=== PATIENT | male | born 1965 | race Two or more races ===

== ENCOUNTER 2020-05-09 06:16 | Outpatient (REF) | payer OTHER, SELFPAY ==
[2020-05-09 07:35] LABS: Alanine Aminotransferase 19 U/L (0-40); Alkaline Phosphatase 52 U/L (39-117); Anion Gap 10 (12-20); Aspartate Amino Transferase 18 U/L (5-37); Bilirubin Total 0.9 mg/dL (0.0-1.0); Blood Urea Nitrogen 18 mg/dL (9-16); Calcium 8.9 mg/dL (8.4-10.2); Carbon Dioxide 33 mmol/L (22-29); Chloride 101 mmol/L (96-108); Cholesterol 183 mg/dL; Estimated Glomerular Filt Rate 54; Glucose Fasting 100 mg/dL (60-99); HDL Cholesterol 47 mg/dL; LDL Cholesterol Calculated 123 mg/dl; Potassium 3.6 mmol/l (3.3-5.1); Sodium 140 mmol/L (135-145); Total Protein 6.8 g/dL (6.5-8.0); Triglycerides 65 mg/dL
[2020-05-09 07:56] LABS: TSH reflex Free T4 2.18 mIU/mL (0.32-4.0)
== END 2020-05-09 06:17 | disposition home or self-care (01) ==
LOC: HO.LAB 06:16
PROVIDERS: PCP Internal Medicine; Visit Provider Internal Medicine
DX: E78.00 Pure hypercholesterolemia, unspecified (principal); I12.9 Hypertensive chronic kidney disease with stage 1 through stage 4 chronic kidney disease, or unspecified chronic kidney disease; N18.30 Chronic kidney disease, stage 3 unspecified; E66.3 Overweight
CPT/HCPCS: 80053; 80061; 84443

== ENCOUNTER 2020-06-10 08:56 | Outpatient (REF) | payer OTHER, SELFPAY | END 2020-06-10 08:57 | disposition home or self-care (01) | LOC: HO.LAB 08:56 | PROVIDERS: PCP Internal Medicine; Visit Provider Internal Medicine | DX: Z20.828 Contact with and (suspected) exposure to other viral communicable diseases (principal) | CPT/HCPCS: C9803; U0003 ==

== ENCOUNTER 2020-08-31 14:56 | Outpatient (REF) | payer OTHER, SELFPAY ==
--- NOTE | 2020-08-31 16:00 | MHC.AU.P13 ---
Adult Audiological Evaluation Date of Visit: 08/31/20 Reason for Appointment: Patient has been noticing tinnitus in his right ear for at least one year. He reports that it is intermittent, but frequent. He may experience it for several days in a row, then go a few days without it. When it occurs, it is bothersome and is accompanied by a sensation that his ear is blocked. He reports occasional dizziness, which he describes as being on a boat or feeling off-balance. Overall, he has not noticed hearing difficulty in his day-to-day life. Does patient feel they have a hearing loss?: No Has hearing been tested previously?: No Hearing Handicap Inventory: HHIE SCORE: 2 Based on HHIE score, patient has: No perceived hearing handicap Ear History: Ear Deformity: None Reported Recent Ear Drainage: None Reported Recent Ear Pain: None Reported Recent Ear Infections: None Reported Ear Infections in Childhood: None Reported History of Ear Wax Buildup: None Reported Previous Ear Surgery: None Reported Bothersome Tinnitus/Ringing/Noises in Ears: Right Ear Ear used on the phone: Right Ear Blocked/Full Sensation in Ear(s): Right Ear History of occupational noise exposure?: Yes: 30 years in [employer] History: No Medical History: Medical History: Headache, High Blood Pressure Medical History: Stroke in 2012 Otoscopy: Right Ear: Unremarkable Left Ear: Unremarkable Tympanometry: Tympanometry performed due to: To assess integrity of the middle ear system Right Ear: Normal Middle Ear System (Type A) Left Ear: Normal Middle Ear System (Type A) Acoustic Reflexes: Screening Ipsilateral Reflex Probe Right Ear: Screening Ipsilateral Reflex Present at 1000 Hz Probe Left Ear: Screening Ipsilateral Reflex Present at 1000 Hz Otoacoustic Emissions Frequency Range Used: 1.6-8 kHz Right Ear Results: Present 1.6-2.5 kHz, absent 3.2-8.0 kHz Analysis: Reduced/Absent emissions suggest cochlear dysfunction Results are consistent with degree and configuration of hearing loss Left Ear Results: Present 1.6-3.6 kHz, absent 4.0-8.0 kHz Analysis: Reduced/Absent emissions suggest cochlear dysfunction Results are consistent with degree and configuration of hearing loss Hearing Evaluation: Transducer(s) Used: Insert Earphones (Double-chcked with Circumaural Headphones) Method: Conventional Audiometry Stimuli Used: Pure Tones Right Ear: Description of Hearing: Moderate rising to mild and sloping to moderate sensorineural hearing loss Left Ear: Description of Hearing: Normal from 250-3000 Hz, sloping to moderate sensorineural hearing loss Speech Recognition Threshold (SRT): Method Used: Recorded Lists Stimuli Used: Spondee Words Right Ear: 35 dBHL Left Ear: 5 dBHL Word Discrimination: Method: Recorded Lists Word Lists Used: NU-6 Right Ear: 72% at 70 dBHL Left Ear: 100% at 55 dBHL Most Comfortable Level (MCL): Right Ear: 70 dBHL Left Ear: 55 dBHL Interpretation of Results: Significant asymmetry noted- right ear worse Recommendations: Referral to Ear, Nose, and Throat is highly recommended to address newly-diagnosed asymmetrical sensorineural hearing loss. Diagnosis: Primary Diagnosis: H90.3 Bilateral Sensorineural Hearing Loss Secondary Diagnosis: H93.11 Tinnitus, Right Ear Services Performed: Comprehensive Audiological Evaluation (CPT 12038), Limited Otoacoustic Emissions (CPT 19771), Tympanometry (CPT 20492) Signature: Provider: Rissa Landers, CCC-A
== END 2020-08-31 14:57 | disposition home or self-care (01) ==
LOC: HO.SH 14:56
PROVIDERS: Visit Provider Internal Medicine
DX: H90.3 Sensorineural hearing loss, bilateral (principal); H93.11 Tinnitus, right ear
CPT/HCPCS: 92557; 92567; 92587

== ENCOUNTER 2020-09-18 05:44 | Emergency (ER) | payer OTHER, SELFPAY ==
--- NOTE | 2020-09-18 | ECG_ITS ---
Test Reason : EPIGASTRIC PAIN Blood Pressure : / mmHG Vent. Rate : 067 BPM Atrial Rate : 067 BPM P-R Int : 152 ms QRS Dur : 080 ms QT Int : 442 ms P-R-T Axes : 044 013 043 degrees QTc Int : 467 ms Normal sinus rhythm Normal ECG No previous ECGs available Referred By: Generic ED Physician Electronically Signed By:PRANAV SUAREZ
--- NOTE | ~2020-09-18 | CT_ITS ---
EXAMINATION: CT ABDOMEN AND PELVIS WITHOUT CONTRAST CLINICAL INFORMATION: Abdominal pain. COMPARISON: July 03, 2015. TECHNIQUE: Contiguous axial thin section helical images of the abdomen and pelvis were performed without oral or IV contrast. The data set was reformatted in the coronal and sagittal planes and reviewed on an independent workstation. DLP: 741 mGy-cm. FINDINGS: There is atelectasis or scarring within the lateral basal segment of the right lower lobe. The visualized lung bases are otherwise clear. The visualized portions of the heart are unremarkable. The liver is of normal size and attenuation without focal lesions nor intrahepatic biliary ductal dilation. There are calculi within the gallbladder lumen. There is no wall thickening or discernible pericholecystic fluid. The spleen, pancreas, adrenal glands are unremarkable. Both kidneys are of normal size and attenuation without hydronephrosis or nephrolithiasis. There is no abdominal free fluid. There is neither mesenteric nor retroperitoneal lymphadenopathy. Normal unopacified loops of small and large bowel are identified. A normal appendix is identified. There is no pelvic free fluid. The urinary bladder is unremarkable. There is neither pelvic nor inguinal lymphadenopathy. There is a fat-containing right inguinal hernia. Bone windows: Neither sclerotic nor lytic bone lesions are identified. CT/CT abdomen pelvis wo con IMPRESSION: No acute abdominal or pelvic inflammatory or infectious processes. Cholelithiasis without evidence of cholecystitis. Automated exposure control (Care Dose) Adjustment of the mA and/or kv according to patient size (this includes techniques or standardized protocols for targeted exams where dose is matched to indication / reason for exam; i.e. extremities or head).
[2020-09-18 06:01] VITALS: BP 124/80; PULSE 63; RESP 22; TEMP 36.3; O2SAT 94; BMI 29.5
--- NOTE | 2020-09-18 06:14 | PC.NURSE ---
Pt ambulating from the waiting room into room 18. Pt is CAOx4, speaking full sentences but holding abdomen, grimacing, unable to find a comfortable position. Pt reports sharp pains to epigastric area radiating into chest, denies burning sensation. Pt also reporting SOB, denies N/V. IV established, labs obtained. EKG obtained by solder technician. Awaiting primary MD jose.
[2020-09-18 06:23] LABS: MANUAL DIFF FLAG NO
[2020-09-18 06:30] LABS: Basophils Absolute Auto 0.1 X10*3/uL (0.0-0.2); Basophils Percent Auto 0.8 % (0-2); Eosinophils Absolute Auto 0.6 X10*3/uL (0.0-0.4); Eosinophils Percent Auto 6.6 % (0-4); Hematocrit 43.4 % (42-52); Hemoglobin 14.5 g/dl (14.0-18.0); Imm Gran Abs Auto 0.04 X10*3/uL (0.00-0.03); Imm Gran Pct Auto 0.4 % (0.0-0.4); Lymphocytes Absolute Auto 3.2 X10*3/uL (1.2-4.9); Lymphocytes Percent Auto 34.7 % (20-40); Mean Corpuscular HGB Conc 33.4 g/dl (31.0-36.0); Mean Corpuscular Hemoglobin 28.7 pg (27.0-33.0); Mean Corpuscular Volume 85.8 fL (80-98); Mean Platelet Volume 10.1 fL (9.4-12.4); Monocytes Absolute Auto 0.9 X10*3/uL (0.1-1.2); Monocytes Percent Auto 9.3 % (2-11); Neutrophils Absolute Auto 4.5 X10*3/uL (2.0-8.3); Neutrophils Percent Auto 48.2 % (45-73); Platelet Count 226 X10*3/uL (160-400); Red Blood Count 5.06 X10*6/uL (4.60-5.80); Red Cell Distribution Width 12.6 % (11.0-16.0); White Blood Count 9.3 X10*3/uL (4.8-10.8)
[2020-09-18 06:48] LABS: Alanine Aminotransferase 32 U/L (0-40); Albumin Level 4.1 g/dL (3.5-5.0); Alkaline Phosphatase 61 U/L (39-117); Anion Gap 14 (12-20); Aspartate Amino Transferase 49 U/L (5-37); Bilirubin Direct 0.4 mg/dL (0.0-0.5); Bilirubin Total 0.7 mg/dL (0.0-1.0); Blood Urea Nitrogen 24 mg/dL (9-16); Calcium 9.1 mg/dL (8.4-10.2); Carbon Dioxide 28 mmol/L (22-29); Chloride 102 mmol/L (96-108); Creatinine Clr Calc Pharmacy 71.4; Estimated Glomerular Filt Rate 57; Glucose Random 162 mg/dL (60-115); Lipase 23 U/L (8-78); Potassium 3.4 mmol/L (3.3-5.1); Sodium 141 mmol/L (135-145); Total Protein 6.9 g/dL (6.5-8.0)
--- NOTE | 2020-09-18 06:53 | ED.ABDPAIN ---
HPI - Abdominal Pain General Chief Complaint: Abdominal Pain Stated Complaint: abd pain Time Seen by Provider: 09/18/20 06:15 Source: patient Mode of arrival: ambulatory Limitations: no limitations History of Present Illness HPI narrative: [age] year old male came in with upper pain started since last night described the pain as sharp pain localized to the epigastric area with no radiation, pain is constant since last night, describes the pain as severe 7/10, did not try to eat so do not know if food will make it worse, but nothing make it better either, associated with sweating but no any other symptoms specifically no nausea, no vomiting, no diarrhea. Never had similar abdominal pain past. Patient admitted to drinking alcohol last night. Related Data Home Medications Medication Instructions Recorded Confirmed aspirin 81 mg tablet,delayed 81 mg PO DAILY 05/09/20 08/15/20 release multivitamin 1 tab PO DAILY 08/15/20 08/15/20 Previous Rx's Medication Instructions Recorded lisinopril 20 1 tab PO DAILY 90 Days #90 tab 05/10/20 mg-hydrochlorothiazide 12.5 mg tablet pravastatin 20 mg tablet 20 mg PO DAILY 90 Days #90 tab 05/10/20 Allergies Allergy/AdvReac Type Severity Reaction Status Date / Time No Known Allergies Allergy Verified 08/15/20 17:23 [No Known Allergies*] Review of Systems Review of Systems All other systems are reviewed and are negative Constitutional: Reports as per HPI and Reports no additional constitutional complaints Eyes: Reports as per HPI and Reports no additional eye complaints Reports system reviewed and no additional complaints, except as documented Cardiovascular: Reports as per HPI and Reports no additional cardiovascular complaints Respiratory: Reports as per HPI and Reports no additional respiratory complaints Gastrointestinal: Reports as per HPI and Reports no additional gastrointestinal complaints Genitourinary: Reports no additional female genitourinary complaints Musculoskeletal: Reports no additional musculoskeletal complaints Skin/Breast: Reports system reviewed and no additional complaints, except as docu Psychiatric: Reports no additional psychiatric complaints Endocrine: Reports no additional endocrine complaints Hematologic/Lymphatic: Reports no additional hematologic/lymphatic complaints Allergic/Immunologic: Reports no additional allergic/immunologic complaints Reports system reviewed and no additional complaints, except as documented and Reports Abnormal speech present Physical Exam Vital Signs: Vital Signs: Last Vital Signs Temp 97.4 F 09/18/20 06:01 Pulse 63 09/18/20 06:01 Resp 22 H 09/18/20 06:01 BP 124/80 03/22/21 06:01 Pulse Ox 94 09/18/20 06:01 Body Mass Index 29.5 Vital signs have been reviewed as appeared to be correct. Blood pressure normal. Heart rate normal. Respiration rate normal. Temperature normal. Oxygen saturation normal. Appearance: Alert. Oriented X3. No acute distress. Head: Normal external exam. Normocephalic. Atraumatic. No Francisco signs noted. No raccoon eyes noted Eyes: PERRLA. EOMI. Conjunctiva and sclera normal. Eyelids normal. ENT: TM's Normal. Pharynx normal. Uvula midline. Moist mucous membranes. No trismus noted. No drooling noted. No muffled voice noted. Neck: Normal inspection. Neck supple. FROM. No adenopathy. Thyroid Normal. No meningeal signs. No neck mass noted. CVS: Normal heart rate and rhythm. Heart sound normal. No murmurs noted. Pulses normal throughout. Respiratory: No respiratory distress. Painless inspiration. Breath sounds normal. No wheezes/rales/rhonchi noted. Chest nontender. No accessory muscle usage noted or decreased air movement noted. Abdomen: Soft, mild epigastric tenderness, no rebound tenderness , no guarding.. Bowel sounds normal in all 4 quadrants. No distention noted. No organomegaly noted. No visible injury noted. Back: No CVA tenderness. Full range of motion noted. Skin: Skin warm and dry. Normal skin color. Normal skin turgor. No rashes/lesions/lacerations noted. Extremities: No lower extremity edema. Extremities exhibit normal range of motion. Extremities nontender. Neuro: Oriented X 3. No motor deficit. No sensory deficit. Reflexes normal. Course Course Course Narrative: Assessment and plan. 55-year-old male who presented with epigastric pain since last night after he drink alcohol, workup revealed cholelithiasis without evidence of cholecystitis, patient's symptoms thought to be related to more of gastritis after drinking alcohol rather than cholelithiasis. Patient's overall feels better able to tolerate saltine in the emergency department without aggravation of his symptoms. Patient be stable to be discharged on Prilosec, and elective follow-up with surgery for cholelithiasis. MDM - Abdominal Pain Lab Data Attestation: I reviewed the patient's lab results. Result diagrams: 09/18/20 06:11 09/18/20 06:11 Labs: Lab Results 09/18/20 09/18/20 09/18/20 Range/Units 06:11 06:11 06:11 WBC 9.3 (4.8-10.8) X10*3/uL RBC 5.06 (4.60-5.80) X10*6/uL Hgb 14.5 (14.0-18.0) g/dl Hct 43.4 (42-52) % MCV 85.8 (80-98) fL MCH 28.7 (27.0-33.0) pg MCHC 33.4 (31.0-36.0) g/dl RDW 12.6 (11.0-16.0) % Plt Count 226 (160-400) X10*3/uL MPV 10.1 (9.4-12.4) fL Immature Gran % (Auto) 0.4 (0.0-0.4) % Neut % (Auto) 48.2 (45-73) % Lymph % (Auto) 34.7 (20-40) % Meagher % (Auto) 9.3 (2-11) % Eos % (Auto) 6.6 H (0-4) % Baso % (Auto) 0.8 (0-2) % Lymph # (Auto) 3.2 (1.2-4.9) X10*3/uL Meagher # (Auto) 0.9 (0.1-1.2) X10*3/uL Eos # (Auto) 0.6 H (0.0-0.4) X10*3/uL Baso # (Auto) 0.1 (0.0-0.2) X10*3/uL Abs Immat Gran (auto) 0.04 H (0.00-0.03) X10*3/uL Absolute Neuts (auto) 4.5 (2.0-8.3) X10*3/uL Absolute Nucleated RBC 0.000 (0.0-0.012) X10*3/uL Nucleated RBC % (auto) 0.0 (0.0-0.2) /100WBC Hold Blue Top SEE NOTE Sodium 141 (135-145) mmol/L Potassium 3.4 (3.3-5.1) mmol/L Chloride 102 (96-108) mmol/L Carbon Dioxide 28 (22-29) mmol/L Anion Gap 14 (12-20) BUN 24 H (9-16) mg/dL Creatinine 1.30 (0.5-1.4) mg/dL Estim Creat Clear Calc 71.4 Estimated GFR 57 Random Glucose 162 H (60-115) mg/dL Calcium 9.1 (8.4-10.2) mg/dL Total Bilirubin 0.7 (0.0-1.0) mg/dL Direct Bilirubin 0.4 (0.0-0.5) mg/dL AST 49 H D (5-37) U/L ALT 32 (0-40) U/L Alkaline Phosphatase 61 (39-117) U/L Troponin I High Sens (<3.5-35.0) ng/L Total Protein 6.9 (6.5-8.0) g/dL Albumin 4.1 (3.5-5.0) g/dL Lipase 23 (8-78) U/L 09/18/ Range/Units 06:11 WBC (4.8-10.8) X10*3/uL RBC (4.60-5.80) X10*6/uL Hgb (14.0-18.0) g/dl Hct (42-52) % MCV (80-98) fL MCH (27.0-33.0) pg MCHC (31.0-36.0) g/dl RDW (11.0-16.0) % Plt Count (160-400) X10*3/uL MPV (9.4-12.4) fL Immature Gran % (Auto) (0.0-0.4) % Neut % (Auto) (45-73) % Lymph % (Auto) (20-40) % Meagher % (Auto) (2-11) % Eos % (Auto) (0-4) % Baso % (Auto) (0-2) % Lymph # (Auto) (1.2-4.9) X10*3/uL Meagher # (Auto) (0.1-1.2) X10*3/uL Eos # (Auto) (0.0-0.4) X10*3/uL Baso # (Auto) (0.0-0.2) X10*3/uL Abs Immat Gran (auto) (0.00-0.03) X10*3/uL Absolute Neuts (auto) (2.0-8.3) X10*3/uL Absolute Nucleated RBC (0.0-0.012) X10*3/uL Nucleated RBC % (auto) (0.0-0.2) /100WBC Hold Blue Top Sodium (135-145) mmol/L Potassium (3.3-5.1) mmol/L Chloride (96-108) mmol/L Carbon Dioxide (22-29) mmol/L Anion Gap (12-20) BUN (9-16) mg/dL Creatinine (0.5-1.4) mg/dL Estim Creat Clear Calc Estimated GFR Random Glucose (60-115) mg/dL Calcium (8.4-10.2) mg/dL Total Bilirubin (0.0-1.0) mg/dL Direct Bilirubin (0.0-0.5) mg/dL AST (5-37) U/L ALT (0-40) U/L Alkaline Phosphatase (39-117) U/L Troponin I High Sens 4.9 (<3.5-35.0) ng/L Total Protein (6.5-8.0) g/dL Albumin (3.5-5.0) g/dL Lipase (8-78) U/L Imaging Data CT scan - abdomen: Radiologist's impression: No acute abdominal or pelvic inflammatory or infectious processes. Cholelithiasis without evidence of cholecystitis. ECG Data Interpretation: Normal sinus rhythm at 67 beats per minute, normal intervals, normal axis deviation, no ST-T changes. Discharge Plan Discharge Clinical Impression: Gastritis, Cholelithiasis Patient Disposition: Home, Self-Care Instructions: Gastritis (ED), Gallstones (ED) Prescriptions: No Action aspirin [Adult Low Dose Aspirin] 81 mg tablet,delayed release (DR/EC) 81 mg PO DAILY RF: 0 lisinopril-hydrochlorothiazide 20-12.5 mg tablet 1 tab PO DAILY 90 Days Qty: 90 RF: 3 pravastatin 20 mg tablet 20 mg PO DAILY 90 Days Qty: 90 RF: 3 multivitamin Tablet 1 tab PO DAILY RF: 0 PMFSH Past Medical History Medical History Benign essential hypertension Chronic kidney disease (CKD), stage III (moderate) Overweight (BMI 25.0-29.9) Pure hypercholesterolemia Tinnitus of right ear Surgical History No pertinent past surgical history Family History Family History Father No problems noted. Mother Breast cancer Maternal Grandmother Breast cancer Social History Social History Alcohol intake: former Smoking Status: Never smoker Advance Directives: No Advance Directives Information Provided: No
[2020-09-18 07:06] LABS: Troponin-I High Sensitivity 4.9 ng/L (<3.5-35.0)
[2020-09-18] MEDS: Famotidine/PF 20 MG/2 ML VIAL IVPUSH (07:13)
[2020-09-18] MEDS: 0.9 % Sodium Chloride 1,000 ML 999 ML IVCONT (07:13)
--- NOTE | 2020-09-18 07:51 | PC.NURSE ---
states pain improving, having crackers and saleem ham for po challenge
[2020-09-18 08:47] VITALS: BP 145/88; PULSE 72; RESP 18; O2SAT 98
== END 2020-09-18 08:47 | disposition home or self-care (01) ==
PROVIDERS: Emergency Medicine; Emergency Provider Emergency Medicine; PCP Internal Medicine
DX: K29.70 Gastritis, unspecified, without bleeding (principal); K80.20 Calculus of gallbladder without cholecystitis without obstruction; I12.9 Hypertensive chronic kidney disease with stage 1 through stage 4 chronic kidney disease, or unspecified chronic kidney disease; N18.30 Chronic kidney disease, stage 3 unspecified; Z79.82 Long term (current) use of aspirin; Z79.899 Other long term (current) drug therapy
CPT/HCPCS: 36415; 74176; 80053; 80076; 83690; 84484; 85025; 93005; 96361; 96374; 99283; 99284

== ENCOUNTER → 2020-09-27 14:00 | Outpatient (BNVA) | payer OTHER, SELFPAY | PROVIDERS: PCP Internal Medicine; Visit Provider Physician Assistant ==

== ENCOUNTER → 2020-10-17 07:37 | Outpatient (REF) | payer OTHER, SELFPAY ==
--- NOTE | ~2020-10-17 | NM_ITS ---
EXAMINATION: HIDA SCAN. CLINICAL INFORMATION: Right upper quadrant pain cholelithiasis. COMPARISON: None TECHNIQUE: Following intravenous administration of 5 mCi of 99m technetium mebrofenin, imaging over the right upper quadrant was obtained up to 2 hours. FINDINGS: There is normal hepatic uptake with CBD visualized at 8 minutes. Duodenum is visualized by 11 minutes. Cystic duct is not visualized up to 2 hours. There is no isotope activity remaining within the liver at this point almost all activity seen within the small bowel. The exam was terminated and CCK was not administered. NM/NM hepatobiliary wo pharm IMPRESSION: Obstructive cystic duct up to 2 wires. There is no radioisotope activity seen remaining within the liver at 2 hours. The exam was terminated. Patent CBD. Normal hepatic uptake.
[2020-10-17 08:05] LABS: MANUAL DIFF FLAG NO
[2020-10-17 08:19] LABS: Basophils Absolute Auto 0.1 X10*3/uL (0.0-0.2); Basophils Percent Auto 1.1 % (0-2); Eosinophils Absolute Auto 0.6 X10*3/uL (0.0-0.4); Eosinophils Percent Auto 7.9 % (0-4); Hematocrit 44.9 % (42-52); Hemoglobin 14.8 g/dl (14.0-18.0); Imm Gran Abs Auto 0.02 X10*3/uL (0.00-0.03); Imm Gran Pct Auto 0.3 % (0.0-0.4); Lymphocytes Absolute Auto 1.9 X10*3/uL (1.2-4.9); Lymphocytes Percent Auto 25.6 % (20-40); Mean Corpuscular Hemoglobin 28.5 pg (27.0-33.0); Mean Corpuscular Volume 86.3 fL (80-98); Mean Platelet Volume 10.1 fL (9.4-12.4); Monocytes Absolute Auto 0.7 X10*3/uL (0.1-1.2); Monocytes Percent Auto 9.9 % (2-11); Neutrophils Percent Auto 55.2 % (45-73); Platelet Count 253 X10*3/uL (160-400); Red Cell Distribution Width 12.7 % (11.0-16.0); White Blood Count 7.2 X10*3/uL (4.8-10.8)
[2020-10-17 08:49] LABS: Alanine Aminotransferase 33 U/L (0-40); Albumin Level 4.1 g/dL (3.5-5.0); Alkaline Phosphatase 58 U/L (39-117); Anion Gap 11 (12-20); Aspartate Amino Transferase 24 U/L (5-37); Blood Urea Nitrogen 21 mg/dL (9-16); Calcium 9.5 mg/dL (8.4-10.2); Carbon Dioxide 32 mmol/L (22-29); Chloride 103 mmol/L (96-108); Cholesterol 183 mg/dL; Estimated Glomerular Filt Rate 59; Glucose Fasting 109 mg/dL (60-99); HDL Cholesterol 46 mg/dL; LDL Cholesterol Calculated 123 mg/dl; Potassium 5.1 mmol/L (3.3-5.1); Sodium 141 mmol/L (135-145); Triglycerides 70 mg/dL
== END ==
LOC: HO.NUCMED 07:37
PROVIDERS: Absent Provider Internal Medicine; PCP Internal Medicine; Visit Provider Physician Assistant
DX: R10.11 Right upper quadrant pain (principal); K80.20 Calculus of gallbladder without cholecystitis without obstruction; E78.00 Pure hypercholesterolemia, unspecified; I12.9 Hypertensive chronic kidney disease with stage 1 through stage 4 chronic kidney disease, or unspecified chronic kidney disease; N18.30 Chronic kidney disease, stage 3 unspecified
CPT/HCPCS: 36415; 78226; 80053; 80061; 85025; A9537

== ENCOUNTER → 2020-10-19 13:19 | Outpatient (BNVA) | payer OTHER, SELFPAY | PROVIDERS: PCP Internal Medicine; Visit Provider Physician Assistant ==

== ENCOUNTER → 2020-11-16 14:18 | Outpatient (BNVA) | payer OTHER, SELFPAY | PROVIDERS: PCP Internal Medicine; Referring Provider Internal Medicine; Visit Provider Surgery ==

== ENCOUNTER 2020-11-29 07:36 | Day surgery (SDC) | payer OTHER, SELFPAY ==
--- NOTE | 2020-11-28 09:14 | HO.ANESPROP2 ---
Documented by User: Shanti Dumont 11/28/20 09:16 HPI - Anesthesia Eval Consult details Narrative: 55yo M for Cholecystectomy Laparoscopic,poss open PMFSH Active Problems Active Problems: All Active Problems (Updated 11/14/20 @ 23:21 by Schuyler Curiel MD) Cholelithiasis and acute cholecystitis with obstruction (Acute) GERD without esophagitis (Acute) Abnormal biliary HIDA scan (Acute) Cholecystolithiasis (Acute) RUQ pain (Acute) Tinnitus of right ear (Acute) Overweight (BMI 25.0-29.9) (Acute) Chronic kidney disease (CKD), stage III (moderate) (Acute) Pure hypercholesterolemia (Acute) Benign essential hypertension (Acute) Past Medical History Medical History Benign essential hypertension Chronic kidney disease (CKD), stage III (moderate) GERD without esophagitis Overweight (BMI 25.0-29.9) Pure hypercholesterolemia RUQ pain Tinnitus of right ear Family History Family History Father No problems noted. Mother Breast cancer Maternal Grandmother Breast cancer Surgical History Surgical History No pertinent past surgical history Social History Social History Household Members: Spouse Alcohol intake: current Alcohol intake frequency: holidays/special occasions only Patient Tobacco Use Status: Never used Tobacco Use of substances other than those prescribed or required for medical reasons: No Have you been hit, kicked, punched, or otherwise hurt by someone within the past year? If so, by whom?: No Are you DNR?: No Advance Directives: No Advance Directives Information Provided: Yes Current occupational status: employed Current occupation: [employer] Allergies Allergy/AdvReac Type Severity Reaction Status Date / Time No Known Allergies Allergy Verified 11/14/20 17:57 [No Known Allergies*] Home Medications Medication Instructions Recorded Confirmed Last Taken Type aspirin 81 mg tablet,delayed 81 mg PO DAILY 05/09/20 11/14/20 Unknown History release multivitamin 1 tab PO DAILY 08/15/20 11/14/20 Unknown History Exam Exam Date and Time: November 28, 2020 0914 Pertinent Lab Results Pertinent Lab Results: Laboratory Tests 10/17/20 10/17/20 07:55 07:55 WBC 7.2 Hgb 14.8 Hct 44.9 Plt Count 253 Sodium 141 Potassium 5.1 D Chloride 103 Carbon Dioxide 32 H BUN 21 H Creatinine 1.26 Narrative Narrative: EKG 08/2020 Vent. Rate : 067 BPM Atrial Rate : 067 BPM P-R Int : 152 ms QRS Dur : 080 ms QT Int : 442 ms P-R-T Axes : 044 013 043 degrees QTc Int : 467 ms Normal sinus rhythm Normal ECG No previous ECGs available Assessment and Plan Assessment Anesthesia Assessment: Chart Reviewed Documented by User: Yumiko Bee 11/29/20 09:00 PMFSH Past Medical History Medical History Benign essential hypertension Chronic kidney disease (CKD), stage III (moderate) GERD without esophagitis Overweight (BMI 25.0-29.9) Pure hypercholesterolemia RUQ pain Tinnitus of right ear Family History Family History Father No problems noted. Mother Breast cancer Maternal Grandmother Breast cancer Surgical History Surgical History No pertinent past surgical history Social History Social History Household Members: Spouse Alcohol intake: current Alcohol intake frequency: holidays/special occasions only Patient Tobacco Use Status: Never used Tobacco Use of substances other than those prescribed or required for medical reasons: No Have you been hit, kicked, punched, or otherwise hurt by someone within the past year? If so, by whom?: No Are you DNR?: No Advance Directives: No Advance Directives Information Provided: Yes Current occupational status: employed Current occupation: [employer] Allergies Allergy/AdvReac Type Severity Reaction Status Date / Time No Known Allergies Allergy Verified 11/14/20 17:57 [No Known Allergies*] Home Medications Medication Instructions Recorded Confirmed Last Taken Type aspirin 81 mg tablet,delayed 81 mg PO DAILY 05/09/20 11/14/20 Unknown History release multivitamin 1 tab PO DAILY 08/15/20 11/14/20 Unknown History Exam Airway Mallampati Class: II TM Dist: >3cm Neck ROM: Full Assessment and Plan Assessment Anesthesia Assessment: Anesthesia Plan Discussed and Chart Reviewed Final Anesthetic Review NPO: Yes ASA Class: III Final Preanesthetic Review: No Changes in Pt Med Stat, Meds/Allgs Chart Reviewed, Consent Obtained/Reviewed and Anes Risks/Benef Reviewed Patient Risk: Intermediate Procedure Risk: Low Assessment/Block/Sedation in SS: Assess/Block/Sedation-SS Anesthetic Plan Anesthetic Plan: GA Disposition: Standard PACU
[2020-11-29] VITALS (9 sets, daily range): BP systolic 114–138; BP diastolic 59–90; PULSE 60–85; RESP 16–18; TEMP 36.4–36.6; O2SAT 93–100; BMI 29.3
--- NOTE | 2020-11-29 08:43 | MHC.SHP ---
Pre-Procedural Eval Section A The patient is an INPATIENT: No Changes since office visit: Yes Patient answered all questions; No Cold of Flu in the past 2 weeks, No New Medical Problems and No Changes in Medication The History & Physical has been completed within 30 days and I have reviewed it.: Yes Section B Chief Complaint: calculus of gallbladder with acute cholecystitis Allergies: Allergies Allergy/AdvReac Type Severity Reaction Status Date / Time No Known Allergies Allergy Verified 11/14/20 17:57 [No Known Allergies*] Plan Diagnosis/Plan: Unchanged I have reviewed the history and physical and performed a pertinent physical examination on my patient. No changes have occurred unless specified.
[2020-11-29] MEDS: Lactated Ringers 1,000 ML 100 ML IVCONT (08:45)
--- NOTE | 2020-11-29 10:28 | W.PM.OPN ---
Operative Note Operative Note Date of Service: 11/29/20 Narrative: Preoperative diagnosis: Acute cholecystitis secondary to cholelithiasis Postoperative diagnosis: Same Procedure: Laparoscopic cholecystectomy Surgeon: Zoran Lauren MD Semiautomatic Stitcher Operator: No physician Anesthesia: General endotracheal Indications for procedure: 55-year-old male patient presenting with complaints of abdominal pain in the right upper quadrant. Workup revealed gallstones within the gallbladder. Findings are suggestive of acute cholecystitis due to cholelithiasis. Operative findings: Acutely inflamed gallbladder with multiple adhesions to the undersurface of the gallbladder. Large obstructing gallstone noted at the neck of the gallbladder. Hydropic gallbladder fluid suggestive of an obstructed gallbladder. Specimen: Gallbladder Estimated blood loss: 10 mL Complications: None Procedure details: Patient was brought to the OR and placed in a supine position. After administering general anesthesia the patient's abdomen was prepped with ChloraPrep and draped in a sterile fashion. Local anesthesia consisting of 0.25% Sensorcaine with epinephrine was infiltrated in a periumbilical region. A 5 mm incision was made above the umbilicus in a transverse fashion. The Veress needle was then inserted while elevating abdominal cavity with towel clips. After positive drop test the abdomen was insufflated to a pressure of 15 mm of mercury. The Veress needle was then removed and a 5 mm trocar inserted. The camera was inserted in the abdomen explored. A 12 mm trocar was then placed in the epigastrium and two 5 mm trocars placed in the right upper quadrant. The patient was placed in reverse Trendelenburg positioning and rotated to the left. The gallbladder was grasped with the fundus and retracted cephalad.. Adhesions were taken down off the gallbladder wall surface with electrocautery and the Dolphin dissector. The infundibulum Was then grasped and retracted away from the liver bed. The Dolphin dissected was then used to dissect the peritoneum off the infundibulum to reveal the junction with the cystic duct. Cystic artery was noted slightly medial and posterior to the cystic duct. After obtaining a critical view the cystic duct was doubly clipped and divided. The cystic artery was then doubly clipped and divided. The gallbladder was then dissected off the liver bed using electrocautery with an L hook. Hemostasis was assured all times using the electrocautery. When the gallbladder is completely dissected off the liver bed was placed in an Endo-Catch bag and brought out through the epigastric incision. The gallbladder was sent to pathology for further examination. The abdomen was then re-examined. The liver bed was irrigated and suctioned dry. No bleeding or bile leak could be identified. CO2 was then evacuated and all trocars removed. Fascia was closed at the epigastric incision using a [id number] 0 Polysorb suture. Skin was closed in all incisions using a subcuticular 4 0 Polysorb suture. Sterile dressings consisting of Steri-Strips, 2 x 2 gauze, and Tegaderm were then applied. The patient tolerated the procedure well. Sponge instrument and needle counts reported as correct. The patient was transferred to PACU in stable condition.
== END 2020-11-29 12:20 | disposition home or self-care (01) ==
PROVIDERS: PCP Internal Medicine; Visit Provider Surgery
PROC: 0FT44ZZ Resection of Gallbladder, Percutaneous Endoscopic Approach (ICD-10-PCS; CPT 47562; principal; 2020-11-29 09:10)
DX: K80.12 Calculus of gallbladder with acute and chronic cholecystitis without obstruction (principal); K82.8 Other specified diseases of gallbladder; K82.1 Hydrops of gallbladder; I12.9 Hypertensive chronic kidney disease with stage 1 through stage 4 chronic kidney disease, or unspecified chronic kidney disease; N18.30 Chronic kidney disease, stage 3 unspecified; K21.9 Gastro-esophageal reflux disease without esophagitis; Z79.899 Other long term (current) drug therapy
CPT/HCPCS: 47562; 88304; J1100; J1170; J1885; J2250; J2405; J3010

== ENCOUNTER → 2020-12-07 13:27 | Outpatient (BNVA) | payer OTHER, SELFPAY | PROVIDERS: PCP Internal Medicine; Visit Provider Surgery ==

== ENCOUNTER 2021-05-07 07:51 | Outpatient (REF) | payer OTHER, SELFPAY ==
[2021-05-07 08:48] LABS: Alanine Aminotransferase 19 U/L (0-40); Albumin Level 4.1 g/dL (3.5-5.0); Alkaline Phosphatase 58 U/L (39-117); Anion Gap 10 (12-20); Aspartate Amino Transferase 17 U/L (5-37); Bilirubin Total 0.9 mg/dL (0.0-1.0); Blood Urea Nitrogen 18 mg/dL (9-16); Calcium 9.3 mg/dL (8.4-10.2); Carbon Dioxide 31 mmol/L (22-29); Chloride 103 mmol/L (96-108); Cholesterol 199 mg/dL; Estimated Glomerular Filt Rate 52; Glucose Fasting 108 mg/dL (60-99); HDL Cholesterol 52 mg/dL; LDL Cholesterol Calculated 133 mg/dl; Potassium 4.3 mmol/L (3.3-5.1); Sodium 140 mmol/L (135-145); Triglycerides 72 mg/dL
== END 2021-05-07 07:52 | disposition home or self-care (01) ==
LOC: HO.LAB 07:51
PROVIDERS: PCP Internal Medicine; Visit Provider Internal Medicine
DX: E78.00 Pure hypercholesterolemia, unspecified (principal)
CPT/HCPCS: 36415; 80053; 80061

== ENCOUNTER 2021-09-26 07:10 | Outpatient (REF) | payer OTHER, SELFPAY ==
[2021-09-26 07:45] LABS: MANUAL DIFF FLAG NO
[2021-09-26 08:12] LABS: Basophils Absolute Auto 0.1 X10*3/uL (0.0-0.2); Eosinophils Absolute Auto 0.3 X10*3/uL (0.0-0.4); Eosinophils Percent Auto 3.9 % (0-4); Hematocrit 44.9 % (42.0-52.0); Imm Gran Abs Auto 0.03 X10*3/uL (0.00-0.03); Imm Gran Pct Auto 0.4 % (0.0-0.4); Lymphocytes Absolute Auto 2.4 X10*3/uL (1.2-4.9); Lymphocytes Percent Auto 30.4 % (20-40); Mean Corpuscular HGB Conc 33.4 g/dl (31.0-36.0); Mean Corpuscular Hemoglobin 28.5 pg (27.0-33.0); Mean Corpuscular Volume 85.4 fL (80.0-98.0); Mean Platelet Volume 10.3 fL (9.4-12.4); Monocytes Absolute Auto 0.7 X10*3/uL (0.1-1.2); Monocytes Percent Auto 8.3 % (2-11); Neutrophils Absolute Auto 4.4 x10*3/uL (2.0-8.3); Platelet Count 289 X10*3/uL (160-400); Red Blood Count 5.26 X10*6/uL (4.60-5.80); Red Cell Distribution Width 12.6 % (11.0-16.0); White Blood Count 7.9 X10*3/uL (4.8-10.8)
[2021-09-26 08:37] LABS: Alanine Aminotransferase 29 U/L (0-40); Albumin Level 4.1 g/dL (3.5-5.0); Alkaline Phosphatase 61 U/L (39-117); Anion Gap 12 (12-20); Aspartate Amino Transferase 20 U/L (5-37); Bilirubin Total 0.9 mg/dL (0.0-1.0); Blood Urea Nitrogen 23 mg/dL (9-16); Calcium 9.9 mg/dL (8.4-10.2); Carbon Dioxide 31 mmol/L (22-29); Chloride 101 mmol/L (96-108); Cholesterol 181 mg/dL; Estimated Glomerular Filt Rate > 60; Glucose Fasting 100 mg/dL (60-99); HDL Cholesterol 43 mg/dL; LDL Cholesterol Calculated 115 mg/dl; Potassium 3.7 mmol/L (3.3-5.1); Sodium 140 mmol/L (135-145); Total Protein 7.2 g/dL (6.5-8.0); Triglycerides 119 mg/dL
[2021-09-26 08:40] LABS: Appearance Urine CLEAR; Color Urine YELLOW; Glucose Urine UA NEG (NEG); Leukocyte Esterase Urine NEG (NEG); Nitrite Urine NEG (NEG); PH 6.5 (5.0-8.0); Urine Blood NEG (NEG); Urine Ketones NEG (NEG); Urine Protein NEG (NEG-TRACE)
[2021-09-26 09:00] LABS: TSH reflex Free T4 2.26 uIU/mL (0.32-4.0); Vitamin D 25-OH Total 29.1 ng/mL (>30)
== END 2021-09-26 07:11 | disposition home or self-care (01) ==
LOC: HO.LAB 07:10
PROVIDERS: PCP Internal Medicine; Visit Provider Internal Medicine
DX: I10 Essential (primary) hypertension (principal); E78.00 Pure hypercholesterolemia, unspecified; E55.9 Vitamin D deficiency, unspecified
CPT/HCPCS: 36415; 80053; 80061; 81003; 82306; 84443; 85025

== ENCOUNTER 2022-01-02 14:51 | Outpatient (REF) | payer OTHER, SELFPAY ==
--- NOTE | ~2022-01-02 | MR_ITS ---
EXAMINATION: MR BRAIN WITHOUT CONTRAST CLINICAL INFORMATION: Evaluate for cerebrovascular accident, microvascular disease. COMPARISON: 02/24/2020 MRI. TECHNIQUE: Multiplanar multisequence MR imaging of the brain was done without IV contrast. FINDINGS: BRAIN VOLUME: Mild generalized diffuse brain parenchymal volume loss stable in appearance from previous study within the limitations of a qualitative assessment. STRUCTURAL: No malformations. BRAIN AND MENINGES: DWI sequence demonstrates no restricted diffusion to suggest acute or subacute cerebral ischemia. Redemonstrated are zones of FLAIR/T2 signal hyperintensity within the white matter of both cerebral hemispheres with a similar overall distribution and appearance to the previous study consistent with chronic ischemic microangiopathy. Gradient refocused imaging demonstrates no evidence for hemorrhage, hemosiderin staining or abnormal mineral deposition. No extra-axial fluid collections, space-occupying process or mass effect are identified. Prominent perivascular spaces in the parietal white matter bilaterally are stable. Tiny remote deep white matter infarct right parietal white matter stable in appearance. VENTRICLES AND SUBARACHNOID SPACES: The ventricular system and subarachnoid spaces appear within normal limits without hydrocephalus stable in appearance. ORBITAL STRUCTURES: The visualized orbital structures are grossly unremarkable within the limitations of the study. VASCULAR: Signal voids are noted in the visualized major intracranial vessels. OSSEOUS STRUCTURES, SINUSES/MASTOIDS, EXTRACRANIAL SOFT TISSUES: Nasal septal deviation to the right stable in appearance with bilateral thickening of the nasal turbinates unchanged in appearance and milder mucosal thickening in the maxillary sinuses slightly improved. Minor mucosal thickening in the ethmoid complex is stable. Osseous marrow signal intensity appears within normal limits. Visualized extracranial soft tissue structures appear grossly unremarkable. MR/MR head/brain wo con IMPRESSION: 1. Chronic ischemic microangiopathy in the white matter of both cerebral hemispheres stable in appearance and a tiny remote deep white matter infarct in the right parietal white matter unchanged in appearance. No acute or subacute cerebral ischemia. 2. No evidence for hemorrhage, extra-axial fluid collection, space-occupying process, mass effect or hydrocephalus. 3. Sinonasal findings as discussed above.
== END 2022-01-02 14:52 | disposition home or self-care (01) ==
LOC: HO.MRI 14:51
PROVIDERS: Visit Provider Psychiatry & Neurology Neurology
DX: I67.89 Other cerebrovascular disease (principal); Z86.73 Personal history of transient ischemic attack (TIA), and cerebral infarction without residual deficits
CPT/HCPCS: 70551

== ENCOUNTER 2022-02-07 19:57 | Emergency (ER) | payer OTHER, SELFPAY ==
--- NOTE | ~2022-02-07 | CT_ITS ---
EXAMINATION: CT HEAD WITHOUT CONTRAST CLINICAL INFORMATION: Dizziness with waking COMPARISON: Brain MRI 01/02/2022 TECHNIQUE: Imaging was performed from the skull base to vertex without intravenous administration of contrast. This CT examination was performed using dose optimization techniques as appropriate, variously including the following: *Automated exposure control *Adjustment of mA and/or kV according to patient size (this includes techniques or standardized protocols for targeted exams where dose is matched to indication/reason for exam; i.e. extremities or head) *Use of iterative reconstruction technique Total exam dose length product: 608 mGy-cm FINDINGS: No intra or extra-axial fluid collection, hemorrhage, or mass. No ventriculomegaly. No midline shift or herniation. Basal cisterns are patent. Martinez-white matter differentiation is maintained. No territorial encephalomalacia. No significant volume loss. Patchy periventricular and deep white matter hypoattenuation is consistent with mild small vessel ischemic changes. No calvarial fracture or soft tissue abnormality. The mastoid air cells and visualized portions of the paranasal sinuses are well aerated. CT/CT head/brain wo con IMPRESSION: 1. No acute intracranial pathology. 2. Mild chronic small vessel ischemic white matter change.
[2022-02-07 19:59] VITALS: BP 182/102; PULSE 67; RESP 22; TEMP 36.8; O2SAT 99; BMI 30.2
--- NOTE | 2022-02-07 20:04 | ECG_ITS ---
Test Reason : DIZZINESS Blood Pressure : / mmHG Vent. Rate : 065 BPM Atrial Rate : 065 BPM P-R Int : 140 ms QRS Dur : 080 ms QT Int : 430 ms P-R-T Axes : 057 001 045 degrees QTc Int : 447 ms Normal sinus rhythm Minimal voltage criteria for LVH, may be normal variant ( R in aVL ) Borderline ECG When compared with ECG of 18-SEP-2020 06:08, No significant change was found Referred By: Generic ED Physician Electronically Signed By:PRANAV SUAREZ
--- NOTE | 2022-02-07 20:29 | ED_ITS ---
HPI - Dizziness General Chief Complaint: Dizziness Stated Complaint: dizziness ,high blood pressure Time Seen by Provider: 02/07/22 20:13 Source: patient Mode of arrival: wheelchair Limitations: no limitations History of Present Illness HPI Narrative: 56-year-old male with a history of high blood pressure, high cholesterol, previous stroke presents with reports of ongoing right ear tinnitus for 2 months now (w/ brain mri that shows chronic ischemic microangiopathy in the white matter of both cerebral hemispheres stable in appearance and a tiny remote deep white matter infarct in the right parietal white matter unchanged in appearance otherwise negative).with dizziness with waking today at 07:00. Patient describes the dizziness as feeling like he is spinning. Patient has associated nausea. No vision changes, headache, neck pain, chest pain, shortness of breath, weakness or numbness or tingling of the extremities. Patient reports difficulty with ambulating to dizziness. He went to bed before midnight and felt normal then. Related Data Home Medications Medication Instructions Recorded Confirmed aspirin 81 mg tablet,delayed 81 mg PO DAILY 05/09/20 09/28/21 release (Adult Low Dose Aspirin) Previous Rx's Medication Instructions Recorded pravastatin 20 mg tablet 20 mg PO DAILY #90 tabs 05/14/21 lisinopril 40 mg tablet 40 mg PO DAILY 90 days #90 tabs 09/28/21 amlodipine 5 mg tablet 5 mg PO DAILY #30 tabs 02/07/22 diazepam 2 mg tablet (Valium) 2 mg PO TID PRN dizziness or 02/07/22 vertigo #8 tabs Allergies Allergy/AdvReac Type Severity Reaction Status Date / Time No Known Allergies Allergy Verified 12/05/21 16:02 [No Known Allergies*] Review of Systems Review of Systems: Yes all other systems are reviewed and are negative Constitutional: Constitutional: Reports no additional constitutional complaints, Denies body ache(s), Denies chills, Denies fever(s), Denies headache(s) and Denies weakness Eyes: Eyes: Reports no additional eye complaints and Denies change in vision ENT: Reports system reviewed and no additional complaints, except as documented, Reports dizziness, Denies headache(s), Denies nasal congestion, Denies nasal discharge, Denies neck pain and Reports tinnitus Cardiovascular: Cardiovascular: Reports no additional cardiovascular complaints, Denies chest pain, Denies leg edema and Denies dyspnea Respiratory: Respiratory: Reports no additional respiratory complaints, Denies cough and Denies dyspnea Gastrointestinal: Gastrointestinal: Reports no additional gastrointestinal complaints, Denies abdominal pain, Denies diarrhea, Denies nausea and Denies vomiting Genitourinary: Genitourinary: Denies urinary incontinence Musculoskeletal: Musculoskeletal: Reports no additional musculoskeletal complaints, Denies back pain, Denies arthralgias, Denies joint swelling, Denies neck pain, Denies numbness and Denies tingling Integumentary/Breasts: Skin/Breast: Reports system reviewed and no additional complaints, except as docu and Denies rash Neurologic: Reports system reviewed and no additional complaints, except as documented, Denies Abnormal speech present, Reports dizziness, Denies headache(s), Denies numbness, Denies tingling and Denies weakness PMFSH Past Medical History Attestation statement: The following information was validated with the patient. Source: old records reviewed and nursing notes reviewed Medical History Benign essential hypertension Chronic kidney disease (CKD), stage III (moderate) GERD without esophagitis Overweight (BMI 25.0-29.9) Pure hypercholesterolemia RUQ pain Tinnitus of right ear Surgical History Hx laparoscopic cholecystectomy (~11/2020) No pertinent past surgical history Family History Family History Father No problems noted. Mother Breast cancer Maternal Grandmother Breast cancer Social History Social History Household Members: Spouse Housing: House Alcohol intake: current Alcohol intake frequency: holidays/special occasions only Patient Tobacco Use Status: Never used Tobacco Second Hand Smoke Exposure: Yes Advance Directives: No Advance Directives Information Provided: No service: No Current occupational status: unemployed Cognitive needs: No Hearing needs: No Vision needs: No Physical Exam Vital Signs: Vital Signs: Last Vital Signs Temp 98.2 F 02/07/22 19:59 Pulse 68 02/07/22 23:05 Resp 22 H 02/07/22 19:59 BP 200/119 H 02/07/22 23:50 Pulse Ox 99 02/07/22 19:59 O2 Del Method 02/07/22 19:59 BMI result Body Mass Index 30.2 Const: General: cooperative, healthy appearing, comfortable and no acute distress Orientation/consciousness: patient oriented x3 Limitations: no limitations HEENT: Head: Yes normal to inspection Ears: hearing grossly normal bilate rally and TM's normal bilaterally General nose exam: Normal external nose present Face and sinus: Yes normal facial exam Mouth: Normal oral and palatal mucosa present Throat: Yes posterior oropharynx normal Eyes: General: appearance normal, both eyes and all related structures Pupils: Equal, round and reactive pupils present EOM: Nystagmus present Neck: Neck: Yes normal visual inspection Chest: Chest palpation & inspection: normal inspection of the chest Resp: Effort & Inspection: normal respiratory effort Auscultation: clear to auscultation bilaterally Cardio: Rate: regular rate Rhythm: regular rhythm Peripheral pulses: Peripheral pulses 2+ throughout GI: Inspection: Yes normal to inspection Palpation (GI): Soft to palpation and nontender Auscultation: normal bowel sounds Back/Spine/Pelvis: Thoracic/Lumbar Spine: thoracic and lumbar spine normal to inspection Skin: General skin exam: no rashes or lesions noted Neuro: General: patient oriented x3, no focal motor deficits and normal sensation to monofilament Cranial nerves: Yes CN's II-XII intact bilaterally, Yes Equal, round and reactive pupils present, Yes Bilaterally intact EOM present, Yes Normal facial strength present, Yes Midline tongue present and Yes Nystagmus present Cognition (Neuro): normal cognition Speech: No Abnormal speech present Gait exam (Neuro): Normal gait present Motor exam (neuro): 5/5 motor strength present throughout Sensory Exam: Normal double simultaneous stimulation for sensation Coordination: [id number] test normal, [id number] test normal and tandem gait normal Extrem: General: Yes normal to inspection NIH Stroke Scale Internal: Initial- Upon Arrival Level of Consciousness: Alert Level of Consciousness Questions: Answers both questions correctly Level of Consciousness Commands: Performs both tasks correctly Best Gaze: Normal Visual: No visual loss Facial Palsy: Normal Motor Arm (Right): No drift Motor Arm (Left): No drift Motor Leg (Right): No drift Motor Leg (Left): No drift Limb Ataxia: Absent Sensory: Normal Best Language: No aphasia Dysarthia: Normal Extinction and Inattention: No abnormality Score: 0 Course Course Course Narrative: Initial labs and CT scan of the head are negative. Patient reports continued dizziness. Will try Valium and reassess Reevaluation(s) Reevaluation #1: 2300-after Valium the patient feels much better. He was able to ambulate independently down the clark to the bathroom with a steady gait. No ataxia seen. His blood pressure is still mildly elevated. He does take lisinopril 40 mg daily. He was also taking amlodipine 5 mg but this was discontinued by his primary care doctor several months ago when he had some lower blood pressure readings. He has been checking his blood pressure at home intermittently over t he last few weeks and he notices been running high. Therefore we will give him amlodipine Reevaluation #2: 0100-Blood pressure 180/100 post norvasc. Patient feels well. He can monitor blood pressures at home and follow with his PCP for med adjustments as needed. I am starting him on low dose norvasc in the meantime. Reviewed worrisome signs and symptoms of when to return to the emergency department. Comfortable discharge home. MDM - Dizziness MDM Narrative Medical decision making narrative: 56-year-old male with a history of stroke, high blood pressure, high cholesterol presents with waking with dizziness at 07:00. Last known normal was yesterday before midnight. On arrival patient is alert and oriented. He has no focal neurological findings. Unable to ambulate him however due to his dizziness. Consider vertigo also cerebellar infarct. Patient is not a tPA candidate due to onset of symptoms. Will obtain labs, EKG, CT head -less likely cerebellar infarct with normal cerebellar exam and a steady gait with no signs of ataxia Medical Records Attestation: I reviewed the patient's medical records. Lab Data Attestation: I reviewed the patient's lab results. Result diagrams: 02/07/22 20:39 02/07/22 20:39 Labs: Lab Results 02/07/22 02/07/22 02/07/22 Range/Units 20:39 20:39 20:39 WBC 9.4 (4.8-10.8) X10*3/uL RBC 5.44 (4.60-5.80) X10*6/uL Hgb 15.6 (14.0-18.0) g/dl Hct 45.5 (42.0-52.0) % MCV 83.6 (80.0-98.0) fL MCH 28.7 (27.0-33.0) pg MCHC 34.3 (31.0-36.0) g/dl RDW 12.8 (11.0-16.0) % Plt Count 274 (160-400) X10*3/uL MPV 10.2 (9.4-12.4) fL Immature Gran % (Auto) 0.3 (0.0-0.4) % Neut % (Auto) 66.8 (45-73) % Lymph % (Auto) 24.2 (20-40) % Charlton % (Auto) 6.2 (2-11) % Eos % (Auto) 1.6 (0-4) % Baso % (Auto) 0.9 (0-2) % Lymph # (Auto) 2.3 (1.2-4.9) X10*3/uL Charlton # (Auto) 0.6 (0.1-1.2) X10*3/uL Eos # (Auto) 0.2 (0.0-0.4) X10*3/uL Baso # (Auto) 0.1 (0.0-0.2) X10*3/uL Abs Immat Gran (auto) 0.03 (0.00-0.03) X10*3/uL Absolute Neuts (auto) 6.3 (2.0-8.3) x10*3/uL Absolute Nucleated RBC 0.000 (0.0-0.012) X10*3/uL Nucleated RBC % (auto) 0.0 (0.0-0.2) /100WBC PT 11.5 (10.0-13.1) SEC INR 1.0 (0.9-1.1) Sodium 139 (135-145) mmol/L Potassium 3.4 (3.3-5.1) mmol/L Chloride 102 (96-108) mmol/L Carbon Dioxide 25 (22-29) mmol/L Anion Gap 15 (12-20) BUN 19 H (9-16) mg/dL Creatinine 1.11 (0.5-1.4) mg/dL Estim Creat Clear Calc 83.6 Estimated GFR > 60 Random Glucose 102 D (60-115) mg/dL Calcium 9.2 D (8.4-10.2) mg/dL Magnesium 1.9 (1.6-2.6) mg/dL Total Bilirubin 1.1 H (0.0-1.0) mg/dL Direct Bilirubin 0.4 (0.0-0.5) mg/dL AST 21 (5-37) U/L ALT 23 (0-40) U/L Alkaline Phosphatase 68 (39-117) U/L Troponin I High Sens (<3.5-35.0) ng/L Total Protein 7.2 (6.5-8.0) g/dL Albumin 4.2 (3.5-5.0) g/dL 02/07/22 02/07/22 Range/Units 20:39 20:39 WBC (4.8-10.8) X10*3/uL RBC (4.60-5.80) X10*6/uL Hgb (14.0-18.0) g/dl Hct (42.0-52.0) % MCV (80.0-98.0) fL MCH (27.0-33.0) pg MCHC (31.0-36.0) g/dl RDW (11.0-16.0) % Plt Count (160-400) X10*3/uL MPV (9.4-12.4) fL Immature Gran % (Auto) (0.0-0.4) % Neut % (Auto) (45-73) % Lymph % (Auto) (20-40) % Charlton % (Auto) (2-11) % Eos % (Auto) (0-4) % Baso % (Auto) (0-2) % Lymph # (Auto) (1.2-4.9) X10*3/uL Charlton # (Auto) (0.1-1.2) X10*3/uL Eos # (Auto) (0.0-0.4) X10*3/uL Baso # (Auto) (0.0-0.2) X10*3/uL Abs Immat Gran (auto) (0.00-0.03) X10*3/uL Absolute Neuts (auto) (2.0-8.3) x10*3/uL Absolute Nucleated RBC (0.0-0.012) X10*3/uL Nucleated RBC % (auto) (0.0-0.2) /100WBC PT (10.0-13.1) SEC INR (0.9-1.1) Sodium (135-145) mmol/L Potassium (3.3-5.1) mmol/L Chloride (96-108) mmol/L Carbon Dioxide (22-29) mmol/L Anion Gap (12-20) BUN (9-16) mg/dL Creatinine (0.5-1.4) mg/dL Estim Creat Clear Calc Estimated GFR Random Glucose (60-115) mg/dL Calcium (8.4-10.2) mg/dL Magnesium Cancelled (1.6-2.6) mg/dL Total Bilirubin Cancelled (0.0-1.0) mg/dL Direct Bilirubin Cancelled (0.0-0.5) mg/dL AST Cancelled (5-37) U/L ALT Cancelled (0-40) U/L Alkaline Phosphatase Cancelled (39-117) U/L Troponin I High Sens 5.4 (<3.5-35.0) ng/L Total Protein Cancelled (6.5-8.0) g/dL Albumin Cancelled (3.5-5.0) g/dL Imaging Data CT scan - head: Attestation: I personally reviewed and interpreted this imaging study as follows: Radiologist's impression: Launch?Image [place] [id number] CT Scan Report Signed Patient: Dorian Blood MR#: [id number] : 1965 Acct:[id number] Age/Sex: 56 / M ADM Date: 02/07/22 Loc: HO.ED Attending Dr: Ordering Physician: Rosario Dumont NP Date of Service: 02/07/22 Procedure(s): CT head/brain wo con Accession Number(s): [id number] cc: Rosario Dumont NP~ EXAMINATION: CT HEAD WITHOUT CONTRAST CLINICAL INFORMATION: Dizziness with waking? COMPARISON: Brain MRI 01/02/2022 TECHNIQUE: Imaging was performed from the skull base to vertex without intravenous administration of contrast. This CT examination was performed using dose optimization techniques as appropriate, variously including the following: *Automated exposure control *Adjustment of mA and/or kV according to patient size (this includes techniques or standardized protocols for targeted exams where dose is matched to indication/reason for exam; i.e. extremities or head) *Use of iterative reconstruction technique Total exam dose length product: 608 mGy-cm FINDINGS: No intra or extra-axial fluid collection, hemorrhage, or mass. No ventriculomegaly. No midline shift or herniation. Basal cisterns are patent. Martinez-white matter differentiation is maintained. No territorial encephalomalacia. ?No significant volume loss. Patchy periventricular and deep white matter hypoattenuation is consistent with mild small vessel ischemic changes. No calvarial fracture or soft tissue abnormality.? The mastoid air cells and visualized portions of the paranasal sinuses are well aerated. CT/CT head/brain wo con IMPRESSION: 1. No acute intracranial pathology. 2. Mild chronic small vessel ischemic white matter change. ? ECG Data Attestation: I personally reviewed and interpreted this ECG as follows: ECG interpretation date: 02/07/22 ECG interpretation time: 19:56 Interpretation: Normal sinus rhythm with a rate of 65, normal GA, normal QRS, normal QT Discharge Plan Discharge Clinical Impression: Tinnitus of right ear, Vertigo, Hypertension Patient Disposition: Home, Self-Care Instructions: Vertigo (ED), Chronic Hypertension (ED), Tinnitus (ED) Additional Instructions: Your blood work looks okay. Your CT scan shows no acute finding. We are starting you on an additional blood pressure medication. Take this with your other medications. Monitor your blood pressure at home. Follow-up with your primary care doctor in a week for recheck of your blood pressure. They may need to continue to adjust her medication for good blood pressure control. We are also giving a medication for the vertigo called Valium. This can make you feel sedated. Do not take it if driving or operating machinery Prescriptions: New amlodipine 5 mg tablet 5 mg PO DAILY Qty: 30 0RF diazepam [Valium] 2 mg tablet 2 mg PO TID PRN (Reason: dizziness or vertigo) Qty: 8 0RF No Action pravastatin 20 mg tablet 20 mg PO DAILY Qty: 90 3RF aspirin [Adult Low Dose Aspirin] 81 mg tablet,delayed release (DR/EC) 81 mg PO DAILY lisinopril 40 mg tablet 40 mg PO DAILY 90 Days Qty: 90 1RF Referrals: Schuyler Curiel MD [Primary Care Provider] - 1 week
[2022-02-07] MEDS: Meclizine HCl 25 MG TABLET 50 MG PO (20:41)
[2022-02-07 20:49] LABS: MANUAL DIFF FLAG NO
[2022-02-07 20:57] LABS: Basophils Absolute Auto 0.1 X10*3/uL (0.0-0.2); Basophils Percent Auto 0.9 % (0-2); Eosinophils Absolute Auto 0.2 X10*3/uL (0.0-0.4); Eosinophils Percent Auto 1.6 % (0-4); Hematocrit 45.5 % (42.0-52.0); Hemoglobin 15.6 g/dl (14.0-18.0); Imm Gran Abs Auto 0.03 X10*3/uL (0.00-0.03); Imm Gran Pct Auto 0.3 % (0.0-0.4); Lymphocytes Absolute Auto 2.3 X10*3/uL (1.2-4.9); Lymphocytes Percent Auto 24.2 % (20-40); Mean Corpuscular HGB Conc 34.3 g/dl (31.0-36.0); Mean Corpuscular Hemoglobin 28.7 pg (27.0-33.0); Mean Corpuscular Volume 83.6 fL (80.0-98.0); Mean Platelet Volume 10.2 fL (9.4-12.4); Monocytes Absolute Auto 0.6 X10*3/uL (0.1-1.2); Monocytes Percent Auto 6.2 % (2-11); Neutrophils Absolute Auto 6.3 x10*3/uL (2.0-8.3); Neutrophils Percent Auto 66.8 % (45-73); Platelet Count 274 X10*3/uL (160-400); Prothrombin Time 11.5 SEC (10.0-13.1); Red Blood Count 5.44 X10*6/uL (4.60-5.80); Red Cell Distribution Width 12.8 % (11.0-16.0); White Blood Count 9.4 X10*3/uL (4.8-10.8)
[2022-02-07 21:09] LABS: Alanine Aminotransferase 23 U/L (0-40); Albumin Level 4.2 g/dL (3.5-5.0); Alkaline Phosphatase 68 U/L (39-117); Anion Gap 15 (12-20); Aspartate Amino Transferase 21 U/L (5-37); Bilirubin Direct 0.4 mg/dL (0.0-0.5); Bilirubin Total 1.1 mg/dL (0.0-1.0); Blood Urea Nitrogen 19 mg/dL (9-16); Calcium 9.2 mg/dL (8.4-10.2); Carbon Dioxide 25 mmol/L (22-29); Chloride 102 mmol/L (96-108); Creatinine Clr Calc Pharmacy 83.6; Estimated Glomerular Filt Rate > 60; Glucose Random 102 mg/dL (60-115); Magnesium 1.9 mg/dL (1.6-2.6); Potassium 3.4 mmol/L (3.3-5.1); Sodium 139 mmol/L (135-145); Total Protein 7.2 g/dL (6.5-8.0); Troponin-I High Sensitivity 5.4 ng/L (<3.5-35.0)
[2022-02-07] MEDS: diazePAM 2 MG TABLET 4 MG PO (22:07)
[2022-02-07 23:04] VITALS: BP 190/100; PULSE 68
[2022-02-07 23:05] VITALS: BP 200/102; PULSE 68
[2022-02-07] MEDS: amLODIPine Besylate 5 MG TABLET PO (23:34)
[2022-02-07 23:50] VITALS: BP 200/119
[2022-02-08] MEDS: amLODIPine Besylate 5 MG TABLET PO (00:12)
[2022-02-08 01:35] VITALS: BP 188/103; PULSE 66; O2SAT 99
== END 2022-02-08 01:36 | disposition home or self-care (01) ==
PROVIDERS: Nurse Practitioner Family; Emergency Provider Internal Medicine; PCP Internal Medicine
DX: H93.11 Tinnitus, right ear (principal); R42 Dizziness and giddiness; I12.9 Hypertensive chronic kidney disease with stage 1 through stage 4 chronic kidney disease, or unspecified chronic kidney disease; N18.9 Chronic kidney disease, unspecified; E78.00 Pure hypercholesterolemia, unspecified; Z79.82 Long term (current) use of aspirin; Z79.02 Long term (current) use of antithrombotics/antiplatelets; Z79.899 Other long term (current) drug therapy
CPT/HCPCS: 36415; 70450; 80048; 80076; 83735; 84484; 85025; 85610; 93005; 99284; 99285

== ENCOUNTER 2022-05-08 10:00 | Outpatient (RCR) | payer OTHER, SELFPAY ==
[2022-03-27 08:06] VITALS: BP 133/78; PULSE 70
--- NOTE | 2022-03-27 11:11 | MHC.PT.EP ---
[facility] [place] [facility] [place] Office [place] Office [address] [place] [address] Dr Chuckie Quiñones [address] [phone] F: [phone] F: [phone] F: [phone] F: [phone] Physical Therapy Plan of Care Date of Evaluation: Date of Surgery: Diagnosis: dizziness and giddiness Assessment: 56 y/o male referred to PT with dizziness. He presents with R tinnitus and decreased hearing R ear. His dizziness has resolved but when he was dizziness, described as room-spinning that can last all day. Currently he feels lightheaded with positional changes. Of note, he has PMH significant for HTN and CVA 2012. Examination shows normal oculomotor examination, negative VBI, normal static balance, 22/24 DGI with impairment in horizontal head turns, and (-) for BPPV. He may have a mild unilateral hypofunction therefore distributed HEP of static balance with head turns and walking with head turns with review of safety and self progression. He will trial HEP for hypofunction and will keep chart open for 30 days in case of recurrence of BPPV like sx. 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 Manual therapy to restore motion and function. Therapeutic exercise to improve strength and flexibility. Neuromuscular re-education for posture and balance. Therapeutic activities to return to functional activities of daily living. Electronically signed by: Lexy Salazar PT Please sign and return to therapist. Thank you for your referral.
--- NOTE | 2022-05-08 10:51 | MHC.PT.DC ---
[facility] [place] Office [place] Office [place] Office [address] Chuckie Quiñones [address] [phone] F: [phone] F: [phone] F: [phone] F: [phone] Physical Therapy Discharge Report Diagnosis: dizziness and giddiness Date of Surgery: Date of Evaluation: 03/27/22 Date of Discharge: 05/08/22 Treatments to Date: 5 Cancellations to Date: 0 No Shows to Date: 0 Discharge Status: Improved Function Independent with HEP Discharge Summary: He continues with intermittent R tinnitus but has not had any dizziness episods in a few weeks. We reviewed HEP and he is appropriate for d/c . NO further questions. Electronically signed by: Lexy Salazar PT Please sign and return to therapist. Thank you for your referral.
== END 2022-05-08 10:52 | disposition home or self-care (01) ==
LOC: HO.PT 10:00
PROVIDERS: PCP Internal Medicine; Visit Provider Internal Medicine
DX: R42 Dizziness and giddiness (principal)
CPT/HCPCS: 97112; 97161

== ENCOUNTER 2022-07-26 07:13 | Outpatient (REF) | payer OTHER, SELFPAY ==
[2022-07-26 07:23] LABS: MANUAL DIFF FLAG NO
[2022-07-26 07:28] LABS: Basophils Absolute Auto 0.1 X10*3/uL (0.0-0.2); Basophils Percent Auto 1.3 % (0-2); Eosinophils Absolute Auto 0.4 X10*3/uL (0.0-0.4); Eosinophils Percent Auto 5.1 % (0-4); Hematocrit 45.7 % (42.0-52.0); Imm Gran Abs Auto 0.02 X10*3/uL (0.00-0.03); Imm Gran Pct Auto 0.3 % (0.0-0.4); Lymphocytes Absolute Auto 2.7 X10*3/uL (1.2-4.9); Lymphocytes Percent Auto 34.2 % (20-40); Mean Corpuscular HGB Conc 32.8 g/dl (31.0-36.0); Mean Corpuscular Hemoglobin 27.9 pg (27.0-33.0); Mean Corpuscular Volume 85.1 fL (80.0-98.0); Mean Platelet Volume 9.8 fL (9.4-12.4); Monocytes Absolute Auto 0.6 X10*3/uL (0.1-1.2); Monocytes Percent Auto 7.5 % (2-11); Neutrophils Absolute Auto 4.1 x10*3/uL (2.0-8.3); Neutrophils Percent Auto 51.6 % (45-73); Platelet Count 240 X10*3/uL (160-400); Red Blood Count 5.37 X10*6/uL (4.60-5.80); Red Cell Distribution Width 11.9 % (11.0-16.0); White Blood Count 7.9 X10*3/uL (4.8-10.8)
[2022-07-26 08:03] LABS: Alanine Aminotransferase 23 U/L (0-40); Albumin Level 4.3 g/dL (3.5-5.0); Alkaline Phosphatase 76 U/L (39-117); Anion Gap 13 (12-20); Aspartate Amino Transferase 19 U/L (5-37); Bilirubin Total 0.7 mg/dL (0.0-1.0); Blood Urea Nitrogen 22 mg/dL (9-16); Calcium 9.6 mg/dL (8.4-10.2); Carbon Dioxide 28 mmol/L (22-29); Chloride 106 mmol/L (96-108); Cholesterol 146 mg/dL; Estimated Glomerular Filt Rate 51; Glucose Fasting 100 mg/dL (60-99); HDL Cholesterol 36 mg/dL; LDL Cholesterol Calculated 95 mg/dl; Potassium 4.4 mmol/L (3.3-5.1); Sodium 143 mmol/L (135-145); Total Protein 7.2 g/dL (6.5-8.0); Triglycerides 79 mg/dL
[2022-07-26 08:20] LABS: Vitamin D 25-OH Total 16.6 ng/mL (>30)
== END 2022-07-26 07:14 | disposition home or self-care (01) ==
LOC: HO.LAB 07:13
PROVIDERS: PCP Internal Medicine; Visit Provider Internal Medicine
DX: I10 Essential (primary) hypertension (principal); E78.00 Pure hypercholesterolemia, unspecified; E55.9 Vitamin D deficiency, unspecified
CPT/HCPCS: 36415; 80053; 80061; 82306; 85025

== ENCOUNTER 2022-07-29 11:01 | Outpatient (REF) | payer OTHER, SELFPAY ==
[2022-07-29 11:12] LABS: Appearance Urine Clear; Color Urine Yellow; Glucose Urine UA Negative (Negative); Leukocyte Esterase Urine Negative (Negative); Nitrite Urine Negative (Negative); PH 5.5 (5.0-9.0); Specific Gravity - Urine 1.025 (1.005-1.025); Urine Blood Negative (Negative); Urine Ketones Negative (Negative); Urine Protein Negative (Neg-Trace)
== END 2022-07-29 11:02 | disposition home or self-care (01) ==
LOC: HO.LNP 11:01
PROVIDERS: Visit Provider Internal Medicine
DX: I10 Essential (primary) hypertension (principal)
CPT/HCPCS: 81003

== ENCOUNTER → 2022-08-08 07:48 | Outpatient (REF) | payer OTHER, SELFPAY ==
--- NOTE | 2022-08-08 07:56 | CA_ITS ---
Transthoracic Echocardiogram Patient (Last, First, Middle): Dorian Blood J Gender: Male Date of : 1965 Age: 57 Procedure Date: 08/08/2022 Procedure Type: Transthoracic Echocardiogram Location: OP Height: 175.26 cm Weight: 92.53 kg BSA: 2.08 m2 Heart Rate: 63 bpm BP: 124 / 80 mmHg Hospitality Associate: ALVARADO Referring MD: Schuyler Curiel MD Lab Intern: Duke Alcazar MD Symptoms: R06.00 - Dyspnea, unspecified Study Quality: Adequate w contrast ECG Rhythm: Sinus Conclusions: - 1. Normal LV systolic function with normal diastolic filling pattern with mild asymmetric septal hypertrophy 2. Normal cardiac valvular Doppler 3. No gross pericardial effusion Findings Procedure Information Contrast agent, definity, is being given per protocol without apparent complications. Left Ventricle Normal left ventricular size, thickness, and systolic function. The visually estimated ejection fraction is between 55-60%. Spectral Doppler is indicative of a normal filling pattern. There is mild septal asymmetric hypertrophy. Right Ventricle Normal right ventricular cavity size and systolic function. Atria The left atrium is likely dilated. Interatrial shunt cannot be excluded. The right atrium is normal in size. Aortic Valve Normal aortic valve structure and function. There is no aortic valve stenosis. There is no aortic valve regurgitation. Mitral Valve Normal mitral valve structure and function. There is trace mitral valve regurgitation. There is no mitral valve stenosis. Pulmonic Valve The pulmonic valve was not well visualized. Tricuspid Valve Likely normal tricuspid valve structure and function. There is trace tricuspid valve regurgitation. Tricuspid regurgitation envelope is inadequate for calculation of right ventricular systolic pressure. Normal right atrial pressure. Great Vessels All visible segments of the aorta are normal in size. The pulmonary artery was not well visualized. Venous The inferior vena cava is normal in size and collapses greater than 50% with inspiration. Pericardium/Pleural There is no evidence of pericardial effusion. Prior Study Comparison No prior study available for comparison. Measurements 2D Linear Measurements IVSd: 1.66 0.6-0.9/0.6-1.0 cm LVIDd: 4.56 3.9-5.3/4.2-5.9 cm LVIDd Index: 2.19 2.4-3.2/2.2-3.1 cm/m2 LVIDs: 2.95 2.0-3.6 cm LVPWd: 0.77 0.7-1.1 cm LA Diam: 4.20 2.7-3.8/3.0-4.0 cm LAIDs Index: 2.02 1.5-2.3 cm/m2 LV Mass: 256.28 67-162/88-224 g LV Mass Index: 123.21 43-95/49-115 g/m2 LVOT Diam: 2.20 3.0+(-)1.3 cm 2D Systolic Function EF 4C: 54.00 >55% EF 2C: 59.50 >55% EF BiP: 57.10 >55% Mitral Valve MV Pk E: 0.72 MV PK A: 0.56 MV Decel Time: 208.00 E/A: 1.30 E'Lateral: 8.70 E'Medial: 6.96 E/E' Med: 10.40 E/E' Lat: 8.30 PHT: 61.00 MVA PHT: 3.61 Decel Whiteside: 3.48 Aortic Valve AoV Pk Steve: 1.92 AoV Mn Steve: 1.29 AoV VTI: 0.37 AoV Pk Grad: 15.00 Aov Mn Grad: 8.00 DESHAWN Cont.VTI: 2.55 LVOT LVOT Pk Steve: 1.16 LVOT Mn Steve: 0.79 LVOT VTI: 0.25 LVOT Pk Grad: 5.00 LVOT Mn Grad: 3.00 LVOT Diam: 2.20 LVOT Area: 3.80 Diastolic Function MV Pk E: 0.72 MV Pk A: 0.56 E/A: 1.30 E'Medial: 6.96 E/E' Med: 10.40 E' Laterial: 8.70 E/E' Lat: 8.30 Right Ventricle TAPSE (mm): 20.30 TVS' Steve: 9.36 Tricuspid Valve RA Press: 3.00 Great Vessels Aorta Sinus of Valsalva: 3.70 2.0-3.5 cm Ao Asc: 3.60 2.1-3.4 cm Pulmonary Valve PV Pk Steve: 0.89 Peak PV Grad: 3.00 Updated in Other Vendor System with Status of Final Duke Alcazar MD electronically signed on 08/10/2022 1:25:29 PM with status of Final
== END ==
LOC: HO.CARD 07:48
PROVIDERS: PCP Internal Medicine; Visit Provider Internal Medicine
DX: R06.00 Dyspnea, unspecified (principal)
CPT/HCPCS: 93306; Q9957

== ENCOUNTER 2023-03-07 07:00 | Outpatient (REF) | payer OTHER, SELFPAY ==
[2023-03-07 07:16] LABS: MANUAL DIFF FLAG NO
[2023-03-07 07:19] LABS: Basophils Absolute Auto 0.1 X10*3/uL (0.0-0.2); Basophils Percent Auto 1.3 % (0-2); Eosinophils Absolute Auto 0.3 X10*3/uL (0.0-0.4); Eosinophils Percent Auto 3.3 % (0-4); Hematocrit 44.2 % (42.0-52.0); Hemoglobin 14.8 g/dl (14.0-18.0); Imm Gran Abs Auto 0.03 X10*3/uL (0.00-0.03); Imm Gran Pct Auto 0.4 % (0.0-0.4); Lymphocytes Absolute Auto 2.4 X10*3/uL (1.2-4.9); Lymphocytes Percent Auto 28.2 % (20-40); Mean Corpuscular HGB Conc 33.5 g/dl (31.0-36.0); Mean Corpuscular Hemoglobin 28.7 pg (27.0-33.0); Mean Corpuscular Volume 85.8 fL (80.0-98.0); Mean Platelet Volume 9.9 fL (9.4-12.4); Monocytes Absolute Auto 0.7 X10*3/uL (0.1-1.2); Monocytes Percent Auto 7.6 % (2-11); Neutrophils Percent Auto 59.2 % (45-73); Platelet Count 278 X10*3/uL (160-400); Red Blood Count 5.15 X10*6/uL (4.60-5.80); Red Cell Distribution Width 13.1 % (11.0-16.0); White Blood Count 8.5 X10*3/uL (4.8-10.8)
[2023-03-07 07:44] LABS: Alanine Aminotransferase 21 U/L (0-40); Albumin Level 4.2 g/dL (3.5-5.0); Alkaline Phosphatase 69 U/L (39-117); Anion Gap 12 (12-20); Aspartate Amino Transferase 20 U/L (5-37); Bilirubin Total 0.6 mg/dL (0.0-1.0); Blood Urea Nitrogen 34 mg/dL (9-16); Calcium 9.7 mg/dL (8.4-10.2); Carbon Dioxide 27 mmol/L (22-29); Chloride 106 mmol/L (96-108); Cholesterol 196 mg/dL (<200); Estimated Glomerular Filt Rate 54; Glucose Fasting 106 mg/dL (60-99); HDL Cholesterol 48 mg/dL (>40); LDL Cholesterol Calculated 134 mg/dL (<100); Potassium 4.5 mmol/L (3.3-5.1); Sodium 140 mmol/L (135-145); Total Protein 7.1 g/dL (6.5-8.0); Triglycerides 72 mg/dL (<150)
[2023-03-07 08:00] LABS: TSH reflex Free T4 2.28 uIU/mL (0.32-4.0); Vitamin D 25-OH Total 51.1 ng/mL (>30)
[2023-03-07 09:43] LABS: Appearance Urine Clear; Color Urine Yellow; Glucose Urine UA Negative (Negative); Leukocyte Esterase Urine Negative (Negative); Nitrite Urine Negative (Negative); PH 5.5 (5.0-9.0); Urine Blood Negative (Negative); Urine Ketones Negative (Negative); Urine Protein Negative (Neg-Trace)
== END 2023-03-07 07:01 | disposition home or self-care (01) ==
LOC: HO.LAB 07:00
PROVIDERS: PCP Internal Medicine; Visit Provider Internal Medicine
DX: E78.00 Pure hypercholesterolemia, unspecified (principal); E55.9 Vitamin D deficiency, unspecified; R30.0 Dysuria; I10 Essential (primary) hypertension
CPT/HCPCS: 36415; 80053; 80061; 81003; 82306; 84443; 85025

== ENCOUNTER 2023-03-11 13:21 | Outpatient (AMB) | payer OTHER, SELFPAY ==
--- NOTE | 2023-03-11 13:23 | MHC.PC.OV ---
Vital Signs 03/11/23 13:24 Height 5 ft 9 in Weight 201 lb BMI 29.7 BP 120/76 Blood Pressure Location Lt brachial Position Sitting Intake Visit Reasons: hyperlipidemia Fueler Required: No Accompanied by: Self / Same As Patient Allergies No Known Allergies [No Known Allergies*] Allergy (Verified 03/11/23 15:46) Medication List - Last Reconciled 03/11/23 by Schuyler Curiel MD amlodipine 5 mg PO DAILY aspirin (Adult Low Dose Aspirin) 81 mg PO DAILY cholecalciferol (vitamin D3) 50 mcg PO DAILY 90 days lisinopril 40 mg PO DAILY 90 days meclizine 25 mg PO TID PRN 30 days pravastatin 20 mg PO DAILY Tobacco use date assessed: 11/01/22 Dental Screening Dental Screen Date: 03/11/23 Did you have a dental visit in the last 12 months?: No Did you have a dental problem in the last 6 months where you did not have access to dental care?: No Was dental information given to patient?: Patient has dentist HPI hyperlipidemia HPI Details Patient comes in today for his follow up visit States that he feels okay He denies any headaches or dizziness but he continues to experience a recurrent ringing sensation in his right ear; denies any ear pain Denies any chest pains, no SOB No nausea/vomiting, no abdominal pain No change in bowel habits noted Had his follow up labs done a few days ago - to discuss his results [facility] Medical History Obesity (BMI 30-39.9) Vitamin D deficiency GERD without esophagitis RUQ pain Tinnitus of right ear Overweight (BMI 25.0-29.9) Chronic kidney disease (CKD), stage III (moderate) Pure hypercholesterolemia Benign essential hypertension Surgical History Hx laparoscopic cholecystectomy (~11/2020) No pertinent past surgical history Family History Father No problems noted. Mother Breast cancer Maternal Grandmother Breast cancer Social History Household Members: Spouse Housing: House Alcohol intake: current Alcohol intake frequency: holidays/special occasions only Patient Tobacco Use Status: Never used Tobacco e-Cigarette/Vaping Use: Never Used Second Hand Smoke Exposure: Yes service: No Current occupational status: unemployed Cognitive needs: No Hearing needs: No Vision needs: No Questionnaire Thrive Questionnaire Date Thrive assessed: 11/01/22 RAYMOND-7 AMB Questionnaire RAYMOND-7 Date RAYMOND - 7 assessed: 11/01/22 Source: Developed by Drs. Tino Larsen, Jada Temple, Arsenio Wahl and colleagues, with an educational isiah from [employer]. Review of Systems Const Denies chills, Denies fatigue, Denies fever(s) and Denies headache(s) ENT Denies dysphagia, Denies dizziness, Denies otalgia, Denies headache(s), Reports hearing loss (bilateral), Denies odynophagia, Reports tinnitus (on and off, in the right ear), Denies sinus pain and Denies sore throat Card Denies chest pain, Denies palpitations and Denies dyspnea Resp Denies cough and Denies dyspnea GI Denies abdominal pain, Denies constipation, Denies dysphagia, Denies heartburn, Denies diarrhea, Denies nausea, Denies odynophagia and Denies vomiting Denies dysuria, Denies nocturia and Denies urinary frequency Musc Reports numbness (on and off in the right hand) and Reports tingling (on and off in the right hand) Neuro Denies dizziness, Denies headache(s), Reports numbness (on and off in the right hand) and Reports tingling (on and off in the right hand) Endo Denies fatigue and Denies palpitations Physical exam (Primary Care) Vital Signs: Last Vital Signs BP 120/76 03/11/23 13:24 BMI result Body Mass Index 29.7 Tobacco/Smoking Status: Tobacco use Status Tobacco use date assessed 11/01/22 03/11/23 13:27 Patient Tobacco Use Status Never used Tobacco 03/11/23 13:27 e-Cigarette/Vaping Use Never Used 03/11/23 13:27 Thrive Assessment: Date of Thrive Assessment Date Thrive assessed 11/01/22 03/11/23 13:27 Const General: no acute distress and alert HENMT Ears: TM's normal bilaterally and EAC's normal Throat: Yes posterior oropharynx normal and Yes tonsils normal (no TP congestion noted) Neck Neck: Yes no lymphadenopathy and Yes supple Resp Auscultation: clear to auscultation bilaterally, no rales and no wheezes Cardio Rate: regular rate Rhythm: regular rhythm Heart sounds: no murmurs GI Palpation (GI): Soft to palpation and nontender Auscultation: normal bowel sounds Skin Rashes: no rashes Extrem General: Yes no clubbing, cyanosis or edema Assessment and Plan Assessment & Plan (1) Benign essential hypertension: Code(s): I10 - Essential (primary) hypertension Plan: Reinforced low sodium diet - goal is systolic BP of 120 mm or less Continue Lisinopril 40 mg QD and Amlodipine 5 mg QD; HCTZ was previously discontinued Patient is reminded to continue monitoring his BP closely (2) Pure hypercholesterolemia: Code(s): E78.00 - Pure hypercholesterolemia, unspecified Plan: Results of his labs done a few days ago reviewed and discussed with patient Reinforced low cholesterol diet Continue Pravastatin 20 mg QD Will recheck his labs and fasting lipids again in 4 months for follow up (3) Chronic kidney disease (CKD), stage III (moderate): Code(s): N18.30 - Chronic kidney disease, stage 3 unspecified Qualifiers: Chronic kidney disease stage 3 subtype: stage 3a (GFR 45-59) Qualified Code(s): N18.31 - Chronic kidney disease, stage 3a Plan: Renal function appears stable on his most recent labs from a few weeks ago Will continue to monitor his renal function regularly (4) Vitamin D deficiency: Code(s): E55.9 - Vitamin D deficiency, unspecified Plan: Continue Vitamin D3 2000 units QD (5) Dizziness: Code(s): R42 - Dizziness and giddiness Plan: MRI and CT of the brain done last year both did NOT reveal any significant findings to help explain his dizziness; imaging studies did show (+) chronic ischemic microangiopathy in the white matter of both cerebral hemispheres that are stable in appearance and a tiny remote deep white matter infarct in the right parietal white matter that is unchanged in appearance. No acute or subacute cerebral ischemic changes are seen States that canalith positioning with physical therapy in the past helped minimally He was referred to and seen by ENT last year and they also cannot explain patient's symptoms and are considering the possibility of labyrinthitis vs. vestibular neuritis He was tried on Acetazolamide 125 mg BID, which he states have also not helped much He was seen again for follow up by ENT in [place] and sent for a repeat brain MRI for further evaluation, which reportedly came back with no acute findings Has been taking Meclizine 25 mg TID PRN but states that it has also not been helping; reminded again that there is really no effective Rx for his dizziness Patient states that his dizziness appears to have resolved significantly lately and are not really bothering him too much at this time (6) Sensorineural hearing loss: Code(s): H90.5 - Unspecified sensorineural hearing loss Qualifiers: Laterality: bilateral Qualified Code(s): H90.3 - Sensorineural hearing loss, bilateral Plan: Audiogram done a couple of years ago (in 2020) revealed (+) sensorineural hearing loss in both ears (7) GERD without esophagitis: Code(s): K21.9 - Gastro-esophageal reflux disease without esophagitis Plan: Dietary restrictions reinforced Continue Omeprazole 20 mg QD (8) Numbness and tingling in right hand: Code(s): R20.0 - Anesthesia of skin; R20.2 - Paresthesia of skin Plan: Was seen by Neurology a few months ago and was sent for an MRI of the brain, which showed changes of chronic microangiopathy and findings consistent with his history of CVA, with no new findings noted Patient also reportedly had an EMG and nerve conduction velocity done recently that came back normal Follow up with neurology as scheduled Plan Follow up in 4 months Orders: Orders Hemoglobin A1c 4 Months R73.01 - Impaired fasting glucose Comprehensive [place]. Panel Fast 4 Months E78.00 - Pure hypercholesterolemia, unspecified Complete Blood Count Auto Diff 4 Months I10 - Essential (primary) hypertension Lipid Panel 4 Months E78.00 - Pure hypercholesterolemia, unspecified TSH reflex Free T4 4 Months E78.00 - Pure hypercholesterolemia, unspecified UA CC w/rflx Micro + Cult 4 Months R30.0 - Dysuria Coding Level of Care Code Est Pt Level 4 (34307) Diagnoses Benign essential hypertension I10 Pure hypercholesterolemia E78.00 Stage 3a chronic kidney disease N18.31 Chronic kidney disease stage 3 subtype: stage 3a (GFR 45-59) Vitamin D deficiency E55.9 Dizziness R42 Sensorineural hearing loss (SNHL) of both ears H90.3 Laterality: bilateral GERD without esophagitis K21.9 Numbness and tingling in right hand R20.0; R20.2
[2023-03-11 13:24] VITALS: BP 120/76; BMI 29.7
== END 2023-03-11 13:52 | disposition home or self-care (01) ==
PROVIDERS: PCP Internal Medicine; Visit Provider Internal Medicine
DX: I12.9 Hypertensive chronic kidney disease with stage 1 through stage 4 chronic kidney disease, or unspecified chronic kidney disease (principal); N18.31 Chronic kidney disease, stage 3a; E55.9 Vitamin D deficiency, unspecified; K21.9 Gastro-esophageal reflux disease without esophagitis; E78.00 Pure hypercholesterolemia, unspecified; R42 Dizziness and giddiness; H90.3 Sensorineural hearing loss, bilateral; R20.0 Anesthesia of skin; R20.2 Paresthesia of skin
CPT/HCPCS: 99214

== ENCOUNTER 2023-03-26 16:04 | Emergency (ER) | payer OTHER, SELFPAY ==
--- NOTE | ~2023-03-26 | CT_ITS ---
EXAMINATION: CT HEAD WITHOUT CONTRAST CLINICAL INFORMATION: Dizziness. COMPARISON: CT head performed on 02/07/2022. MRI performed 01/02/2022. TECHNIQUE: Contiguous axial imaging was performed from the skull base to vertex without intravenous administration of contrast. This CT examination was performed using dose optimization techniques as appropriate, variously including the following: *Automated exposure control *Adjustment of mA and/or kV according to patient size (this includes techniques or standardized protocols for targeted exams where dose is matched to indication/reason for exam; i.e. extremities or head) *Use of iterative reconstruction technique DLP: 618 mGy-cm FINDINGS: The lateral, third and fourth ventricles are normally outlined. The cortical sulci and basal cisterns are normally outlined as well. There is mild bilateral periventricular and central white matter diminished attenuation. There is no acute territorial defect, hemorrhage or midline shift. The extra-axial spaces are unremarkable. Calvarium: Intact. Maxillofacial sinuses and mastoids: Clear as visualized. CT/CT head/brain wo IV con IMPRESSION: Mild bilateral periventricular and central white matter diminished attenuation is nonspecific but likely to represent microvascular disease. A similar finding was seen previously. No acute intracranial abnormality.
[2023-03-26 16:05] VITALS: BP 153/86; PULSE 60; RESP 18; TEMP 36.6; O2SAT 100; BMI 28.4
--- NOTE | 2023-03-26 16:06 | ED.DIZZY ---
HPI - Dizziness General Chief Complaint: General Medical Stated Complaint: dizziness, nausea Time Seen by Provider: 03/26/23 19:13 Source: patient Mode of arrival: ambulatory Limitations: no limitations History of Present Illness HPI Narrative: Patient with history of vertigo for last 1 year seen neurologist, ENT specialist had brain MRI in 01/18 which was negative for any stroke comes in for similar episode of dizziness for last few days got worse today feel weak lightheadedness feeling no vertiginous feeling at this time does have your tinnitus in the right side patient orthostatic were normal. Patient feels nauseated no vomiting or diarrhea is not taking currently any medication patient feels everything blurred no chest pain or palpitation with no tremors no focal weakness patient's speech is normal Related Data Home Medications Medication Instructions Recorded Confirmed aspirin 81 mg tablet,delayed 81 mg PO DAILY 05/09/20 03/11/23 release (Adult Low Dose Aspirin) Previous Rx's Medication Instructions Recorded meclizine 25 mg tablet 25 mg PO TID PRN dizziness 30 days 02/18/22 #90 tabs pravastatin 20 mg tablet 20 mg PO DAILY #90 tabs 06/25/22 cholecalciferol (vitamin D3) 50 50 mcg PO DAILY 90 days #90 caps 07/30/22 mcg (2,000 unit) capsule amlodipine 5 mg tablet 5 mg PO DAILY #90 tabs 12/25/22 lisinopril 40 mg tablet 40 mg PO DAILY 90 days #90 tabs 03/26/23 lorazepam 1 mg tablet (Ativan) 1 mg PO BID PRN vertigo #20 tabs 03/26/23 Allergies Allergy/AdvReac Type Severity Reaction Status Date / Time No Known Allergies Allergy Verified 03/11/23 15:46 [No Known Allergies*] Review of Systems Review of Systems: Yes all other systems are reviewed and are negative [facility] Past Medical History Medical History Obesity (BMI 30-39.9) Vitamin D deficiency GERD without esophagitis RUQ pain Tinnitus of right ear Overweight (BMI 25.0-29.9) Chronic kidney disease (CKD), stage III (moderate) Pure hypercholesterolemia Benign essential hypertension Surgical History Hx laparoscopic cholecystectomy (~11/2020) No pertinent past surgical history Family History Family History Father No problems noted. Mother Breast cancer Maternal Grandmother Breast cancer Social History Social History Household Members: Spouse Housing: House Alcohol intake: current Alcohol intake frequency: holidays/special occasions only Patient Tobacco Use Status: Never used Tobacco e-Cigarette/Vaping Use: Never Used Second Hand Smoke Exposure: Yes service: No Current occupational status: unemployed Cognitive needs: No Hearing needs: No Vision needs: No Physical Exam Vital Signs: Vital Signs: Last Vital Signs Temp 98.0 F 03/26/23 22:17 Pulse 75 03/26/23 22:17 Resp 15 03/26/23 22:17 BP 149/86 H 03/26/23 22:17 Pulse Ox 97 03/26/23 22:17 O2 Del Method Room Air 03/26/23 22:17 BMI result Body Mass Index 28.4 Appearance: Alert. Oriented X3. No acute distress. Eyes: PERRLA, No Nystagmus ENT: Pharynx normal. Oral Mucosa moist Neck: Normal inspection. Neck supple. CVS: Normal heart rate and rhythm. Pulses normal. Respiratory: No respiratory distress. Equal air entry bilateral, no wheezing/rales/rhonchi Abdomen: Soft and nontender. Bowel sounds are present, no mass palpable, no CVA tenderness Skin: Skin warm and dry. Normal skin color. Normal skin turgor. Extremities: No lower extremity edema. No calf tenderness Neuro: Oriented X 3. No motor deficit. No sensory deficit.No cerebellar signs , cranial nerves II-XII intact Course Course Course Narrative: RME:?57 yo M w/ pmhx of CVA (10 yrs ago) presents today w/ dizziness (room spinning sensation) worse with opening his eyes x3 weeks with associated nausea/ vomiting, RIVAS, photophobia and chest pain. Denies SOB, weakness, blurred vision. Not how prev CVA presented. Had to leave work today d/t sx. Fatiguable nystamus b/l. Exam nonfocal. labs, trop, EKG, CXR, orthos ordered. Full HPI, ROS and PE to be performed by the primary ED provider. Medications Administered Discontinued Medications Generic Name Dose Route Start Last Admin Trade Name Cheli PRN Reason Stop Dose Admin Lorazepam 1 mg 03/26/23 19:58 03/26/23 20:51 Lorazepam 1 Mg Tablet PO 03/26/23 19:59 1 mg ONCE ONE Administration Meclizine HCl 50 mg 03/26/23 19:58 03/26/23 20:51 Meclizine Hcl 25 Mg Tablet PO 03/26/23 19:59 Not Given ONCE ONE Medical Decision Making Medical Decision Making [facility] Narrative: PVD nonspecific dizziness with previous digital examination is negative discharge patient home meclizine Ativan Differential Diagnosis Differential Diagnoses: The differential diagnosis associated with the presentation includes Posterior stroke/benign positional vertigo/orthostatic hypotension/ Lab Data [facility] Lab Attestation statement: I reviewed the patient's lab results. 03/26/23 16:28 03/26/23 16:28 Labs: Lab Results 03/26/23 Range/Units 16:28 WBC 10.5 (4.8-10.8) X10*3/uL RBC 5.13 (4.60-5.80) X10*6/uL Hgb 14.4 (14.0-18.0) g/dl Hct 43.1 (42.0-52.0) % MCV 84.0 (80.0-98.0) fL MCH 28.1 (27.0-33.0) pg MCHC 33.4 (31.0-36.0) g/dl RDW 12.4 (11.0-16.0) % Plt Count 259 (160-400) X10*3/uL MPV 9.9 (9.4-12.4) fL Immature Gran % (Auto) 0.5 H (0.0-0.4) % Neut % (Auto) 77.8 H (45-73) % Lymph % (Auto) 12.2 L (20-40) % Maries % (Auto) 7.1 (2-11) % Eos % (Auto) 1.6 (0-4) % Baso % (Auto) 0.8 (0-2) % Lymph # (Auto) 1.3 (1.2-4.9) X10*3/uL Maries # (Auto) 0.7 (0.1-1.2) X10*3/uL Eos # (Auto) 0.2 (0.0-0.4) X10*3/uL Baso # (Auto) 0.1 (0.0-0.2) X10*3/uL Abs Immat Gran (auto) 0.05 H (0.00-0.03) X10*3/uL Absolute Neuts (auto) 8.2 (2.0-8.3) x10*3/uL Absolute Nucleated RBC 0.000 (0.0-0.012) X10*3/uL Nucleated RBC % (auto) 0.0 (0.0-0.2) /100WBC Sodium 137 (135-145) mmol/L Potassium 3.8 (3.3-5.1) mmol/L Chloride 102 (96-108) mmol/L Carbon Dioxide 26 (22-29) mmol/L Anion Gap 13 (12-20) BUN 23 H (9-16) mg/dL Creatinine 1.48 H (0.5-1.4) mg/dL Estim Creat Clear Calc 60.1 Estimated GFR 49 Random Glucose 110 (60-115) mg/dL Calcium 9.9 (8.4-10.2) mg/dL Magnesium 2.3 (1.6-2.6) mg/dL Total Bilirubin 0.7 (0.0-1.0) mg/dL AST 19 (5-37) U/L ALT 25 (0-40) U/L Alkaline Phosphatase 73 (39-117) U/L Troponin I High Sens < 2.7 (<3.5-35.0) ng/L Total Protein 7.4 (6.5-8.0) g/dL Albumin 4.4 (3.5-5.0) g/dL Discharge Plan Discharge Clinical Impression: Vertigo Patient Disposition: Home, Self-Care Instructions: Vertigo (ED) Additional Instructions: Take lorazepam 1 mg tablet twice daily as needed for severe dizziness/vertigo Follow-up with PCP/neurology Prescriptions: New lorazepam [Ativan] 1 mg tablet 1 mg PO BID PRN (Reason: vertigo) Qty: 20 0RF No Action pravastatin 20 mg tablet 20 mg PO DAILY Qty: 90 3RF amlodipine 5 mg tablet 5 mg PO DAILY Qty: 90 1RF lisinopril 40 mg tablet 40 mg PO DAILY 90 Days Qty: 90 1RF aspirin [Adult Low Dose Aspirin] 81 mg tablet,delayed release (DR/EC) 81 mg PO DAILY meclizine 25 mg tablet 25 mg PO TID PRN (Reason: dizziness) 30 Days Qty: 90 1RF cholecalciferol (vitamin D3) 50 mcg (2,000 unit) capsule 50 mcg PO DAILY 90 Days Qty: 90 3RF Discharge Date/Time: 03/26/23 22:49
--- NOTE | 2023-03-26 16:10 | ECG_ITS ---
Test Reason : DIZZINESS Blood Pressure : / mmHG Vent. Rate : 058 BPM Atrial Rate : 058 BPM P-R Int : 164 ms QRS Dur : 080 ms QT Int : 440 ms P-R-T Axes : 055 000 039 degrees QTc Int : 431 ms Sinus bradycardia Otherwise normal ECG When compared with ECG of 07-FEB-2022 19:56, No significant change was found Referred By: Harleen Gonzales Electronically Signed By:KARL BRITO
[2023-03-26 16:34] LABS: MANUAL DIFF FLAG NO
[2023-03-26 16:40] LABS: Basophils Absolute Auto 0.1 X10*3/uL (0.0-0.2); Basophils Percent Auto 0.8 % (0-2); Eosinophils Absolute Auto 0.2 X10*3/uL (0.0-0.4); Eosinophils Percent Auto 1.6 % (0-4); Hematocrit 43.1 % (42.0-52.0); Hemoglobin 14.4 g/dl (14.0-18.0); Imm Gran Abs Auto 0.05 X10*3/uL (0.00-0.03); Imm Gran Pct Auto 0.5 % (0.0-0.4); Lymphocytes Absolute Auto 1.3 X10*3/uL (1.2-4.9); Lymphocytes Percent Auto 12.2 % (20-40); Mean Corpuscular HGB Conc 33.4 g/dl (31.0-36.0); Mean Corpuscular Hemoglobin 28.1 pg (27.0-33.0); Mean Platelet Volume 9.9 fL (9.4-12.4); Monocytes Absolute Auto 0.7 X10*3/uL (0.1-1.2); Monocytes Percent Auto 7.1 % (2-11); Neutrophils Absolute Auto 8.2 x10*3/uL (2.0-8.3); Neutrophils Percent Auto 77.8 % (45-73); Platelet Count 259 X10*3/uL (160-400); Red Blood Count 5.13 X10*6/uL (4.60-5.80); Red Cell Distribution Width 12.4 % (11.0-16.0); White Blood Count 10.5 X10*3/uL (4.8-10.8)
[2023-03-26 16:48] LABS: Alanine Aminotransferase 25 U/L (0-40); Albumin Level 4.4 g/dL (3.5-5.0); Alkaline Phosphatase 73 U/L (39-117); Anion Gap 13 (12-20); Aspartate Amino Transferase 19 U/L (5-37); Bilirubin Total 0.7 mg/dL (0.0-1.0); Blood Urea Nitrogen 23 mg/dL (9-16); Calcium 9.9 mg/dL (8.4-10.2); Carbon Dioxide 26 mmol/L (22-29); Chloride 102 mmol/L (96-108); Creatinine Clr Calc Pharmacy 60.1; Estimated Glomerular Filt Rate 49; Glucose Random 110 mg/dL (60-115); Magnesium 2.3 mg/dL (1.6-2.6); Potassium 3.8 mmol/L (3.3-5.1); Sodium 137 mmol/L (135-145); Total Protein 7.4 g/dL (6.5-8.0)
[2023-03-26 16:56] LABS: Troponin-I High Sensitivity < 2.7 ng/L (<3.5-35.0)
[2023-03-26 19:04] VITALS: BP 170/98; PULSE 72; RESP 12; O2SAT 100
[2023-03-26 19:06] VITALS: BP 156/90; BP 170/98; PULSE 68; PULSE 71
[2023-03-26 19:08] VITALS: BP 141/89; PULSE 65
--- NOTE | 2023-03-26 19:09 | PC.NURSE ---
pt reporting intermittent dizziness x 3 wks; worse today onset 1445 today; lasted 2 hours, resolved now. pt reports n/v during this episode which has resolved as well. pt denies cp/sob to this RN. orthostatic vitals as documented pt denied sx during position changes. pt states he sees ent; has mri scheduled late march. vss. awaiting primary eval by ed provider. at bedside. call curran within reach.
[2023-03-26 20:22] VITALS: BP 157/92; PULSE 67; RESP 17; O2SAT 100
[2023-03-26] MEDS: LORazepam 1 MG TABLET PO (20:51)
--- NOTE | 2023-03-26 20:51 | PC.NURSE ---
pt refusing meclizine as tony taken it before and it doesnt help. will make provider aware.
--- NOTE | 2023-03-26 20:55 | PC.NURSE ---
Dr. Stallings aware of med refusal; no new orders at this time.
[2023-03-26 22:17] VITALS: BP 149/86; PULSE 75; RESP 15; TEMP 36.7; O2SAT 97
== END 2023-03-26 22:49 | disposition home or self-care (01) ==
PROVIDERS: Physician Assistant Medical; Emergency Provider Internal Medicine; PCP Internal Medicine
DX: R42 Dizziness and giddiness (principal); R00.1 Bradycardia, unspecified; R11.2 Nausea with vomiting, unspecified; Z79.899 Other long term (current) drug therapy
CPT/HCPCS: 36415; 70450; 80053; 83735; 84484; 85025; 93005; 99284

== ENCOUNTER 2023-04-01 11:21 | Outpatient (AMB) | payer OTHER, SELFPAY ==
--- NOTE | 2023-04-01 11:23 | MHC.PC.OV ---
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 Required: No Peripheral Edp Equipment Operator: Not Required per policy Accompanied by: Self / Same As Patient Allergies No Known Allergies [No Known Allergies*] Allergy (Verified 04/01/23 11:23) Tobacco use date assessed: 04/01/23 Dental Screening Dental Screen Date: 04/01/23 Did you have a dental visit in the last 12 months?: No Did you have a dental problem in the last 6 months where you did not have access to dental care?: No Was dental information given to patient?: No HPI HPI Comments History of Present Illness Details 57-year-old male past medical history significant for hypertension, hypercholesteremia, CKD, GERD, vertigo, vitamin-D deficiency and obesity. Patient of Dr. Saleh presents today for emergency room follow-up. Patient presented to [facility] 03/26/2023 for dizziness/ vertigo x 3 weeks , CBC unremarkable, CMP revealed elevated BUN 23/creatinine 1.48, troponin unremarkable. EKG showed sinus bradycardia heart rate 58 otherwise normal ECG. Patient's orthostatic blood pressures negative. Head CT scan showed no acute intracranial abnormality, did reveal mild bilateral periventricular in central white matter diminished attenuation is nonspecific but likely represents microvascular disease, this has been noted on a previous study in the past. Patient was discharged home on lorazepam 1 mg b.i.d. as needed for vertigo symptoms. Patient currently follows with ENT CT/CT head/brain wo IV con IMPRESSION: Mild bilateral periventricular and central white matter diminished attenuation is nonspecific but likely to represent microvascular disease. A similar finding was seen previously. No acute intracranial abnormality. Patient reports today feeling better today. Still having lingering, lightheadedness. Patient reports has upcoming follow-up for MRI with ENT to follow-up on his recurrent vestibular neuritis. Patient requesting CT scan be sent to Dr. Lemus ENT. Patient also requesting referral to Dr. Wise to reestablish care for Nephrology. Referral entered. FOR[facility]LY [facility], [facility] Medical History (Updated 03/26/23 @ 22:37 by Erwin Stallings MD) Obesity (BMI 30-39.9) Vitamin D deficiency GERD without esophagitis RUQ pain Tinnitus of right ear Overweight (BMI 25.0-29.9) Chronic kidney disease (CKD), stage III (moderate) Pure hypercholesterolemia Benign essential hypertension Surgical History (Updated 04/01/23 @ 11:27 by JARROD Friedman) Hx laparoscopic cholecystectomy (~11/2020) Family History Father No problems noted. Mother Breast cancer Maternal Grandmother Breast cancer Social History Household Members: Spouse Housing: House Alcohol intake: current Alcohol intake frequency: holidays/special occasions only Patient Tobacco Use Status: Never used Tobacco e-Cigarette/Vaping Use: Never Used Second Hand Smoke Exposure: Yes service: No Current occupational status: unemployed Cognitive needs: No Hearing needs: No Vision needs: No Questionnaire Thrive Questionnaire Date Thrive assessed: 11/01/22 RAYMOND-7 AMB Questionnaire RAYMOND-7 Date RAYMOND - 7 assessed: 11/01/22 Source: Developed by Drs. Tino Larsen, Jada Temple, Arsenio Wahl and colleagues, with an educational isiah from [employer]. Review of Systems Const Denies chills, Denies fatigue, Denies fever(s) and Denies poor appetite Eyes Denies no additional complaints ENT Reports Normal hearing present Card Denies chest pain, Denies syncope, Denies rapid heart rate and Denies dyspnea Resp Denies cough and Denies dyspnea GI Denies change in stool character, Denies constipation, Denies diarrhea, Denies nausea and Denies vomiting Denies dysuria, Denies urinary frequency and Denies urinary urgency Neuro Reports Normal hearing present, Denies confusion and Denies syncope Psych Denies confusion Endo Denies fatigue Physical exam (Primary Care) Vital Signs: Last Vital Signs Pulse 72 04/01/23 11:24 BP 110/74 04/01/23 11:24 Pulse Ox 98 04/01/23 11:24 Oxygen Delivery Method Room Air 04/01/23 11:24 BMI result Body Mass Index 29.4 Tobacco/Smoking Status: Tobacco use Status Tobacco use date assessed 04/01/23 04/01/23 11:27 Patient Tobacco Use Status Never used Tobacco 04/01/23 11:27 e-Cigarette/Vaping Use Never Used 04/01/23 11:27 Thrive Assessment: Date of Thrive Assessment Date Thrive assessed 11/01/22 04/01/23 11:27 Const General: No confusion Orientation/consciousness: No confusion HENMT Head: Yes normocephalic and Yes atraumatic Eyes Conjunctivae: conjunctivae normal Chest Chest palpation & inspection: normal inspection of the chest Resp Effort & Inspection: normal respiratory effort Auscultation: clear to auscultation bilaterally, no crackles, no rhonchi and no wheezes Cardio Rate: regular rate Rhythm: regular rhythm Heart sounds: S1 normal heart sound present and S2 normal heart sound present GI Inspection: Yes normal to inspection Neuro General: No confusion Cranial nerves: Yes Normal hearing present Extrem General: No edema Office Procedures Flu Questionnaire Does the patient have a severe egg allergy?: No Does the patient have severe life threatening allergies?: No Does the patient have a fever or illness today?: No Has the patient ever had Guillain-Tifton Syndrome?: No Has the patient ever had any past reaction to a flu shot?: No Immunizations flu vacc [id number] 6mos up(PF) 60 mcg(15 mcgx4)/0.5 mL IM syringe Performing Provider: JARED Thomas [facility] Documented (not given) by: JARROD Friedman on 04/01/23 11:28 Reason Not Given: Patient Refused Assessment and Plan Assessment & Plan (1) Vertigo: Code(s): R42 - Dizziness and giddiness Plan: Continue to follow with ENT. Can take meclizine as needed. (2) Chronic kidney disease (CKD), stage III (moderate): Code(s): N18.30 - Chronic kidney disease, stage 3 unspecified Qualifiers: Chronic kidney disease stage 3 subtype: stage 3a (GFR 45-59) Qualified Code(s): N18.31 - Chronic kidney disease, stage 3a Plan: Follow-up CMP ordered. Referral entered to reestablish care with Nephrology Dr. Fares. (3) Benign essential hypertension: Code(s): I10 - Essential (primary) hypertension Plan: Continue on amlodipine 5 mg daily. Follow low-salt diet and exercise. (4) Pure hypercholesterolemia: Code(s): E78.00 - Pure hypercholesterolemia, unspecified Plan: Continue on pravastatin 20 mg daily. Avoid fried foods, chicken skin, eggs, butter,margarine, pastries and?? red meat. (5) Dizziness: Code(s): R42 - Dizziness and giddiness Plan: Can continue to take meclizine as needed. (6) Recurrent vestibular neuritis: Comment: right Code(s): H81.20 - Vestibular neuronitis, unspecified ear Plan: Continue to follow with ENT. Plan Keep scheduled follow-up with PCP or follow-up sooner if needed. Orders: Orders Influenza [id number] Immunization Today Z23 - Encounter for immunization Comprehensive [place]. Panel Fast Today N18.30 - Chronic kidney disease, stage 3 unspecified Referrals Ophthalmology Referral H81.20 - Vestibular neuronitis, unspecified ear, R42 - Dizziness and giddiness Nephrology Referral N18.30 - Chronic kidney disease, stage 3 unspecified Coding Level of Care Code Est Pt Level 4 (42471) Diagnoses Vertigo R42 Stage 3a chronic kidney disease N18.31 Chronic kidney disease stage 3 subtype: stage 3a (GFR 45-59) Benign essential hypertension I10 Pure hypercholesterolemia E78.00 Dizziness R42 Recurrent vestibular neuritis H81.20
[2023-04-01 11:24] VITALS: BP 110/74; PULSE 72; O2SAT 98; BMI 29.4
== END 2023-04-01 11:46 | disposition home or self-care (01) ==
PROVIDERS: PCP Internal Medicine; Visit Provider Nurse Practitioner Family
DX: R42 Dizziness and giddiness (principal); I12.9 Hypertensive chronic kidney disease with stage 1 through stage 4 chronic kidney disease, or unspecified chronic kidney disease; N18.31 Chronic kidney disease, stage 3a; E78.00 Pure hypercholesterolemia, unspecified; H81.21 Vestibular neuronitis, right ear
CPT/HCPCS: 99214

== ENCOUNTER 2023-07-09 07:07 | Outpatient (REF) | payer OTHER, SELFPAY ==
[2023-07-09 07:27] LABS: MANUAL DIFF FLAG NO
[2023-07-09 07:38] LABS: Basophils Absolute Auto 0.1 X10*3/uL (0.0-0.2); Basophils Percent Auto 0.7 % (0-2); Eosinophils Absolute Auto 0.2 X10*3/uL (0.0-0.4); Hematocrit 45.6 % (42.0-52.0); Imm Gran Abs Auto 0.02 X10*3/uL (0.00-0.03); Imm Gran Pct Auto 0.2 % (0.0-0.4); Lymphocytes Absolute Auto 2.1 X10*3/uL (1.2-4.9); Lymphocytes Percent Auto 19.2 % (20-40); Mean Corpuscular HGB Conc 32.9 g/dl (31.0-36.0); Mean Corpuscular Hemoglobin 27.8 pg (27.0-33.0); Mean Corpuscular Volume 84.4 fL (80.0-98.0); Mean Platelet Volume 9.2 fL (9.4-12.4); Monocytes Absolute Auto 0.8 X10*3/uL (0.1-1.2); Monocytes Percent Auto 6.9 % (2-11); Neutrophils Absolute Auto 7.7 x10*3/uL (2.0-8.3); Platelet Count 329 X10*3/uL (160-400); Red Cell Distribution Width 12.7 % (11.0-16.0); White Blood Count 10.9 X10*3/uL (4.8-10.8)
[2023-07-09 07:46] LABS: Estimated Average Glucose 105 mg/dL; Hemoglobin A1c % 5.3 % (<6.0)
[2023-07-09 08:45] LABS: Alanine Aminotransferase 17 U/L (0-40); Albumin Level 4.1 g/dL (3.5-5.0); Alkaline Phosphatase 78 U/L (39-117); Anion Gap 13 (12-20); Aspartate Amino Transferase 16 U/L (5-37); Bilirubin Total 0.8 mg/dL (0.0-1.0); Blood Urea Nitrogen 19 mg/dL (9-16); Calcium 9.8 mg/dL (8.4-10.2); Carbon Dioxide 27 mmol/L (22-29); Chloride 106 mmol/L (96-108); Cholesterol 181 mg/dL (<200); Estimated Glomerular Filt Rate 57; Glucose Fasting 93 mg/dL (60-99); HDL Cholesterol 45 mg/dL (>40); LDL Cholesterol Calculated 124 mg/dL (<100); Potassium 4.4 mmol/L (3.3-5.1); Sodium 142 mmol/L (135-145); Total Protein 7.7 g/dL (6.5-8.0); Triglycerides 61 mg/dL (<150)
[2023-07-09 09:03] LABS: TSH reflex Free T4 0.93 uIU/mL (0.32-4.0); Vitamin D 25-OH Total 42.7 ng/mL (>30)
== END 2023-07-09 07:08 | disposition home or self-care (01) ==
LOC: HO.LAB 07:07
PROVIDERS: PCP Internal Medicine; Visit Provider Internal Medicine
DX: I10 Essential (primary) hypertension (principal); R73.01 Impaired fasting glucose; E55.9 Vitamin D deficiency, unspecified; E78.00 Pure hypercholesterolemia, unspecified
CPT/HCPCS: 36415; 80053; 80061; 82306; 83036; 84443; 85025

== ENCOUNTER 2023-07-10 12:20 | Outpatient (REF) | payer OTHER, SELFPAY ==
[2023-07-10 12:46] LABS: Appearance Urine Clear; Color Urine Dark Yellow; Glucose Urine UA Negative (Negative); Leukocyte Esterase Urine Negative (Negative); Nitrite Urine Negative (Negative); PH 5.5 (5.0-9.0); Specific Gravity - Urine 1.025 (1.005-1.025); UMIC TRIGGER UACC YES; Urine Blood Small (1+) (Negative); Urine Ketones Trace mg/dL (Negative); Urine Protein 30 (1+) mg/dL (Neg-Trace)
[2023-07-10 12:51] LABS: Bacteria Urine None Seen (None Seen); Hyaline Casts Urine 0-2 /LPF (0-2); Squamous Epithelial Cell Urine 0-2 /HPF (0-2); WBC Urine 0-5 /HPF (0-5)
== END 2023-07-10 12:21 | disposition home or self-care (01) ==
LOC: HO.LNP 12:20
PROVIDERS: Visit Provider Internal Medicine
DX: R30.0 Dysuria (principal)
CPT/HCPCS: 81001

== ENCOUNTER 2023-07-11 15:23 | Outpatient (AMB) | payer OTHER, SELFPAY ==
[2023-07-11 15:24] VITALS: BP 120/82; PULSE 67; O2SAT 98; BMI 30.1
--- NOTE | 2023-07-11 15:24 | A.OFFPC_ITS ---
Vital Signs 07/11/23 15:24 Height 5 ft 9 in Weight 204 lb 2 oz BMI 30.1 BP 120/82 Blood Pressure Location Lt brachial Position Sitting Pulse 67 Pulse Source Pulse Oximeter Pulse Oximetry (%) 98 Oxygen Delivery Method Room Air Intake Visit Reasons: hyperlipidemia, HTN Cnc Manager Required: No Accompanied by: Self / Same As Patient Allergies No Known Allergies [No Known Allergies*] Allergy (Verified 07/11/23 16:00) Medication List - Last Reconciled 07/11/23 by Schuyler Curiel MD amlodipine 5 mg PO DAILY aspirin (Adult Low Dose Aspirin) 81 mg PO DAILY cholecalciferol (vitamin D3) 50 mcg PO DAILY 90 days lisinopril 40 mg PO DAILY 90 days lorazepam (Ativan) 1 mg PO BID PRN pravastatin 20 mg PO DAILY Tobacco use date assessed: 07/11/23 Dental Screening Dental Screen Date: 07/11/23 Did you have a dental visit in the last 12 months?: Yes Did you have a dental problem in the last 6 months where you did not have access to dental care?: No Was dental information given to patient?: Patient has dentist HPI hyperlipidemia, HTN HPI Details Patient comes in today for his follow up visit States that he had another bout of vertigo back in March 2023 and he went to the ER to have this checked out further and addressed States that his vertigo has since cleared up but he still gets that often on States that he feels okay otherwise He denies any headaches Denies any chest pains, no shortness of breath No nausea/ vomiting, no abdominal pain No change in bowel habits noted Had his follow-up labs done a couple of days ago - to discuss his results [facility] Medical History Obesity (BMI 30-39.9) Vitamin D deficiency GERD without esophagitis RUQ pain Tinnitus of right ear Overweight (BMI 25.0-29.9) Chronic kidney disease (CKD), stage III (moderate) Pure hypercholesterolemia Benign essential hypertension Surgical History Hx laparoscopic cholecystectomy (~11/2020) Family History Father No problems noted. Mother Breast cancer Maternal Grandmother Breast cancer Social History Household Members: Spouse Housing: House Alcohol intake: current Alcohol intake frequency: holidays/special occasions only Patient Tobacco Use Status: Never used Tobacco e-Cigarette/Vaping Use: Never Used Second Hand Smoke Exposure: Yes service: No Current occupational status: unemployed Cognitive needs: No Hearing needs: No Vision needs: No Questionnaire PHQ-9 Over the last 2 weeks, how often have you been bothered by any of the following problems? 1. Little interest or pleasure in doing things: not at all 2. Feeling down, depressed, or hopeless: not at all 3. Trouble falling or staying asleep, or sleeping too much: not at all 4. Feeling tired or having little energy: not at all 5. Poor appetite or overeating: not at all 6. Feeling bad about yourself - or that you are a failure or have let yourself or your family down: not at all 7. Trouble concentrating on things, such as reading the newspaper or watching television: not at all 8. Moving or speaking so slowly that other people could have noticed. Or the opposite - being so fidgety or restless that you have been moving around a lot more than usual: not at all 9. Thoughts that you would be better off or of hurting yourself in some way: not at all Total score: 0 Depression Screening Interpretation: Negative Depression Screening Done: Yes 49779 - PHQ-9 Billing: Yes Source: Developed by Drs. Tino Larsen, Jada Temple, Arsenio Wahl and colleagues, with an educational isiah from [employer]. Thrive Questionnaire Date Thrive assessed: 07/11/23 I am a: Patient What is your living situation today?: I have a steady place to live Within the past 12 months, did the food you bought not last and you didn't have the money to get more?: Never true Within the past 12 months, did you worry whether your food would run out before you got money to buy more?: Never true Do you have trouble paying for medicines?: No Do you have trouble getting transportation to medical appointments?: No Do you have trouble paying your heating and electricity bill?: No Do you have trouble taking care of your child, family member or friend?: No Do you have trouble with day-to-day activities such as bathing, preparing meals, shopping, managing finances, etc.?: No Are you currently unemployed and looking for a job?: No Are you interested in more education?: No Please select the resources that you would like help with: None Currently or been in a relationship where the following occur: no concerns reported AUDIT C Alcohol Use Questionnaire (AUDIT-C) 1. How often do you have a drink containing alcohol?: Monthly or less 2. How many drinks containing alcohol do you have on a typical day when you are drinking?: 1 or 2 3. How often do you have six or more drinks on one occasion?: Never Total Score: 1 Score Reviewed/Action Taken: Yes RAYMOND-7 AMB Questionnaire RAYMOND-7 Date RAYMOND - 7 assessed: 07/11/23 Feeling nervous, anxious, or on edge: 0 = Not at all Not being able to stop or control worryin = Not at all Worrying too much about different things: 0 = Not at all Trouble relaxin = Not at all Being so restless that it is hard to sit still: 0 = Not at all Becoming easily annoyed or irritable: 0 = Not at all Feeling afraid as if something awful might happen: 0 = Not at all Total RAYMOND-7 score (0-4 normal; 5-9 mild; 10-14 moderate; 15-21 severe): 0 Source: Developed by Drs. Tino Larsen, Jada Temple, Arsenio Wahl and colleagues, with an educational isiah from [employer]. Review of Systems Const Denies chills, Denies fatigue, Denies fever(s) and Denies headache(s) Eyes Denies blurry vision ENT Denies dysphagia, Reports dizziness (on and off - last episode was in March 2023), Denies otalgia, Denies headache(s), Reports hearing loss (bilateral), Denies odynophagia, Reports tinnitus (on and off, in the right ear), Denies sinus pain and Denies sore throat Card Denies chest pain, Denies palpitations and Denies dyspnea Resp Denies cough and Denies dyspnea GI Denies abdominal pain, Denies constipation, Denies dysphagia, Denies heartburn, Denies diarrhea, Denies nausea, Denies odynophagia and Denies vomiting Denies dysuria, Denies nocturia and Denies urinary frequency Musc Reports numbness (on and off in the right hand) and Reports tingling (on and off in the right hand) Skin/Breast Denies rash Neuro Reports dizziness (on and off - last episode was in March 2023), Denies headache(s), Reports numbness (on and off in the right hand) and Reports tingling (on and off in the right hand) Endo Denies fatigue and Denies palpitations Physical exam (Primary Care) Vital Signs: Last Vital Signs Pulse 67 07/11/23 15:24 BP 120/82 07/11/23 15:24 Pulse Ox 98 07/11/23 15:24 Oxygen Delivery Method Room Air 07/11/23 15:24 BMI result Body Mass Index 30.1 Tobacco/Smoking Status: Tobacco use Status Tobacco use date assessed 07/11/23 07/11/23 15:26 Patient Tobacco Use Status Never used Tobacco 07/11/23 15:26 e-Cigarette/Vaping Use Never Used 07/11/23 15:26 PHQ-9: PHQ-9 Score PHQ-9: Total score 0 07/11/23 16:06 Depression Screening Interpretation: Negative Thrive Assessment: Date of Thrive Assessment Date Thrive assessed 07/11/23 07/11/23 15:26 Currently or been in a relationship where the following occur: no concerns reported Const General: no acute distress and alert HENMT Ears: TM's normal bilaterally and EAC's normal Throat: Yes posterior oropharynx normal and Yes tonsils normal (no TP congestion noted) Neck Neck: Yes no lymphadenopathy and Yes supple Resp Auscultation: clear to auscultation bilaterally, no rales and no wheezes Cardio Rate: regular rate Rhythm: regular rhythm Heart sounds: no murmurs GI Palpation (GI): Soft to palpation and nontender Auscultation: normal bowel sounds Back/Spine/Pelvis Thoracic/Lumbar Spine: No lumbar spinal tenderness Skin Rashes: no rashes Extrem General: Yes no clubbing, cyanosis or edema Results Reviewed Results Reviewed: Laboratory Tests 07/09/23 07/09/23 07/09/23 07:25 07:25 07:25 WBC 10.9 H Hgb 15.0 Hct 45.6 Plt Count 329 D Sodium 142 Potassium 4.4 Creatinine 1.30 Estimated GFR 57 Fasting Glucose 93 Hemoglobin A1c % 5.3 Calcium 9.8 AST 16 ALT 17 Triglycerides 61 Cholesterol 181 LDL Cholesterol, Calc 124 H HDL Cholesterol 45 25-OH Vitamin D Total 42.7 TSH 0.93 Ur Specific [place] Urine Protein Urine Glucose (UA) Urine Blood 07/10/23 07/10/23 11:23 11:23 WBC Hgb Hct Plt Count Sodium Potassium Creatinine Estimated GFR Fasting Glucose Hemoglobin A1c % Calcium AST ALT Triglycerides Cholesterol LDL Cholesterol, Calc HDL Cholesterol 25-OH Vitamin D Total TSH Ur Specific [place] 1.025 Urine Protein 30 (1+) H Urine Glucose (UA) Negative Urine Blood Small (1+) H Assessment and Plan Assessment & Plan (1) Pure hypercholesterolemia: Code(s): E78.00 - Pure hypercholesterolemia, unspecified Plan: Results of his labs done a couple of days ago reviewed and discussed with patient Reinforced low cholesterol diet Continue Pravastatin 20 mg QD Will recheck his labs and fasting lipids again in 4 months for follow up (2) Benign essential hypertension: Code(s): I10 - Essential (primary) hypertension Plan: Reinforced low sodium diet - goal is systolic BP of 120 mm or less Continue Lisinopril 40 mg QD and Amlodipine 5 mg QD; HCTZ was previously discontinued Patient is reminded to continue monitoring his BP closely (3) Chronic kidney disease (CKD), stage III (moderate): Code(s): N18.30 - Chronic kidney disease, stage 3 unspecified Qualifiers: Chronic kidney disease stage 3 subtype: stage 3a (GFR 45-59) Qualified Code(s): N18.31 - Chronic kidney disease, stage 3a Plan: Renal function appears stable on his recent labs Will continue to monitor his renal function regularly (4) Vitamin D deficiency: Code(s): E55.9 - Vitamin D deficiency, unspecified Plan: Continue Vitamin D3 2000 units QD (5) Dizziness: Code(s): R42 - Dizziness and giddiness Plan: MRI and CT of the brain done last year both did NOT reveal any significant findings to help explain his dizziness; imaging studies did show (+) chronic ischemic microangiopathy in the white matter of both cerebral hemispheres that are stable in appearance and a tiny remote deep white matter infarct in the right parietal white matter that is unchanged in appearance. No acute or subacute cerebral ischemic changes are seen States that canalith positioning with physical therapy in the past helped minimally He was referred to and seen by ENT last year and they also cannot explain patient's symptoms and considered the possibility of labyrinthitis vs. vestibular neuritis He was tried on Acetazolamide 125 mg BID, which he states also did not help much He was seen again for follow up by ENT in [place] and sent for a repeat brain MRI for further evaluation, which reportedly came back with no acute findings Has been taking Meclizine 25 mg TID PRN but states that it has also not been helping; reminded again that there is really no effective Rx for his dizziness (6) Sensorineural hearing loss: Code(s): H90.5 - Unspecified sensorineural hearing loss Qualifiers: Laterality: bilateral Qualified Code(s): H90.3 - Sensorineural hearing loss, bilateral Plan: Audiogram done a couple of years ago (in 2020) revealed (+) sensorineural hearing loss in both ears (7) GERD without esophagitis: Code(s): K21.9 - Gastro-esophageal reflux disease without esophagitis Plan: Dietary restrictions reinforced Continue Omeprazole 20 mg QD (8) Numbness and tingling in right hand: Code(s): R20.0 - Anesthesia of skin; R20.2 - Paresthesia of skin Plan: Was seen by Neurology a few months ago and was sent for an MRI of the brain, which showed changes of chronic microangiopathy and findings consistent with his history of CVA, with no new findings noted Patient also reportedly had an EMG and nerve conduction velocity done last year that came back normal Follow up with neurology as scheduled Plan Follow up in 4 months Orders: Orders Complete Blood Count Auto Diff 4 Months D64.9 - Anemia, unspecified Comprehensive [place]. Panel Fast 4 Months E78.00 - Pure hypercholesterolemia, unspecified Lipid Panel 4 Months E78.00 - Pure hypercholesterolemia, unspecified TSH reflex Free T4 4 Months E78.00 - Pure hypercholesterolemia, unspecified, R42 - Dizziness and giddiness Magnesium 4 Months E83.42 - Hypomagnesemia, R42 - Dizziness and giddiness Vitamin B12 and Folate 4 Months E53.8 - Deficiency of other specified B group vitamins, R42 - Dizziness and giddiness UA CC w/rflx Micro + Cult 4 Months R30.0 - Dysuria Vitamin D 25-OH Total 4 Months E55.9 - Vitamin D deficiency, unspecified Coding Level of Care Code Est Pt Level 4 (52819) Diagnoses Pure hypercholesterolemia E78.00 Benign essential hypertension I10 Stage 3a chronic kidney disease N18.31 Chronic kidney disease stage 3 subtype: stage 3a (GFR 45-59) Vitamin D deficiency E55.9 Dizziness R42 Sensorineural hearing loss (SNHL) of both ears H90.3 Laterality: bilateral GERD without esophagitis K21.9 Numbness and tingling in right hand R20.0; R20.2
== END 2023-07-11 16:09 | disposition home or self-care (01) ==
PROVIDERS: PCP Internal Medicine; Visit Provider Internal Medicine
DX: E78.00 Pure hypercholesterolemia, unspecified (principal); I12.9 Hypertensive chronic kidney disease with stage 1 through stage 4 chronic kidney disease, or unspecified chronic kidney disease; N18.31 Chronic kidney disease, stage 3a; E55.9 Vitamin D deficiency, unspecified; R42 Dizziness and giddiness; H90.3 Sensorineural hearing loss, bilateral; K21.9 Gastro-esophageal reflux disease without esophagitis; R20.0 Anesthesia of skin; R20.2 Paresthesia of skin
CPT/HCPCS: 99214

== ENCOUNTER 2023-07-29 14:51 | Outpatient (AMB) | payer OTHER, SELFPAY ==
--- NOTE | 2023-07-29 14:49 | A.OFFPC_ITS ---
Vital Signs 07/29/23 14:50 Height 5 ft 9 in Intake Visit Reasons: Cough Allergies No Known Allergies [No Known Allergies*] Allergy (Verified 07/11/23 16:00) Tobacco use date assessed: 07/11/23 Dental Screening Dental Screen Date: 07/29/23 Did you have a dental visit in the last 12 months?: Yes Did you have a dental problem in the last 6 months where you did not have access to dental care?: No Was dental information given to patient?: Patient has dentist HPI Cough HPI Details 58-year-old male [facility]. . Reporting symptoms of sinus congestion, sore throat and difficulty swallowing. Low-grade fever. No family member is sick. No recent travel. Patient reports symptoms of malaise and fatigue. Symptoms present for 4 weeks. Has not tested for COVID. [facility] Medical History Obesity (BMI 30-39.9) Vitamin D deficiency GERD without esophagitis RUQ pain Tinnitus of right ear Overweight (BMI 25.0-29.9) Chronic kidney disease (CKD), stage III (moderate) Pure hypercholesterolemia Benign essential hypertension Surgical History Hx laparoscopic cholecystectomy (~11/2020) Family History Father No problems noted. Mother Breast cancer Maternal Grandmother Breast cancer Social History Household Members: Spouse Housing: House Alcohol intake: current Alcohol intake frequency: holidays/special occasions only Patient Tobacco Use Status: Never used Tobacco e-Cigarette/Vaping Use: Never Used Second Hand Smoke Exposure: Yes service: No Current occupational status: unemployed Cognitive needs: No Hearing needs: No Vision needs: No Questionnaire PHQ-9 Over the last 2 weeks, how often have you been bothered by any of the following problems? 1. Little interest or pleasure in doing things: not at all 2. Feeling down, depressed, or hopeless: not at all 3. Trouble falling or staying asleep, or sleeping too much: not at all 4. Feeling tired or having little energy: not at all 5. Poor appetite or overeating: not at all 6. Feeling bad about yourself - or that you are a failure or have let yourself or your family down: not at all 7. Trouble concentrating on things, such as reading the newspaper or watching television: not at all 8. Moving or speaking so slowly that other people could have noticed. Or the opposite - being so fidgety or restless that you have been moving around a lot more than usual: not at all 9. Thoughts that you would be better off or of hurting yourself in some way: not at all Total score: 0 Depression Screening Interpretation: Negative Depression Screening Done: Yes 33923 - PHQ-9 Billing: Yes Source: Developed by Drs. Tino Larsen, Jada Temple, Arsenio Wahl and colleagues, with an educational isiah from [employer]. Thrive Questionnaire Date Thrive assessed: 07/11/23 RAYMOND-7 AMB Questionnaire RAYMOND-7 Date RAYMOND - 7 assessed: 07/11/23 Source: Developed by Drs. Tino Larsen, Jada Temple, Arsenio Wahl and colleagues, with an educational isiah from [employer]. Physical exam (Primary Care) Tobacco/Smoking Status: Tobacco use Status Tobacco use date assessed 07/11/23 07/29/23 14:50 Patient Tobacco Use Status Never used Tobacco 07/29/23 14:50 e-Cigarette/Vaping Use Never Used 07/29/23 14:50 PHQ-9: PHQ-9 Score PHQ-9: Total score 0 07/29/23 14:50 Depression Screening Interpretation: Negative Thrive Assessment: Date of Thrive Assessment Date Thrive assessed 07/11/23 07/29/23 14:50 Telehealth Telehealth Location of provider rendering services: practice address Location of patient: address on file Patient Identification confirmed using: Name, : Yes Telehealth method: voice only Patient verbally consented to treatment: Yes Patient verbally consented to billing insurance company: Yes Patient informed of any privacy concerns related to visit: Yes Minutes spent on Phone/Video with Pt.: 15 Assessment and Plan Assessment & Plan (1) Upper respiratory tract infection: Code(s): J06.9 - Acute upper respiratory infection, unspecified Plan: Antibiotics ordered. Increase fluid intake. Tylenol for aches and pains. If symptoms worsen, follow-up here for a recheck. Coding Level of Care Code Est Pt Level 3 (13565) Diagnoses Upper respiratory tract infection J06.9
== END 2023-07-29 15:22 | disposition home or self-care (01) ==
LOC: HO.HMGH 14:51
PROVIDERS: PCP Internal Medicine; Visit Provider Internal Medicine
DX: J06.9 Acute upper respiratory infection, unspecified (principal)
CPT/HCPCS: 99213

== ENCOUNTER 2023-11-25 08:16 | Outpatient (AMB) | payer OTHER, SELFPAY ==
[2023-11-25 08:45] VITALS: BP 130/90; PULSE 75; TEMP 36.8; O2SAT 97; BMI 30.1
--- NOTE | 2023-11-25 08:45 | AM.OFFWIN_ITS ---
Intake Vital Signs 11/25/23 08:45 Height 5 ft 9 in Weight 204 lb BMI 30.1 BP 130/90 H Blood Pressure Location Lt brachial Position Sitting Pulse 75 Pulse Source Pulse Oximeter Temp 98.3 F Temp Source Temporal Artery Scan Pulse Oximetry (%) 97 Oxygen Delivery Method Room Air Intake Visit Reasons: Est/nausea (lobby) Intake Note: pt is here today for nausea started 2 weeks ago Patient Tobacco Use Status: Never used Tobacco Allergies No Known Allergies [No Known Allergies*] Allergy (Verified 11/25/23 08:48) Do you need a note to return to daycare/school/sports/work: No HPI HPI Comments History of Present Illness Details Patient is a 58-year-old male in today for sick visit. He has a past medical history significant for vertigo, hypertension, GERD. Patient presents today with intermittent dizziness and nausea x2 weeks. Has longstanding history of vertigo states that this feels similar. Currently has upcoming appointment with Ear Nose Throat, has several MRI scan finding no acute findings. Denies any tingling or numbness, denies any chest pain, denies sh ortness of breath. States he has vomited about 5 times over the past 2 weeks. He states that no medication has helped in the past. Has utilize meclizine with little effect. Has utilized physical therapy with little effect. [facility] Medical History Obesity (BMI 30-39.9) Vitamin D deficiency GERD without esophagitis RUQ pain Tinnitus of right ear Overweight (BMI 25.0-29.9) Chronic kidney disease (CKD), stage III (moderate) Pure hypercholesterolemia Benign essential hypertension Surgical History Hx laparoscopic cholecystectomy (~11/2020) Family History Father No problems noted. Mother Breast cancer Maternal Grandmother Breast cancer Social History Household Members: Spouse Housing: House Alcohol intake: current Alcohol intake frequency: holidays/special occasions only Patient Tobacco Use Status: Never used Tobacco e-Cigarette/Vaping Use: Never Used Second Hand Smoke Exposure: Yes service: No Current occupational status: unemployed Cognitive needs: No Hearing needs: No Vision needs: No Review of Systems Const All systems reviewed & are unremarkable except as noted in HPI and below Reports chills, Denies fever(s), Denies headache(s) and Denies weakness Eyes Denies blurry vision, Denies diplopia and Denies eye discharge ENT Reports Normal hearing present, Reports vertigo, Reports dizziness, Denies otalgia, Denies headache(s) and Reports sore throat Card Denies chest pain and Denies dyspnea Resp Reports cough (dry) and Denies dyspnea GI Denies diarrhea, Reports nausea and Reports vomiting Musc Denies abnormal gait and Denies tingling Neuro Reports Normal hearing present, Denies Abnormal speech present, Denies abnormal gait, Reports vertigo, Reports dizziness, Denies headache(s), Denies Sensory deficit (Neuro), Denies tingling, Denies paresthesias and Denies weakness Physical Exam Vital Signs: Last Vital Signs Temp 98.3 F 11/25/23 08:45 Pulse 75 11/25/23 08:45 BP 130/90 H 11/25/23 08:45 Pulse Ox 97 11/25/23 08:45 Oxygen Delivery Method Room Air 11/25/23 08:45 BMI result Body Mass Index 30.1 Const Other: Appearance: Alert.? Oriented X3.? No acute distress.? Head: Normocephalic, Eyes: Pupils equal, round and reactive to light.?EOMI. Accommodation reflex present ENT: Pharynx erythema. TM intact and pearly adan. ? Neck: Normal inspection.? Neck supple.?Full ROM. CVS: Normal heart rate and rhythm.? Pulses normal.? Respiratory: No respiratory distress.? Breath sounds normal.? Abdomen: Soft and nontender.? Neuro: Oriented X 3.? No motor deficit.? No sensory deficit. CN 2-12 intact. Negative Romberg. Patient is able to tandem walk. Orientation/consciousness: patient oriented x3 Eyes Pupils: Equal, round and reactive pupils present Neuro General: patient oriented x3 Cranial nerves: Yes CN's II-XII intact bilaterally, Yes Equal, round and reactive pupils present, Yes Bilaterally intact EOM present and Yes Normal hearing present Cognition (Neuro): normal cognition Speech: No Abnormal speech present Gait exam (Neuro): Normal gait present Motor exam (neuro): 5 motor strength present throughout Sensory Exam: double simultaneous stimulation for sensation normal; No Sensory deficit (Neuro) or sensory level loss detected Coordination: sleqic-wp-dehz test normal, vzmo-fl-tcxv test normal, tandem gait normal and Romberg test negative Romberg Test: Negative Results AMB Rapid Strep AMB Rapid Strep Negative Last Edit by Ruthy Green MA on 11/25/23 09:34 Assessment & Plan Assessment & Plan (1) Vertigo: Comment: This is likely vertigo potentially exacerbated by upper respiratory infection. Patient will get URI and strep swab in office today. Patient will also get EKG. Negative neurological exam. Will draw labs today. Patient has declined physical therapy referral. Patient has declined medications. Patient has been educated on signs of worsening symptoms and when to report to the walk-in or when to present to the ED. Code(s): R42 - Dizziness and giddiness Plan: Take your medications as prescribed. If you were prescribed antibiotics today, it is important that you take your medication to their entirety, do not skip any doses, do not finish them early. Follow-up with your primary care provider this week. Return to the emergency department with new or worsening symptoms. Such as fevers, chills, chest pain, shortness of breath, nausea, vomiting, dizziness, headache, vision changes, lethargy In case of emergency call 911 Plan Follow-up with PCP and ENT. Orders: Orders SARS-CoV2/FLU/RSV Today J06.9 - Acute upper respiratory infection, unspecified AMB EKG-In Office Today R42 - Dizziness and giddiness Complete Blood Count Auto Diff Today Z13.0 - Encounter for screening for diseases of the blood and blood-forming organs and certain disorders involving the immune mechanism Comprehensive Met. Panel Today Z91.89 - Other specified personal risk factors, not elsewhere classified Coding Level of Care Code Est Pt Level 3 (68701) Diagnoses Vertigo R42 Time Spent (min) 28
== END 2023-11-25 10:15 | disposition home or self-care (01) ==
PROVIDERS: PCP Internal Medicine; Visit Provider Nurse Practitioner Primary Care
DX: R42 Dizziness and giddiness (principal)
CPT/HCPCS: 99213

== ENCOUNTER 2023-11-25 09:39 | Outpatient (REF) | payer OTHER, SELFPAY ==
[2023-11-25 10:28] LABS: MANUAL DIFF FLAG NO
[2023-11-25 10:36] LABS: Basophils Absolute Auto 0.1 X10*3/uL (0.0-0.2); Basophils Percent Auto 1.1 % (0-2); Eosinophils Absolute Auto 0.2 X10*3/uL (0.0-0.4); Eosinophils Percent Auto 2.3 % (0-4); Hematocrit 49.4 % (42.0-52.0); Hemoglobin 16.4 g/dl (14.0-18.0); Imm Gran Abs Auto 0.03 X10*3/uL (0.00-0.03); Imm Gran Pct Auto 0.4 % (0.0-0.4); Lymphocytes Absolute Auto 2.2 X10*3/uL (1.2-4.9); Lymphocytes Percent Auto 26.4 % (20-40); Mean Corpuscular HGB Conc 33.2 g/dl (31.0-36.0); Mean Corpuscular Hemoglobin 28.3 pg (27.0-33.0); Mean Corpuscular Volume 85.2 fL (80.0-98.0); Monocytes Absolute Auto 1.4 X10*3/uL (0.1-1.2); Monocytes Percent Auto 17.4 % (2-11); Neutrophils Absolute Auto 4.3 x10*3/uL (2.0-8.3); Neutrophils Percent Auto 52.4 % (45-73); Platelet Count 266 X10*3/uL (160-400); Red Cell Distribution Width 12.6 % (11.0-16.0); White Blood Count 8.2 X10*3/uL (4.8-10.8)
[2023-11-25 11:23] LABS: Alanine Aminotransferase 26 U/L (0-40); Albumin Level 4.4 g/dL (3.5-5.0); Alkaline Phosphatase 84 U/L (39-117); Anion Gap 16 (12-20); Aspartate Amino Transferase 22 U/L (5-37); Bilirubin Total 0.6 mg/dL (0.0-1.0); Blood Urea Nitrogen 18 mg/dL (9-16); Calcium 9.9 mg/dL (8.4-10.2); Carbon Dioxide 26 mmol/L (22-29); Chloride 103 mmol/L (96-108); Cholesterol 188 mg/dL (<200); Estimated Glomerular Filt Rate 54; Glucose Fasting 89 mg/dL (60-99); Glucose Random 89 mg/dL (60-115); HDL Cholesterol 42 mg/dL (>40); LDL Cholesterol Calculated 132 mg/dL (<100); Magnesium 2.4 mg/dL (1.6-2.6); Sodium 141 mmol/L (135-145); Total Protein 7.8 g/dL (6.5-8.0); Triglycerides 74 mg/dL (<150)
[2023-11-25 11:25] LABS: TSH reflex Free T4 1.42 uIU/mL (0.32-4.0); Vitamin D 25-OH Total 41.1 ng/mL (>30)
[2023-11-25 11:38] LABS: Folate 10.8 ng/mL (> or = 4.0); Vitamin B12 401 pg/mL (200-900)
[2023-11-25 12:08] LABS: Influenza A PCR NEGATIVE (Negative); Influenza B PCR NEGATIVE (Negative); Resp Syncy Virus RNA Qual PCR NEGATIVE (Negative); SARS COV2 PCR INHOUSE NEGATIVE (Negative)
[2023-11-25 13:41] LABS: Appearance Urine Clear; Color Urine Dark Yellow; Glucose Urine UA Negative (Negative); Leukocyte Esterase Urine Negative (Negative); Nitrite Urine Negative (Negative); PH 5.5 (5.0-9.0); Specific Gravity - Urine >= 1.030 (1.005-1.025); UMIC TRIGGER UACC YES; Urine Blood Moderate (2+) (Negative); Urine Ketones Trace mg/dL (Negative); Urine Protein 30 (1+) mg/dL (Neg-Trace)
[2023-11-25 14:12] LABS: Bacteria Urine None Seen (None Seen); Calcium Oxalate Crystals Urine Present; Hyaline Casts Urine 0-2 /LPF (0-2); RBC Urine 0-2 /HPF (0-2); Squamous Epithelial Cell Urine 0-2 /HPF (0-2); WBC Urine 0-5 /HPF (0-5)
== END 2023-11-25 09:40 | disposition home or self-care (01) ==
LOC: HO.HMGCLDS 09:39
PROVIDERS: PCP Internal Medicine; Visit Provider Nurse Practitioner Primary Care
DX: D64.9 Anemia, unspecified (principal); E78.00 Pure hypercholesterolemia, unspecified; R42 Dizziness and giddiness; E55.9 Vitamin D deficiency, unspecified; E53.8 Deficiency of other specified B group vitamins; Z91.89 Other specified personal risk factors, not elsewhere classified; J06.9 Acute upper respiratory infection, unspecified
CPT/HCPCS: 0241U; 36415; 80053; 80061; 81001; 82306; 82607; 82746; 83735; 84443; 85025

== ENCOUNTER 2023-12-24 15:56 | Outpatient (AMB) | payer OTHER, SELFPAY ==
--- NOTE | 2023-12-24 15:58 | A.OFFPC_ITS ---
Vital Signs 12/24/23 16:00 Height 5 ft 9 in Weight 207 lb 2 oz BMI 30.6 BP 90/60 Blood Pressure Location Lt brachial Position Sitting Pulse 76 Pulse Source Pulse Oximeter Pulse Oximetry (%) 98 Oxygen Delivery Method Room Air Intake Visit Reasons: 4mth f/u Intake Note: Patient is here to follow up on Vertigo, CKD, HTN. Medical Receptionist Biller Required: No Plastic Worker: Not Required per policy Accompanied by: Self / Same As Patient Allergies No Known Allergies [No Known Allergies*] Allergy (Verified 12/24/23 16:10) Medication List - Last Reconciled 12/24/23 by Schuyler Curiel MD albuterol sulfate 90 mcg/actuation (Ventolin HFA) 1 inh inhalation QID PRN amlodipine 5 mg PO DAILY aspirin (Adult Low Dose Aspirin) 81 mg PO DAILY cholecalciferol (vitamin D3) 50 mcg PO DAILY 90 days lisinopril 40 mg PO DAILY 90 days pravastatin 20 mg PO DAILY Tobacco use date assessed: 12/24/23 Dental Screening Dental Screen Date: 07/29/23 [facility] HPI Details Patient comes in today for his follow up visit States that he is still experiencing on and off dizziness; denies any headaches He has been seeing neurology as well for his recurrent dizziness and was reportedly started back on HCTZ [address] Guido last week as his blood pressure was reportedly high at the time - systolic BP was around 180 mm (per patient) Patient was taken off his HCTZ at his last visit due to low blood pressure and it was thought at the time that his relatively low blood pressure was con tributing to his symptoms of recurrent dizziness and lightheadedness He denies any chest pains, no shortness of breath No nausea/ vomiting, no abdominal pain No change in bowel habits noted Had his follow-up labs done a few weeks ago - to discuss his results [facility] Medical History Obesity (BMI 30-39.9) Vitamin D deficiency GERD without esophagitis RUQ pain Tinnitus of right ear Overweight (BMI 25.0-29.9) Chronic kidney disease (CKD), stage III (moderate) Pure hypercholesterolemia Benign essential hypertension Surgical History Hx laparoscopic cholecystectomy (~11/2020) Family History Father No problems noted. Mother Breast cancer Maternal Grandmother Breast cancer Social History Household Members: Spouse Housing: House Alcohol intake: current Alcohol intake frequency: holidays/special occasions o nly Patient Tobacco Use Status: Never used Tobacco e-Cigarette/Vaping Use: Never Used Second Hand Smoke Exposure: Yes service: No Current occupational status: unemployed Cognitive needs: No Hearing needs: No Vision needs: No Questionnaire Thrive Questionnaire Date Thrive assessed: 07/11/23 RAYMOND-7 AMB Questionnaire RAYMOND-7 Date RAYMOND - 7 assessed: 07/11/23 Source: Developed by Drs. Tino Larsen, Jada Temple, Arsenio Wahl and colleagues, with an educational isiah from [employer]. Review of Systems Const Denies chills, Reports fatigue, Denies fever(s) and Denies headache(s) Eyes Denies blurry vision ENT Denies dysphagia, Reports dizziness (on and off ), Denies otalgia, Denies headache(s), Reports hearing loss (bilateral), Denies neck pain, Denies odynophagia, Reports tinnitus (on and off, in the right ear), Denies sinus pain and Denies sore throat Card Denies chest pain, Denies palpitations and Denies dyspnea Resp Denies chest congestion, Denies cough and Denies dyspnea GI Denies abdominal pain, Denies constipation, Denies dysphagia, Denies heartburn, Denies diarrhea, Denies nausea, Denies odynophagia and Denies vomiting Denies dysuria, Denies nocturia and Denies urinary frequency Musc Denies neck pain, Reports numbness (on and off in the right hand) and Reports tingling (on and off in the right hand) Skin/Breast Denies rash Neuro Reports dizziness (on and off ), Denies headache(s), Reports numbness (on and off in the right hand) and Reports tingling (on and off in the right hand) Endo Reports fatigue and Denies palpitations Physical exam (Primary Care) Vital Signs: Last Vital Signs Pulse 76 12/24/23 16:00 BP 90/60 12/24/23 16:00 Pulse Ox 98 12/24/23 16:00 Oxygen Delivery Method Room Air 12/24/23 16:00 BMI result Body Mass Index 30.6 Tobacco/Smoking Status: Tobacco use Status Tobacco use date assessed 12/24/23 12/24/23 16:05 Patient Tobacco Use Status Never used Tobacco 12/24/23 16:05 e-Cigarette/Vaping Use Never Used 12/24/23 16:05 Thrive Assessment: Date of Thrive Assessment Date Thrive assessed 07/11/23 12/24/23 16:05 Const General: no acute distress and alert HENMT Ears: TM's normal bilaterally and EAC's normal Throat: Yes posterior oropharynx normal and Yes tonsils normal (no TP congestion noted) Neck Neck: Yes no lymphadenopathy and Yes supple Thyroid: Thyroid normal Resp Auscultation: clear to auscultation bilaterally, no rales and no wheezes Cardio Rate: regular rate Rhythm: regular rhythm Heart sounds: no murmurs GI Palpation (GI): Soft to palpation and nontender Auscultation: normal bowel sounds Back/Spine/Pelvis Thoracic/Lumbar Spine: No lumbar spinal tenderness Skin Rashes: no rashes Extrem General: Yes no clubbing, cyanosis or edema Results Reviewed Results Reviewed: Laboratory Tests 11/25/23 09:54 WBC 8.2 Hgb 16.4 Hct 49.4 Plt Count 266 Sodium 141 Potassium 4.0 Creatinine 1.36 Estimated GFR 54 Fasting Glucose 89 Calcium 9.9 Magnesium 2.4 AST 22 ALT 26 Triglycerides 74 Cholesterol 188 LDL Cholesterol, Calc 132 H HDL Cholesterol 42 Vitamin B12 401 25-OH Vitamin D Total 41.1 TSH 1.42 Ur Specific [place] >= 1.030 H Urine Protein 30 (1+) H Urine Glucose (UA) Negative Urine Blood Moderate (2+) H Urine Nitrite Negative Ur Leukocyte Esterase Negative Assessment and Plan Assessment & Plan (1) Pure hypercholesterolemia: Code(s): E78.00 - Pure hypercholesterolemia, unspecified Plan: Results of his labs done a few weeks ago reviewed and discussed with patient - he is cautioned that his cholesterol levels have increased slightly from previous despite his current Rx Reinforced low cholesterol diet; patient admits that he has not been very compliant with his diet and can do better in improving his diet We have recommended to either increase his dosage of Pravastatin or switch him to Atorvastatin for better efficacy but patient would like to try improving his diet first Continue Pravastatin 20 mg QD for now Will recheck his labs and fasting lipids in 4 months for follow up (2) Benign essential hypertension: Code(s): I10 - Essential (primary) hypertension Plan: Reinforced low sodium diet - goal is systolic BP of 120 mm or less Continue Lisinopril 40 mg QD and Amlodipine 5 mg QD; HCTZ was previously discontinued but he was started back on this (HCTZ 25 mg) by Dr. Guido last week for increased BP Patient is reminded to continue monitoring his BP closely (3) Chronic kidney disease (CKD), stage III (moderate): Code(s): N18.30 - Chronic kidney disease, stage 3 unspecified Qualifiers: Chronic kidney disease stage 3 subtype: stage 3a (GFR 45-59) Qualified Code(s): N18.31 - Chronic kidney disease, stage 3a Plan: His renal function appears stable on his recent labs Will continue to monitor his renal function regularly (4) Vitamin D deficiency: Code(s): E55.9 - Vitamin D deficiency, unspecified Plan: Continue Vitamin D3 2000 units QD (5) GERD without esophagitis: Code(s): K21.9 - Gastro-esophageal reflux disease without esophagitis Plan: Dietary restrictions reinforced Continue Omeprazole 20 mg QD (6) Dizziness: Code(s): R42 - Dizziness and giddiness Plan: MRI and CT of the brain done last year both did NOT reveal any significant findings to help explain his dizziness; imaging studies did show (+) chronic ischemic microangiopathy in the white matter of both cerebral hemispheres that are stable in appearance and a tiny remote deep white matter infarct in the right parietal white matter that is unchanged in appearance. No acute or subacute cerebral ischemic changes are seen States that canalith positioning with physical therapy in the past helped minimally He was referred to and seen by ENT last year and they also cannot explain patient's symptoms and considered the possibility of labyrinthitis vs. vestibular neuritis He was tried on Acetazolamide 125 mg BID, which he states also did not help much He was seen again for follow up by ENT in [place] and sent for a repeat brain MRI for further evaluation, which reportedly came back with no acute f indings Has been taking Meclizine 25 mg TID PRN but states that it has also not been helping; reminded again that there may really be no effective Rx for his dizziness (7) Sensorineural hearing loss: Code(s): H90.5 - Unspecified sensorineural hearing loss Qualifiers: Laterality: bilateral Qualified Code(s): H90.3 - Sensorineural hearing loss, bilateral Plan: Audiogram done a few years ago (in 2020) revealed (+) sensorineural hearing loss in both ears (8) Numbness and tingling in right hand: Code(s): R20.0 - Anesthesia of skin; R20.2 - Paresthesia of skin Plan: He was seen by Neurology a few months ago and was sent for an MRI of the brain, which showed changes of chronic microangiopathy and findings consistent with his history of CVA, with no new findings noted Patient also reportedly had an EMG and nerve conduction velocity done last year that came back normal Follow up with neurology as scheduled (9) Obesity (BMI 30-39.9): Code(s): E66.9 - Obesity, unspecified Plan: Reinforced diet; exercise and weight loss are impractical for patient at this time due to his recurrent dizziness and multiple comorbidities Plan Follow up in 4 months Orders: Orders Lipid Panel 4 Months E78.00 - Pure hypercholesterolemia, unspecified Complete Blood Count Auto Diff 4 Months D64.9 - Anemia, unspecified Comprehensive [place]. Panel Fast 4 Months E78.00 - Pure hypercholesterolemia, unspecified TSH reflex Free T4 4 Months E78.00 - Pure hypercholesterolemia, unspecified, H81.20 - Vestibular neuronitis, unspecified ear Vitamin D 25-OH Total 4 Months E55.9 - Vitamin D deficiency, unspecified, H81.20 - Vestibular neuronitis, unspecified ear C Reactive Protein 4 Months H81.20 - Vestibular neuronitis, unspecified ear UA CC w/rflx Micro + Cult 4 Months H81.20 - Vestibular neuronitis, unspecified ear, R30.0 - Dysuria Erythrocyte Sedimentation Rate 4 Months H81.20 - Vestibular neuronitis, unspecified ear, M79.7 - Fibromyalgia Coding Level of Care Code Est Pt Level 4 (88155) Complex EM visit Add On G2211 Diagnoses Pure hypercholesterolemia E78.00 Benign essential hypertension I10 Stage 3a chronic kidney disease N18.31 Chronic kidney disease stage 3 subtype: stage 3a (GFR 45-59) Vitamin D deficiency E55.9 GERD without esophagitis K21.9 Dizziness R42 Sensorineural hearing loss (SNHL) of both ears H90.3 Laterality: bilateral Numbness and tingling in right hand R20.0; R20.2 Obesity (BMI 30-39.9) E66.9
[2023-12-24 16:00] VITALS: BP 90/60; PULSE 76; O2SAT 98; BMI 30.6
== END 2023-12-24 16:21 | disposition home or self-care (01) ==
PROVIDERS: PCP Internal Medicine; Visit Provider Internal Medicine
DX: E78.00 Pure hypercholesterolemia, unspecified (principal); I12.9 Hypertensive chronic kidney disease with stage 1 through stage 4 chronic kidney disease, or unspecified chronic kidney disease; N18.31 Chronic kidney disease, stage 3a; E55.9 Vitamin D deficiency, unspecified; K21.9 Gastro-esophageal reflux disease without esophagitis; R42 Dizziness and giddiness; H90.3 Sensorineural hearing loss, bilateral; R20.0 Anesthesia of skin; R20.2 Paresthesia of skin; E66.9 Obesity, unspecified
CPT/HCPCS: 99214; G2211

== ENCOUNTER 2024-04-12 12:04 | Outpatient (REF) | payer OTHER, SELFPAY ==
[2024-04-12 12:50] LABS: C Reactive Protein 0.29 mg/dL (< or = 0.50)
[2024-04-12 13:25] LABS: Erythrocyte Sedimentation Rate 2 MM/HR (0-15)
== END 2024-04-12 12:05 | disposition home or self-care (01) ==
LOC: HO.LAB 12:04
PROVIDERS: PCP Internal Medicine; Visit Provider Registered Nurse
DX: G43.109 Migraine with aura, not intractable, without status migrainosus (principal)
CPT/HCPCS: 36415; 85652; 86140

== ENCOUNTER 2024-04-21 07:08 | Outpatient (REF) | payer OTHER, SELFPAY ==
[2024-04-21 07:27] LABS: MANUAL DIFF FLAG NO
[2024-04-21 07:49] LABS: Basophils Absolute Auto 0.1 X10*3/uL (0.0-0.2); Basophils Percent Auto 1.3 % (0-2); Eosinophils Absolute Auto 0.4 X10*3/uL (0.0-0.4); Eosinophils Percent Auto 4.6 % (0-4); Hematocrit 42.3 % (42.0-52.0); Hemoglobin 14.2 g/dl (14.0-18.0); Imm Gran Abs Auto 0.02 X10*3/uL (0.00-0.03); Imm Gran Pct Auto 0.3 % (0.0-0.4); Lymphocytes Absolute Auto 2.5 X10*3/uL (1.2-4.9); Lymphocytes Percent Auto 32.2 % (20-40); Mean Corpuscular HGB Conc 33.6 g/dl (31.0-36.0); Mean Corpuscular Hemoglobin 28.2 pg (27.0-33.0); Mean Corpuscular Volume 83.9 fL (80.0-98.0); Mean Platelet Volume 9.7 fL (9.4-12.4); Monocytes Absolute Auto 0.6 X10*3/uL (0.1-1.2); Monocytes Percent Auto 7.7 % (2-11); Neutrophils Absolute Auto 4.2 x10*3/uL (2.0-8.3); Neutrophils Percent Auto 53.9 % (45-73); Platelet Count 273 X10*3/uL (160-400); Red Blood Count 5.04 X10*6/uL (4.60-5.80); Red Cell Distribution Width 12.2 % (11.0-16.0); White Blood Count 7.8 X10*3/uL (4.8-10.8)
[2024-04-21 07:59] LABS: Appearance Urine Clear; Color Urine Yellow; Glucose Urine UA Negative (Negative); Leukocyte Esterase Urine Negative (Negative); Nitrite Urine Negative (Negative); Specific Gravity - Urine 1.015 (1.005-1.025); Urine Blood Negative (Negative); Urine Ketones Negative (Negative); Urine Protein Negative (Neg-Trace)
[2024-04-21 08:26] LABS: Alanine Aminotransferase 28 U/L (0-40); Albumin Level 3.9 g/dL (3.5-5.0); Alkaline Phosphatase 62 U/L (39-117); Anion Gap 10 (12-20); Aspartate Amino Transferase 22 U/L (5-37); Bilirubin Total 0.6 mg/dL (0.0-1.0); Blood Urea Nitrogen 20 mg/dL (9-16); Calcium 9.6 mg/dL (8.4-10.2); Carbon Dioxide 26 mmol/L (22-29); Chloride 110 mmol/L (96-108); Cholesterol 150 mg/dL (<200); Erythrocyte Sedimentation Rate 4 MM/HR (0-15); Estimated Glomerular Filt Rate 55; Glucose Fasting 106 mg/dL (60-99); HDL Cholesterol 42 mg/dL (>40); LDL Cholesterol Calculated 99 mg/dL (<100); Potassium 3.9 mmol/L (3.3-5.1); Sodium 142 mmol/L (135-145); Total Protein 6.8 g/dL (6.5-8.0); Triglycerides 45 mg/dL (<150)
[2024-04-21 08:37] LABS: TSH reflex Free T4 1.73 uIU/mL (0.32-4.0); Vitamin D 25-OH Total 45.1 ng/mL (>30)
== END 2024-04-21 07:09 | disposition home or self-care (01) ==
LOC: HO.LAB 07:08
PROVIDERS: PCP Internal Medicine; Visit Provider Internal Medicine
DX: E78.00 Pure hypercholesterolemia, unspecified (principal); D64.9 Anemia, unspecified; H81.20 Vestibular neuronitis, unspecified ear; E55.9 Vitamin D deficiency, unspecified; R30.0 Dysuria; M79.7 Fibromyalgia
CPT/HCPCS: 36415; 80053; 80061; 81003; 82306; 84443; 85025; 85652; 86140

== ENCOUNTER 2024-04-23 16:38 | Outpatient (AMB) | payer OTHER, SELFPAY ==
[2024-04-23 16:41] VITALS: BP 120/76; PULSE 77; O2SAT 99; BMI 31.2
--- NOTE | 2024-04-23 16:41 | MHC.PC.OV ---
Vital Signs 04/23/24 16:41 Height 5 ft 9 in Weight 211 lb 4 oz BMI 31.2 BP 120/76 Blood Pressure Location Lt brachial Position Sitting Pulse 77 Pulse Source Pulse Oximeter Pulse Oximetry (%) 99 Oxygen Delivery Method Room Air Intake Visit Reasons: 4 Month F/U Intake Note: Patient is here to follow up on CKD, HTN, Hypercholesterolemia. Carpet Cleaner Required: No Envelope Machine Operator: Not Required per policy Accompanied by: Self / Same As Patient Allergies No Known Allergies [No Known Allergies*] Allergy (Verified 04/23/24 17:09) Medication List - Last Reconciled 04/23/24 by Schuyler Curiel MD albuterol sulfate 90 mcg/actuation (Ventolin HFA) 1 inh inhalation QID PRN amlodipine 5 mg PO DAILY aspirin (Adult Low Dose Aspirin) 81 mg PO DAILY cholecalciferol (vitamin D3) 50 mcg PO DAILY 90 days lisinopril 40 mg PO DAILY 90 days pravastatin 20 mg PO DAILY sumatriptan succinate 50 mg PO DAILY topiramate 25 mg PO DAILY Tobacco use date assessed: 04/23/24 Dental Screening Dental Screen Date: 07/29/23 HPI 4 Month F/U HPI Details Patient comes in today for his follow up visit States that he is still experiencing frequent and recurrent dizziness He feels very frustrated that no one so far has been able to tell him what is wrong with him He has been seen by ENT and was basically supposedly advised that they could not find anything to help explain his symptoms States that he's had a couple of head CT and an MRI of the brain done over the past couple of years that only shows chronic small ischemic white matter changes and are otherwise negative and feels like every time he calls up ENT to complain of his persistent dizziness, they want to send him for another scan He was also more recently seen by Dr. Guido and was advised that his symptoms may be due to a migraine variant and he was started on Topiramate 25 mg Q HS a couple of weeks ago - patient states that he feels no different with regards to his symptoms so far and he admits that he is now feeling anxious about what is going to happen as he has not been able to go to work for the past year or so now with his persistent dizziness He also reports (+) recurrent tinnitus, especially in his right ear as well as some neck pain recently - is thinking about going to see a chiropractor for his neck He denies any headaches Denies any chest pains, no SOB No nausea/vomiting, no abdominal pain No change in bowel habits noted He had his follow up labs done a couple of days ago - to discuss his results [facility] Medical History (Updated 04/24/24 @ 07:02 by Schuyler Curiel MD) Obesity (BMI 30-39.9) Vitamin D deficiency GERD without esophagitis RUQ pain Tinnitus of right ear Overweight (BMI 25.0-29.9) Chronic kidney disease (CKD), stage III (moderate) Pure hypercholesterolemia Benign essential hypertension Surgical History (Updated 04/24/24 @ 07:03 by Schuyler Curiel MD) Hx laparoscopic cholecystectomy (~11/2020) Family History Father No problems noted. Mother Breast cancer Maternal Grandmother Breast cancer Social History Household Members: Spouse Housing: House Alcohol intake: current Alcohol intake frequency: holidays/special occasions only Patient Tobacco Use Status: Never used Tobacco e-Cigarette/Vaping Use: Never Used Second Hand Smoke Exposure: Yes service: No Current occupational status: unemployed Cognitive needs: No Hearing needs: No Vision needs: No Questionnaire Thrive Questionnaire Date Thrive assessed: 07/11/23 RAYMOND-7 AMB Questionnaire RAYMOND-7 Date RAYMOND - 7 assessed: 07/11/23 Source: Developed by Drs. Tino Larsen, Jada Temple, Arsenio Wahl and colleagues, with an educational isiah from [employer]. Review of Systems Const Denies chills, Reports fatigue, Denies fever(s) and Denies headache(s) Eyes Denies blurry vision ENT Denies dysphagia, Reports dizziness (recurrent), Denies otalgia, Denies headache(s), Reports hearing loss (bilateral), Reports neck pain (recently), Denies odynophagia, Reports tinnitus (on and off, in the right ear), Denies sinus pain and Denies sore throat Card Denies chest pain, Denies palpitations and Denies dyspnea Resp Denies chest congestion, Denies cough and Denies dyspnea GI Denies abdominal pain, Denies constipation, Denies dysphagia, Denies heartburn, Denies diarrhea, Denies nausea, Denies odynophagia and Denies vomiting Denies difficulty urinating, Denies dysuria, Denies nocturia and Denies urinary frequency Musc Reports neck pain (recently), Reports numbness (on and off in the right hand) and Reports tingling (on and off in the right hand) Skin/Breast Denies rash Neuro Reports dizziness (recurrent), Denies headache(s), Reports numbness (on and off in the right hand) and Reports tingling (on and off in the right hand) Psych Reports anxiety Endo Reports fatigue and Denies palpitations Physical exam (Primary Care) Vital Signs: Last Vital Signs Pulse 77 04/23/24 16:41 BP 120/76 04/23/24 16:41 Pulse Ox 99 04/23/24 16:41 Oxygen Delivery Method Room Air 04/23/24 16:41 BMI result Body Mass Index 31.2 Tobacco/Smoking Status: Tobacco use Status Tobacco use date assessed 04/23/24 04/23/24 16:50 Patient Tobacco Use Status Never used Tobacco 04/23/24 16:50 e-Cigarette/Vaping Use Never Used 04/23/24 16:50 Thrive Assessment: Date of Thrive Assessment Date Thrive assessed 07/11/23 04/23/24 16:50 Const General: no acute distress and alert Orientation/consciousness: patient oriented x3 HENMT Ears: TM's normal bilaterally and EAC's normal Throat: Yes posterior oropharynx normal and Yes tonsils normal (no TP congestion noted) Neck Other: (+) mild tenderness over the back of the neck Neck: Yes no lymphadenopathy and Yes supple Thyroid: Thyroid normal Resp Auscultation: clear to auscultation bilaterally, no rales and no wheezes Cardio Rate: regular rate Rhythm: regular rhythm Heart sounds: no murmurs GI Palpation (GI): Soft to palpation and nontender Auscultation: normal bowel sounds General: Yes no CVA tenderness Back/Spine/Pelvis Back: no CVA tenderness Cervical Spine: cervical muscular tenderness Thoracic/Lumbar Spine: No lumbar spinal tenderness Skin Rashes: no rashes Neuro General: patient oriented x3, moves all extremities and no focal motor deficits Cognition (Neuro): normal cognition Gait exam (Neuro): Normal gait present Extrem General: Yes no clubbing, cyanosis or edema Office Procedures Flu Questionnaire Does the patient have a severe egg allergy?: No Does the patient have severe life threatening allergies?: No Does the patient have a fever or illness today?: No Has the patient ever had Guillain-Assawoman Syndrome?: No Has the patient ever had any past reaction to a flu shot?: No Results AMB Hemoglobin A1c AMB Hemoglobin A1c 5.4 % Last Edit by JARROD Friedman on 04/23/24 16:54 Immunizations Fluarix Triv [id number] (PF) 45 mcg (15 mcg x 3)/0.5 mL IM syringe Performing Provider: Schuyler Curiel MD [facility] Administered by: Nikki Leigh LPN on 04/23/24 16:54 Dose Route Admin Location Dispensed Lot Number Expiration Date NDC 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 0.5 mL IM Right Deltoid 0.5 mL [id number] 12/27/24 [id number] Smart[employer]Card VIS Given Date VIS Provided VIS Publication Date 04/23/24 Single Vaccine 21 Eligibility Eligibility Date Funding Source Not [facility] Eligible 04/23/24 Private Results Reviewed Results Reviewed: Laboratory Last Values Hgb A1c (Clinic) 5.4 % (4.0-6.0) 04/23/24 16:40 Laboratory Tests 04/21/24 04/21/24 07:20 07:21 WBC 7.8 Hgb 14.2 Hct 42.3 Plt Count 273 ESR 4 Sodium 142 Potassium 3.9 Creatinine 1.33 Estimated GFR 55 Fasting Glucose 106 H Calcium 9.6 AST 22 ALT 28 C-Reactive Protein 0.50 Triglycerides 45 Cholesterol 150 LDL Cholesterol, Calc 99 HDL Cholesterol 42 25-OH Vitamin D Total 45.1 TSH 1.73 Ur Specific [place] 1.015 Urine Protein Negative Urine Glucose (UA) Negative Urine Blood Negative Urine Nitrite Negative Ur Leukocyte Esterase Negative Coding Level of Care Code Est Pt Level 4 (28062) Complex EM visit Add On G2211 Diagnoses Pure hypercholesterolemia E78.00 Benign essential hypertension I10 Stage 3a chronic kidney disease N18.31 Chronic kidney disease stage 3 subtype: stage 3a (GFR 45-59) Vitamin D deficiency E55.9 GERD without esophagitis K21.9 Dizziness R42 Sensorineural hearing loss (SNHL) of both ears H90.3 Laterality: bilateral Numbness and tingling in right hand R20.0; R20.2 Neck pain M54.2 Obesity (BMI 30-39.9) E66.9 Assessment & Plan Assessment & Plan (1) Pure hypercholesterolemia: Code(s): E78.00 - Pure hypercholesterolemia, unspecified Category: Medical Plan: Results of his labs done a couple of days ago reviewed and discussed with patient - he is advised that his cholesterol levels have improved from previous Reinforced low cholesterol diet Continue Pravastatin 20 mg QD Will recheck his labs and fasting lipids in 4 months for follow up (2) Benign essential hypertension: Code(s): I10 - Essential (primary) hypertension Category: Medical Plan: Reinforced low sodium diet - goal is systolic BP of 120 mm or less Continue Lisinopril 40 mg QD, Amlodipine 5 mg QD and HCTZ 25 mg QD (HCTZ was previously discontinued but he was started back on this by Dr. Guido a few months ago for increased BP) Patient is reminded to continue monitoring his BP closely (3) Chronic kidney disease (CKD), stage III (moderate): Code(s): N18.30 - Chronic kidney disease, stage 3 unspecified Category: Medical Qualifiers: Chronic kidney disease stage 3 subtype: stage 3a (GFR 45-59) Qualified Code(s): N18.31 - Chronic kidney disease, stage 3a Plan: His renal function has remained stable based on his recent labs Will continue to monitor his renal function regularly (4) Vitamin D deficiency: Code(s): E55.9 - Vitamin D deficiency, unspecified Category: Medical Plan: Continue Vitamin D3 2000 units QD (5) GERD without esophagitis: Code(s): K21.9 - Gastro-esophageal reflux disease without esophagitis Category: Medical Plan: Dietary restrictions reinforced Continue Omeprazole 20 mg QD (6) Dizziness: Code(s): R42 - Dizziness and giddiness Category: Medical Plan: MRI and CTs of the brain done over the past couple of years have NOT revealed any pertinent findings to help explain his dizziness, although his imaging studies did show (+) chronic ischemic microangiopathy in the white matter of both cerebral hemispheres that are stable in appearance and a tiny remote deep white matter infarct in the right parietal white matter that is unchanged in appearance. No acute or subacute cerebral ischemic changes are seen States that canalith positioning with physical therapy in the past helped minimally He was referred to and seen by ENT last year and they also cannot explain patient's symptoms and considered the possibility of labyrinthitis vs. vestibular neuritis He was tried on Acetazolamide 125 mg BID, which he states also did not help much He was seen again for follow up by ENT in [place] and sent for a repeat brain MRI for further evaluation, which reportedly came back with no acute findings Has been taking Meclizine 25 mg TID PRN but states that it has also not been helping, and has been reminded again that there may really be no effective Rx for his dizziness States that Dr. Guido more recently has entertained the possibility of a migraine variant for his symptoms and has tried him on Topiramate 25 mg Q HS, which patient states he's been on for a couple of weeks now but he has not noticed any improvement at all in his symptoms Will go ahead and try increasing his Topiramate to 50 mg Q HS and will add Sertraline 25 mg Q AM to help with his anxiety, which may be aggravating his symptoms as well Follow up with neurology as scheduled - states that he has an appointment coming up with Dr. Guido in mid May 2024 Will add a Lyme disease titer to his upcoming labs in 4 months for further evaluation (7) Sensorineural hearing loss: Code(s): H90.5 - Unspecified sensorineural hearing loss Category: Medical Qualifiers: Laterality: bilateral Qualified Code(s): H90.3 - Sensorineural hearing loss, bilateral Plan: Audiogram done a few years ago (in 2020) revealed (+) sensorineural hearing loss in both ears Follow up with Speech and Hearing as scheduled (8) Numbness and tingling in right hand: Code(s): R20.0 - Anesthesia of skin; R20.2 - Paresthesia of skin Category: Medical Plan: He was seen by Neurology a few months ago for this and was sent for an MRI of the brain, which showed changes of chronic microangiopathy and findings consistent with his history of CVA, with no new findings noted Patient also reportedly had an EMG and nerve conduction velocity done last year that came back normal Follow up with neurology as scheduled (9) Neck pain: Code(s): M54.2 - Cervicalgia Category: Medical Plan: Will send him for x-rays of the cervical spine for further evaluation (10) Obesity (BMI 30-39.9): Code(s): E66.9 - Obesity, unspecified Category: Medical Plan: Reinforced diet; exercise and weight loss are impractical for patient at this time due to his recurrent dizziness and multiple comorbidities Plan Follow up in 4 months Orders: Orders Influenza [id number] Immunization 04/23/24 Z23 - Encounter for immunization XR cervical spine 3V 04/23/24 M54.2 - Cervicalgia Lyme IgG/IgM w/reflex to WB 4 Months H93.11 - Tinnitus, right ear, R20.0 - Anesthesia of skin, R20.2 - Paresthesia of skin, R42 - Dizziness and giddiness AMB Hemoglobin A1c 04/23/24 N18.31 - Chronic kidney disease, stage 3a, Z13.9 - Encounter for screening, unspecified Comprehensive [place]. Panel Fast 4 Months E78.00 - Pure hypercholesterolemia, unspecified Lipid Panel 4 Months E78.00 - Pure hypercholesterolemia, unspecified Complete Blood Count Auto Diff 4 Months D64.9 - Anemia, unspecified Vitamin D 25-OH Total 4 Months E55.9 - Vitamin D deficiency, unspecified Medications: New sertraline 25 mg PO DAILY 30 days 30 tabs 3RF topiramate 50 mg PO BEDTIME 30 days 30 tabs 3RF
== END 2024-04-23 17:24 | disposition home or self-care (01) ==
PROVIDERS: PCP Internal Medicine; Visit Provider Internal Medicine
DX: I12.9 Hypertensive chronic kidney disease with stage 1 through stage 4 chronic kidney disease, or unspecified chronic kidney disease (principal); N18.31 Chronic kidney disease, stage 3a; E66.9 Obesity, unspecified; Z68.31 Body mass index [BMI] 31.0-31.9, adult; E78.00 Pure hypercholesterolemia, unspecified; E55.9 Vitamin D deficiency, unspecified; K21.9 Gastro-esophageal reflux disease without esophagitis; R42 Dizziness and giddiness; H90.3 Sensorineural hearing loss, bilateral; R20.0 Anesthesia of skin; R20.2 Paresthesia of skin; M54.2 Cervicalgia

== ENCOUNTER → 2024-04-23 16:38 | Outpatient (BNVA) | payer OTHER, SELFPAY | PROVIDERS: PCP Internal Medicine; Visit Provider Internal Medicine | DX: E78.00 Pure hypercholesterolemia, unspecified (principal); I12.9 Hypertensive chronic kidney disease with stage 1 through stage 4 chronic kidney disease, or unspecified chronic kidney disease; N18.31 Chronic kidney disease, stage 3a; E55.9 Vitamin D deficiency, unspecified; Z23 Encounter for immunization; K21.9 Gastro-esophageal reflux disease without esophagitis; R42 Dizziness and giddiness; H90.3 Sensorineural hearing loss, bilateral; R20.0 Anesthesia of skin; R20.2 Paresthesia of skin; M54.2 Cervicalgia; E66.9 Obesity, unspecified; Z68.31 Body mass index [BMI] 31.0-31.9, adult; Z79.899 Other long term (current) drug therapy | CPT/HCPCS: 83036; 90471; 90656 ==

== ENCOUNTER 2024-04-29 07:34 | Outpatient (REF) | payer OTHER, SELFPAY | END 2024-04-29 07:35 | disposition home or self-care (01) | LOC: HO.XRAY 07:34 | PROVIDERS: PCP Internal Medicine; Visit Provider Internal Medicine | DX: M54.2 Cervicalgia (principal) | CPT/HCPCS: 72040 ==

== ENCOUNTER 2024-10-29 06:15 | Outpatient (REF) | payer OTHER, SELFPAY ==
--- OUTSIDE RECORDS SUMMARY | 2024-10-29 06:17 | XMS_ITS | Clinical Summary ---
Author Organization [facility] Address [address] [place] [address] Phone Care Team Providers Care Certified Alcohol Drug Counselor Name Role Phone Randy Abdullahi MD Primary Care Provider [phone] Allergies No known active allergies Medications pravastatin (PRAVACHOL) 20 MG tablet Take 20 mg by mouth 1 (one) time each day 03/27/2023 Active lisinopril 40 MG tablet TAKE 1 TABLET BY MOUTH EVERY DAY, CHANGE FROM COMBO PILL 03/26/2023 Active aspirin (ST KELLI) 81 MG EC tablet Take 1 tablet by mouth 1 (one) time each day Active amLODIPine (NORVASC) 5 MG tablet Take 5 mg by mouth 1 (one) time each day 03/27/2023 Active amLODIPine (Norvasc) 10 MG tablet Comments: Filled Date: Sep 23 2017 10:35PM Patient Notes: TAKE 1 TABLET BY MOUTH ONCE A DAY Duration: 30 01/09/2016 Active Active Problems Problem Noted Date Diagnosed Date Essential hypertension 04/29/2023 3 Stage 3a chronic kidney disease 04/29/2023 Renal osteodystrophy 04/29/2023 Social History Tobacco Use Types Packs/Day Years Used Date Smoking Tobacco: Former Tobacco Cessation:Counseling Given: Not Answered Alcohol Use Standard Drinks/Week Comments Yes 0 (1 standard drink = 0.6 oz pure alcohol) Alcoholic Drinks/day: Occasional social drink Sex and Gender Information Value Date Recorded Sex Assigned at Not on file Legal Sex Male 5:08 PM EST Gender Identity Not on file Sexual Orientation Not on file Last Filed Vital Signs Vital Sign Reading Time Taken Comments Blood Pressure 124/64 04/29/2023 10:31 AM EDT Pulse 78 04/29/2023 10:31 AM EDT Temperature - - Respiratory Rate - - Oxygen Saturation 99% 04/29/2023 10:31 AM EDT Inhaled Oxygen Concentration - - Weight - - Height - - Body Mass Index - - Plan of Treatment Health Maintenance Due Date Last Done Comments Hepatitis B Vaccine (1 of 3 - 19+ 3-dose series) 07/22 Pneumococcal Vaccine: 50+ Years (1 of 2 - PCV) 985 Colorectal Cancer Screening: Annual FOBT 2014 Colorectal Cancer Screening: Colonoscopy 2014 Colorectal Cancer Screening: Sigmoidoscopy 2014 Influenza Vaccine (Season Ended) 2025 Insurance * Guarantor: Dorian Blood Account Type Relation to Patient Date of Phone Billing Address Personal/Family Self [address] [place] [address] Member Subscriber Plan / Payer (Ef fective 2022-Present) Name:Dorian Blood Relation to Subscriber:Self Name:Dorian Blood Payer ID:Not on file Type:Not on file Address: [address] [address] * Guarantor: Dorian Blood Account Type Relation to Patient Date of Phone Billing Address Personal/Family Self [address] [place], [place] [id number] [facility] Member Subscriber Plan / Payer (Ef fective 2022-Present) Name:Dorian Blood Relation to Subscriber:Self Name:Dorian Blood Payer ID:Not on file Type:Not on file Address: [address] [address] Care Teams Certified Alcohol Drug Counselor Relationship Specialty Start Date End Date Randy Abdullahi MD [address] [place] [address] PCP - General 07/10/20
[2024-10-29 06:29] LABS: MANUAL DIFF FLAG NO
[2024-10-29 07:19] LABS: Basophils Absolute Auto 0.1 X10*3/uL (0.0-0.2); Basophils Percent Auto 1.5 % (0-2); Eosinophils Absolute Auto 0.6 X10*3/uL (0.0-0.4); Eosinophils Percent Auto 7.7 % (0-4); Hematocrit 43.6 % (42.0-52.0); Hemoglobin 14.4 g/dl (14.0-18.0); Imm Gran Abs Auto 0.03 X10*3/uL (0.00-0.03); Imm Gran Pct Auto 0.4 % (0.0-0.4); Lymphocytes Absolute Auto 2.6 X10*3/uL (1.2-4.9); Mean Corpuscular Volume 84.7 fL (80.0-98.0); Mean Platelet Volume 10.6 fL (9.4-12.4); Monocytes Absolute Auto 0.8 X10*3/uL (0.1-1.2); Monocytes Percent Auto 9.3 % (2-11); Neutrophils Percent Auto 49.1 % (45-73); Platelet Count 224 X10*3/uL (160-400); Red Blood Count 5.15 X10*6/uL (4.60-5.80); Red Cell Distribution Width 12.7 % (11.0-16.0); White Blood Count 8.2 X10*3/uL (4.8-10.8)
[2024-10-29 08:21] LABS: Alanine Aminotransferase 30 U/L (0-40); Albumin Level 4.1 g/dL (3.5-5.0); Alkaline Phosphatase 66 U/L (39-117); Anion Gap 15 (12-20); Aspartate Amino Transferase 29 U/L (5-37); Bilirubin Total 0.8 mg/dL (0.0-1.0); Blood Urea Nitrogen 21 mg/dL (9-16); Calcium 9.3 mg/dL (8.4-10.2); Carbon Dioxide 26 mmol/L (22-29); Chloride 105 mmol/L (96-108); Cholesterol 200 mg/dL (<200); Estimated Glomerular Filt Rate > 60; Glucose Fasting 96 mg/dL (60-99); HDL Cholesterol 48 mg/dL (>40); LDL Cholesterol Calculated 137 mg/dL (<100); Potassium 3.8 mmol/L (3.3-5.1); Sodium 142 mmol/L (135-145); Total Protein 7.3 g/dL (6.5-8.0); Triglycerides 76 mg/dL (<150)
[2024-10-29 08:41] LABS: Vitamin D 25-OH Total 40.8 ng/mL (>30)
[2024-10-30 06:23] LABS: Lyme Abs Screen <0.90 index
== END 2024-10-29 06:16 | disposition home or self-care (01) ==
LOC: HO.LAB 06:15
PROVIDERS: PCP Internal Medicine; Visit Provider Internal Medicine
DX: D64.9 Anemia, unspecified (principal); E78.00 Pure hypercholesterolemia, unspecified; R42 Dizziness and giddiness; R20.0 Anesthesia of skin; H93.11 Tinnitus, right ear; E55.9 Vitamin D deficiency, unspecified
CPT/HCPCS: 36415; 80053; 80061; 82306; 85025; 86617; 86618

== ENCOUNTER 2024-11-01 09:48 | Outpatient (AMB) | payer OTHER, SELFPAY ==
[2024-11-01 09:53] VITALS: BP 120/84; PULSE 69; O2SAT 98; BMI 33.0
--- NOTE | 2024-11-01 09:53 | MHC.PC.OV ---
Vital Signs 11/01/24 09:53 Height 5 ft 9 in Weight 223 lb 4 oz BMI 33.0 BP 120/84 Blood Pressure Location Lt brachial Position Sitting Pulse 69 Pulse Source Pulse Oximeter Pulse Oximetry (%) 98 Oxygen Delivery Method Room Air Intake Visit Reasons: 4 month f/u Manager Corporate Responsibility Required: No Accompanied by: Self / Same As Patient Allergies No Known Allergies [No Known Allergies*] Allergy (Verified 11/01/24 10:12) Medication List - Last Reconciled 11/01/24 by Schuyler Curiel MD albuterol sulfate 90 mcg/actuation (Ventolin HFA) 1 inh inhalation QID PRN amlodipine 5 mg PO DAILY aspirin (Adult Low Dose Aspirin) 81 mg PO DAILY cholecalciferol (vitamin D3) 50 mcg PO DAILY 90 days lisinopril 40 mg PO DAILY 90 days pravastatin 20 mg PO DAILY sertraline 25 mg PO DAILY sumatriptan succinate 50 mg PO DAILY topiramate 50 mg PO BEDTIME Tobacco use date assessed: 11/01/24 Dental Screening Dental Screen Date: 11/01/24 Did you have a dental visit in the last 12 months?: Yes Did you have a dental problem in the last 6 months where you did not have access to dental care?: No Was dental information given to patient?: Patient has dentist HPI 4 month f/u HPI Details Patient comes in today for his follow up visit States that he feels okay Still has occasional brief dizzy spells but states that they have not been occurring as often as they did before He also still has a persistent ringing sensation in both of his ears States that he can live with his symptoms and does not wish to go for any further testings or work ups at this time as all of his previous work ups came back negative He denies any headaches Denies any chest pains, no SOB No nausea/vomiting, no abdominal pain No change in bowel habits noted He had his follow up labs done a few days ago - to discuss his results [facility] Medical History Obesity (BMI 30-39.9) Vitamin D deficiency GERD without esophagitis RUQ pain Tinnitus of right ear Overweight (BMI 25.0-29.9) Chronic kidney disease (CKD), stage III (moderate) Pure hypercholesterolemia Benign essential hypertension Surgical History Hx laparoscopic cholecystectomy (~11/2020) Family History Father No problems noted. Mother Breast cancer Maternal Grandmother Breast cancer Social History Household Members: Spouse Housing: House Alcohol intake: current Alcohol intake frequency: holidays/special occasions only Patient Tobacco Use Status: Never used Tobacco e-Cigarette/Vaping Use: Never Used Second Hand Smoke Exposure: Yes service: No Current occupational status: unemployed Cognitive needs: No Hearing needs: No Vision needs: No Questionnaire PHQ-9 Over the last 2 weeks, how often have you been bothered by any of the following problems? 1. Little interest or pleasure in doing things: not at all 2. Feeling down, depressed, or hopeless: not at all 3. Trouble falling or staying asleep, or sleeping too much: not at all 4. Feeling tired or having little energy: several days 5. Poor appetite or overeating: not at all 6. Feeling bad about yourself - or that you are a failure or have let yourself or your family down: several days 7. Trouble concentrating on things, such as reading the newspaper or watching television: not at all 8. Moving or speaking so slowly that other people could have noticed. Or the opposite - being so fidgety or restless that you have been moving around a lot more than usual: not at all 9. Thoughts that you would be better off or of hurting yourself in some way: not at all Total score: 2 Depression Screening Interpretation: Negative Depression Screening Done: Yes 85979 - PHQ-9 Billing: Yes Source: Developed by Drs. Tino Larsen, Jada Temple, Arsenio Wahl and colleagues, with an educational isiah from [employer]. Thrive Questionnaire Date Thrive assessed: 11/01/24 I am a: Patient What is your living situation today?: I have a steady place to live Within the past 12 months, did the food you bought not last and you didn't have the money to get more?: Never true Within the past 12 months, did you worry whether your food would run out before you got money to buy more?: Never true Do you have trouble paying for medicines?: No Do you have trouble getting transportation to medical appointments?: No Do you have trouble paying your heating and electricity bill?: No Do you have trouble taking care of your child, family member or friend?: No Do you have trouble with day-to-day activities such as bathing, preparing meals, shopping, managing finances, etc.?: No Are you currently unemployed and looking for a job?: No Are you interested in more education?: No Please select the resources that you would like help with: None Currently or been in a relationship where the following occur: No concerns reported THRIVE Score: 0 AUDIT C Alcohol Use Questionnaire (AUDIT-C) 1. How often do you have a drink containing alcohol?: Monthly or less 2. How many drinks containing alcohol do you have on a typical day when you are drinking?: 1 or 2 3. How often do you have six or more drinks on one occasion?: Never Total Score: 1 Score Reviewed/Action Taken: Yes RAYMOND-7 AMB Questionnaire RAYMOND-7 Date RAYMOND - 7 assessed: 11/01/24 Feeling nervous, anxious, or on edge: 0 = Not at all Not being able to stop or control worryin = Not at all Worrying too much about different things: 0 = Not at all Trouble relaxin = Not at all Being so restless that it is hard to sit still: 0 = Not at all Becoming easily annoyed or irritable: 0 = Not at all Feeling afraid as if something awful might happen: 0 = Not at all Total RAYMOND-7 score (0-4 normal; 5-9 mild; 10-14 moderate; 15-21 severe): 0 Source: Developed by Drs. Tino Larsen, Jada Temple, Arsenio Wahl and colleagues, with an educational isiah from [employer]. Review of Systems Const Denies chills, Denies fatigue, Denies fever(s) and Denies headache(s) ENT Denies dysphagia, Reports dizziness (on and off but occurring less often lately), Denies otalgia, Denies headache(s), Reports hearing loss (bilateral), Reports neck pain (recently), Denies odynophagia, Reports tinnitus (on and off, in the right ear) and Denies sore throat Card Denies chest pain, Denies palpitations and Denies dyspnea Resp Denies chest congestion, Denies cough and Denies dyspnea GI Denies abdominal pain, Denies constipation, Denies dysphagia, Denies heartburn, Denies diarrhea, Denies nausea, Denies odynophagia and Denies vomiting Denies difficulty urinating, Denies dysuria, Denies nocturia and Denies urinary frequency Musc Denies back pain, Reports arthralgias ( usual aches and pains - on and off), Reports neck pain (recently), Reports numbness (on and off in the right hand) and Reports tingling (on and off in the right hand) Skin/Breast Denies rash Neuro Reports dizziness (on and off but occurring less often lately), Denies headache(s), Reports numbness (on and off in the right hand) and Reports tingling (on and off in the right hand) Psych Reports anxiety Endo Denies fatigue and Denies palpitations Physical exam (Primary Care) Vital Signs: Last Vital Signs Pulse 69 11/01/24 09:53 BP 120/84 11/01/24 09:53 Pulse Ox 98 11/01/24 09:53 Oxygen Delivery Method Room Air 11/01/24 09:53 BMI result Body Mass Index 33.0 Tobacco/Smoking Status: Tobacco use Status Tobacco use date assessed 11/01/24 11/01/24 09:59 Patient Tobacco Use Status Never used Tobacco 11/01/24 09:59 e-Cigarette/Vaping Use Never Used 11/01/24 09:59 PHQ-9: PHQ-9 Score PHQ-9: Total score 2 11/01/24 09:59 Depression Screening Interpretation: Negative Thrive Assessment: Date of Thrive Assessment Date Thrive assessed 11/01/24 11/01/24 09:59 Currently or been in a relationship where the following occur: No concerns reported Const General: no acute distress and alert HENMT Ears: TM's normal bilaterally and EAC's normal Throat: Yes posterior oropharynx normal and Yes tonsils normal (no TP congestion noted) Neck Other: (+) mild tenderness over the back of the neck Neck: Yes supple and No lymphadenopathy Thyroid: Thyroid normal Resp Auscultation: clear to auscultation bilaterally, no rales and no wheezes Cardio Rate: regular rate Rhythm: regular rhythm Heart sounds: no murmurs GI Palpation (GI): Soft to palpation and nontender Auscultation: normal bowel sounds General: Yes no CVA tenderness Back/Spine/Pelvis Back: no CVA tenderness Cervical Spine: cervical muscular tenderness Thoracic/Lumbar Spine: No lumbar spinal tenderness Skin Rashes: no rashes Extrem General: Yes no clubbing, cyanosis or edema Results Reviewed Results Reviewed: Laboratory Tests 04/21/24 10/29/24 07:21 06:28 WBC 8.2 Hgb 14.4 Hct 43.6 Plt Count 224 Sodium 142 Potassium 3.8 Creatinine 1.17 Estimated GFR > 60 Fasting Glucose 96 Calcium 9.3 AST 29 ALT 30 Cholesterol 150 200 H Triglycerides 76 LDL Cholesterol, Calc 99 137 H HDL Cholesterol 48 25-OH Vitamin D Total 40.8 TSH 1.73 Laboratory Tests 10/29/24 06:28 Lyme Screen IgG & IgM <0.90 Coding Level of Care Code Est Pt Level 4 (07109) Complex EM visit Add On G2211 Diagnoses Pure hypercholesterolemia E78.00 Benign essential hypertension I10 Stage 3a chronic kidney disease N18.31 Chronic kidney disease stage 3 subtype: stage 3a (GFR 45-59) Vitamin D deficiency E55.9 GERD without esophagitis K21.9 Dizziness R42 Sensorineural hearing loss (SNHL) of both ears H90.3 Laterality: bilateral Numbness and tingling in right hand R20.0; R20.2 Neck pain M54.2 Obesity (BMI 30-39.9) E66.9 Additional Codes PHQ-9 - 35640 - PHQ-9 Billing: Yes ([id number]) Assessment & Plan Assessment & Plan (1) Pure hypercholesterolemia: Code(s): E78.00 - Pure hypercholesterolemia, unspecified Category: Medical Plan: Results of his labs done a few days ago reviewed and discussed with patient - patient is advised that his cholesterol levels have increased from previous, especially his LDL cholesterol Reinforced low cholesterol diet - patient admits to poor dietary compliance recently as he just got back from vacation a couple of weeks ago Continue Pravastatin 20 mg QD for now but advised that we will need to go up on his dose if his cholesterol numbers do not improve significantly over the next few months Will recheck his labs and fasting lipids in 4 months for follow up (2) Benign essential hypertension: Code(s): I10 - Essential (primary) hypertension Category: Medical Plan: Reinforced low sodium diet - goal is systolic BP of 120 mm or less Continue Lisinopril 40 mg QD, Amlodipine 5 mg QD and HCTZ 25 mg QD (HCTZ was previously discontinued but he was started back on this by Dr. Guido last year for elevated BP) Patient is reminded to continue monitoring his BP closely (3) Chronic kidney disease (CKD), stage III (moderate): Code(s): N18.30 - Chronic kidney disease, stage 3 unspecified Category: Medical Qualifiers: Chronic kidney disease stage 3 subtype: stage 3a (GFR 45-59) Qualified Code(s): N18.31 - Chronic kidney disease, stage 3a Plan: His renal function has remained stable based on his recent labs Will continue to monitor his renal function regularly (4) Vitamin D deficiency: Code(s): E55.9 - Vitamin D deficiency, unspecified Category: Medical Plan: Continue Vitamin D3 2000 units QD (5) GERD without esophagitis: Code(s): K21.9 - Gastro-esophageal reflux disease without esophagitis Category: Medical Plan: Dietary restrictions reinforced Continue Omeprazole 20 mg QD (6) Dizziness: Code(s): R42 - Dizziness and giddiness Category: Medical Plan: MRI and CTs of the brain done over the past couple of years have NOT revealed any pertinent findings to help explain his dizziness, although his imaging studies did show (+) chronic ischemic microangiopathy in the white matter of both cerebral hemispheres that are stable in appearance and a tiny remote deep white matter infarct in the right parietal white matter that is unchanged in appearance. No acute or subacute cerebral ischemic changes are seen States that canalith positioning with physical therapy in the past helped minimally He was referred to and seen by ENT a couple of years ago and they also cannot explain patient's symptoms and considered the possibility of labyrinthitis vs. vestibular neuritis He was tried on Acetazolamide 125 mg BID, which patient states also did not help much He was seen again for follow up by ENT in [place] and sent for a repeat brain MRI for further evaluation, which reportedly came back with no acute findings Has been taking Meclizine 25 mg TID PRN but states that it has also not been helping, and has been reminded again that there may really be no effective Rx for his dizziness States that Dr. Guido more recently has entertained the possibility of a migraine variant for his symptoms and has tried him on Topiramate 25 mg Q HS, which was increased to 50 mg daily at his last visit He was also started on Sertraline 25 mg Q AM to help with his anxiety, which may be aggravating his symptoms as well Lyme disease test done recently also came back negative Follow up with neurology as scheduled (7) Sensorineural hearing loss: Code(s): H90.5 - Unspecified sensorineural hearing loss Category: Medical Qualifiers: Laterality: bilateral Qualified Code(s): H90.3 - Sensorineural hearing loss, bilateral Plan: Audiogram done a few years ago (in 2020) revealed (+) sensorineural hearing loss in both ears Follow up with Speech and Hearing as scheduled (8) Numbness and tingling in right hand: Code(s): R20.0 - Anesthesia of skin; R20.2 - Paresthesia of skin Category: Medical Plan: He was seen by Neurology a few years ago for this and was sent for an MRI of the brain, which showed changes of chronic microangiopathy and findings consistent with his history of CVA, with no new findings noted Head CT done in 2022 also came back negative Patient also reportedly had an EMG and nerve conduction velocity done a couple of years ago that came back normal Follow up with neurology as scheduled (9) Neck pain: Code(s): M54.2 - Cervicalgia Category: Medical Plan: Cervical spine x-rays done back on 04/29/2024 revealed (+) multilevel degenerative changes of the cervical spine Will consider referring him to physical therapy for his neck pain if his symptoms get worse (10) Obesity (BMI 30-39.9): Code(s): E66.9 - Obesity, unspecified Category: Medical Plan: Reinforced diet; exercise and weight loss are impractical for patient at this time due to his recurrent dizziness and multiple comorbidities Plan Follow up in 4 months Orders: Orders Complete Blood Count Auto Diff 4 Months D64.9 - Anemia, unspecified Comprehensive [place]. Panel Fast 4 Months E78.00 - Pure hypercholesterolemia, unspecified Lipid Panel 4 Months E78.00 - Pure hypercholesterolemia, unspecified UA CC w/rflx Micro + Cult 4 Months R30.0 - Dysuria TSH reflex Free T4 4 Months E78.00 - Pure hypercholesterolemia, unspecified Vitamin D 25-OH Total 4 Months E55.9 - Vitamin D deficiency, unspecified
--- OUTSIDE RECORDS SUMMARY | 2024-11-01 10:56 | XMS_ITS | Data Portability ---
Author Organization [place] - [facility], Allergy Address [address] [place] [address] Care Team Providers Care Recruiting Assistant Name Role Phone SIMONA DOMINGUEZ Primary Care Provider [phone] Assessment Encounter Date Assessment Date Assessment LastModified by Organization Details LastModified Time 08/12/2024 08/12/2024 Patient with right fluctuating sensorineural hearing loss with currently significantly recovered speech discrimination. MRI scans over the past year and a half appear to have ruled out a nerve sheath tumor or a growing lesion in the internal auditory canal. Patient has had recent improvement in symptoms of episodic headaches and dizziness over the past few months, and the patient is not sure why, particular in light of the fact that he stopped many of the medications that were provided to him by his neurologist. He continues to get fairly consistent fluctuating hearing loss and fluctuating tinnitus on the right however. [email or web address] Not available 08/13/2024 14:59:22 Plan of Treatment Reminders Order Date Submit Date Provider Last Modified By Organization Details Last Modified Time Details Appointments Establish ed 10 2024 09:40A M HU BOYD MD Not available Not available Not available Lab None recorded. Referral None recorded. Procedures None recorded. Surgeries None recorded. Imaging None recorded. Medication Orders None recorded. Patient TargetsNo targets recorded. Patient InstructionsNo instructions recorded. Reason for Referral None Reported. Results Created Date Observation Date Name Description Value Unit Range Abnormal Flag Note LastModifiedBy Organization Detail LastModifiedTime 08/12/19 25 audio gram No observ ation record ed. BARCODE Not Available 2024 14:29:17 10/19/19 25 audio gram No observ ation record ed. BARCODE Not Available 2024 10:52:07 Result Notes None recorded. Problems Name Problem SNOMED Code Status Onset Date Resolution Date Notes Provider Name and Address Organization Details Recorded Time Dizziness and giddiness 995553662 Active 2021 Dizziness and giddiness ; Note: Date Diagnosed : 05/01/2022 5:19 PM (R42) Not Available [facility] 4 03:24:17 Tinnitus of right ear 31274989320 08 Active 2022 Tinnitus, right ear; Note: Date Diagnosed : 10/28/2022 10:46 AM (H93.11) Not Available [facility] 4 03:24:17 Sensorine ural hearing loss of bilateral ears 873544236 Active 2024 HU BOYD MD [address] [place] [address],[place] [address], [place], [address] , [place] - [facility] 21:22:00 Disorder of acoustic nerve 76780701 Active 2024 HU BOYD MD [address] [place] [address], [place], [address] , [facility] - [facility] 5 21:22:16 Disorder of acoustic nerve 96759982 Active 2024 HU BOYD MD [address] [place] [address], [place], [address] , [facility] - [facility] 21:22:37 Migraine variants 144071198 Active 2024 HU BOYD MD [address] [place] [address], [place], [address] , [place] - [facility] 5 12:06:00 Vertigo of central origin 26239282 Active 2024 HU BOYD MD [address] [place] [address], [place], [address] , [facility] - [facility] 12:06:00 Problem Notes None recorded. Procedures Surgical History Date Name Laterality Status Provider Name and Address Organization Details Recorded Time 5 Air only Audio - 76892 completed MARCOS BUENO [address] [facility] [address], [place], [address], [place] - [facility] 10/18/2024 09:42:45 5 SRT & Speech Recognition - 71853 completed WAYNE LITZY, AUD [address] [facility],[address], [place], [address], [place] - [facility] 10/18/2024 09:42:56 5 Comp Audio with Tymps - 57019 & 61372 completed Merry Galicia [place] - [facility] 08/12/2024 11:37:18 Imaging Results Imaging Date Name Status LastModified by Organ [facility] Details LastModified Time 08/12/2024 audiogram completed BARCODE Information no t available 08/12/2024 14:29:17 10/18/2024 audiogram completed BARCODE Information no t available 10/18/2024 10:52:07 Procedure Notes None recorded. Medical Equipment None Reported. Allergies No known drug allergies Medications Name Sig Start Date Stop Date Status Note LastModified by Organization Details LastModified Time sumatript an 50 mg tablet TAKE 1 TABLET NEEDED, MAY TAKE SECOND DOSE AT LEAST 2 HOURS AFTER, UP TO 4 TABLETS PER DAY 08/12 completed Not Available Not Available Not Available topiramat e 25 mg tablet TAKE 1 TABLET BY MOUTH EVERY DAY FOR 30 DAYS 08/12 completed Not Available Not Available Not Available amlodipin e 5 mg tablet TAKE 1 TABLET BY MOUTH EVERY DAY active Not Available Not Available No t Available sertralin e 25 mg tablet TAKE 1 TABLET BY MOUTH EVERY DAY 08/12 completed Not Available Not Available Not Available pravastat in 20 mg tablet TAKE 1 TABLET BY MOUTH EVERY DAY active Not Available Not Available No t Available lisinopri l 40 mg tablet TAKE 1 TABLET BY MOUTH EVERY DAY active Not Available Not Available No t Available Adult Low Dose Aspirin 81 mg tablet,de layed release active Medicati on ID: [id number] B rand Name: Adult Low Dose Aspirin Send Method: E-Prescr ibed Sub s Allowed: subs OK Medic ationGen ericName : Adult Low Dose Aspirin Not Available Not Available Not Available topiramat e 50 mg tablet TAKE 1 TABLET BY MOUTH AT BEDTIME 08/12 completed Not Available Not Available Not Available hydrochlo rothiazid e 12.5 mg tablet TAKE 1 TABLET BY MOUTH EVERY DAY IN THE MORNING 08/12 completed Not Available Not Available Not Available Vitals Date Recorded Body height Body weight Provider Name and Address Organization Details Last Updated DateTime 10/18/2024 175.26 cm 00603.44 g Neda Bernabe [place] - [facility] 10/18/2024 08:48:25 Date Recorded Body height Body mass index (BMI) Body weight Provider Name and Address Organization Details Last Updated DateTime 08/12/2024 175.26 cm 30.3 kg/m2 88440.44 g Meredith Su [place] - [facility] 08/12/2024 11:56:09 Social History None recorded. Functional Status None recorded. Mental Status None recorded. Family History Nothing Reported. Medical History Condition Response Allergies/Hayfever N Heart Problems N Anxiety N Tonsil Infections N Emphysema N Migraines Y Thyroid Problems N Glaucoma N Depression N COPD N Developmental Delay N Nasal or Sinus Problems N Anemia N Immune System Disorder N Anesthesia Complications N Heart Attack ([place]) N Other Skin Condition N Diabetes N Rhinitis N Bleeding Disorder N Food Allergy N Arthritis N Hearing Loss N Hyperlipidemia N Cancer N Stroke Y Dementia N Nasal polyps N Asthma N Sleep Disorder N GERD/Reflux N High Cholesterol Y Liver Disease N Headaches Y Fibromyalgia N Hypertension Y Speech Delay N Kidney Disease N Past Encounters Encounter ID Performer Location Encounter Start Date Encounter Closed Date Diagnosis/Indication Diagnosis SNOMED-CT Code Diagnosis ICD10 Code Diagnosis Note [id number] HU BOYD MD [facility] [address] [address] 08/12/2024 11:01:09 08/12/2024 16:22:52 Sensorineural hearing loss of bilateral ears [id number] H90.3 Audiologic al evaluation results: Right ear: {{Normal N ormal through 2 kHz Mild M oderate Mo derately-s evere Radha re Profoun d Moderate raising to mild at 2kHz#}} {{hearing hearing. s loping to a mild slopi ng to a moderate s loping to moderately severe* sl oping to severe slo ping to profound f lat high frequency low frequency mid frequency cookie bite curran curve}} {{with sen sorineural hearing loss with* cond uctive hearing loss with mixed hearing loss with}} {{excellen t* good fa ir poor no measurable }} word recognitio n. Left ear: {{Normal N ormal through 2 kHz Mild M oderate Mo derately-s evere Radha re Profoun d Normal through 3 kHz#}} {{hearing hearing. s loping to a mild* slop ing to a moderate s loping to moderately severe slo ping to severe slo ping to profound f lat high frequency low frequency mid frequency cookie bite curran curve}} {{with sen sorineural hearing loss with* cond uctive hearing loss with mixed hearing loss with}} {{excellen t* good fa ir poor no measurable }} word recognitio n. 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 Today we discussed the pathophysi ology of migraine and migraine associated phenomena such as dizziness, tinnitus, fluctuatin g hearing loss and visual aura. We discussed how the patient's constellat ions of symptoms are likely mediated by a central processing abnormalit y rather than an isolated inner ear abnormalit y. I gave the patient a significan t amount of literature to review at home regarding how there are many environmen shira and dietary triggers that can lead to not only migraine headaches but balance disturbanc e and auditory symptoms as well. We spent a lot of time discussing the importance of following a migraine diet. We have offered the patient a copy of the Heal Your Headache book to read at home, which gives a step-by-st ep discussion on what causes migraine and how to make the necessary lifestyle and dietary changes to significan tly reduce or eliminate migraine symptoms.I have also recommende d the use of dietary supplement s magnesium, vitamin B2 and feverfew which have been shown to help control migrainous phenomena. We discussed dosage and schedule for these supplement s. We discussed alternativ e of using Migranol, which contains a combinatio n of magnesium, vitamin B2, and feverfew.F ollow up: {{As needed I will see the patient back in 6-8 weeks and if the patient is still symptomati c we could consider pharmacolo gic interventi on, typically in the form of low dose nortriptyl ine*}} Vertigo of central origin 52275260 H81.4 [id number] HU BOYD MD [facility] [address] [place] [address] 10/18/2024 08:44:00 10/18/2024 10:00:28 Disorder of acoustic nerve 19360398 H93.3X1 Migraine variants 873858 005 G43.809 The patient's history and audiometri c findings continue to be 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 While the patient did start on the magnesium and vitamin B2 as I recommende d, he has made no additional efforts to identify and eliminate dietary or lifestyle triggers that could be contributi ng to his persistent symptoms. Hallpike testing was negative for BPPV today. Today we discussed the fact that he may have much more potential control over his symptoms of headache, dizziness and fluctuatin g hearing loss if he is willing to take the time to read and follow the recommenda tions that I provided him with regards to identifica tion and eliminatio n of triggers. Once again, I recommende d the Heal Your Headache book to help him in this regard. We discussed the pros and cons of starting him on medication such as low-dose nortriptyl ine, but we both agreed that we would like to keep him off any prescripti on medication s if he can find out what is triggering his symptoms.P atient will follow-up in 3 months for reevaluati on. Vertigo of central origin 92671345 H81.4 Sensorineu ral hearing loss of bilateral ears 443553522 H90.3 Audiologic al evaluation results:Ri ght ear:{{Norm al Normal through 2 kHz Mild* Moderate M oderately- severe Sev ere Profou nd}} {{hearing hearing. s loping to a mild slopi ng to a moderate* sloping to moderately severe slo ping to severe slo ping to profound f lat high frequency low frequency mid frequency cookie bite curran curve}} {{with sen sorineural hearing loss with* cond uctive hearing loss with mixed hearing loss with}} {{excellen t* good fa ir poor no measurable }} word recognitio n. Health Concerns Section Related Observation LastModified by Organization Detai ls LastModified Time None Recorded Concern Status LastModified by Organization Details LastModified Time None Recorded Advance Directives Directive None Recorded Payers Encounter Date Sequence Insurance Name Policy Number Policy Hawthorne Covered Member ID Hawthorne Member ID Guarantor Name 08/12/2024 1 [facility] [id number] Dorian Blood [id number] Dorian Blood 10/18/2024 1 [facility] [id number] Dorian Blood [id number] Dorian Blood Notes Date Note Type Note Provider Name and Address Organization Details Recorded Time 5 text/html 59-year-old male previously seen by Dr. Lemus back in October 2022 with asymmetric right-sided hearing loss and tinnitus. MRI scan in October 2022 showed a punctate 1.5 mm enhancing focus within the left internal auditory likely consistent with a small tumor. Follow-up MRI in April 2023 showed persistent enhancing lesion which was unchanged in size but was felt to be possibly a lipoma versus schwannoma 1 year MRI scan recommended which was carried out in April 2024. This showed decreased conspicuity of the previously described punctate lesion of the left IAC, favored to reflect artifact or vascular enhancement more likely than a tiny nerve sheath tumor. No facial twitching or weakness. Patient reports that the hearing in the right ear tends to fluctuate from day-to-day. About 50% of the time the hearing will be better, and 50% of the time it will be worse. The tinnitus in the right ear fluctuates as well, but sometimes he hears well out of the ear even when the tinnitus is louder. Patient reports episodic dizziness which has been occurring periodically over the last 3 years, but none in the last 4 months or so. Patient's episodes will start with a low-grade sensation of imbalance which will last for an hour or 2, then he will have severe spinning sensation, nausea and vomiting which will last about 35 minutes or so, then will subside. He is not sure if the hearing fluctuates during the episodes of dizziness. Patient does report that in the past he had rather significant and severe headaches about 3 days a week. He has not had as many headaches recently.Patient does have a neurologist who is treating him for migraine. He has been on topiramate in the past, but he stopped this on his own. He was also previously on hydrochlorothiazide which he stopped as well. HU BOYD MD [address] [place] [address],[address], [address], [facility] - [facility] 08/13/2024 15:00:14 5 text/html Patient with history of fluctuating sensorineural hearing loss and speech discrimination with associated episodic headaches and dizziness which are consistent with combination of M? ? ?ni? ? ?re's disease and cochlear vestibular migraine. At his last visit back in July I provided him a significant amount of information on this disease process, along with information to identify and eliminate migraine triggers. I recommended dietary supplements of magnesium and vitamin B2. Patient returns today for reevaluation and assessment of symptoms.Patient feels like his headaches are getting better, now once or twice a week. Patient notes lightheadedness and wooziness particularly in the morning. Patient has been getting some positionally induced dizziness, particularly lying flat and working underneath his car. He has been taking magnesium and vitamin B2. He did not get the chance to read the migraine book that I recommended. He has not made any dietary changes recommended on the migraine handout. HU BOYD MD [address] [place] [address],[address], [address], [facility] 10/18/2024 09:58:12
--- OUTSIDE RECORDS SUMMARY | 2024-11-01 10:56 | XMS_ITS | Clinical Summary ---
Author Organization [facility] Address [address] [place] [address] Phone Care Team Providers Care Pill Maker Name Role Phone Randy Abdullahi MD Primary Care Provider [phone] Allergies No known active allergies Medications pravastatin [...] Noted Date Diagnosed Date Essential hypertension 04/29/2023 Stage 3a chronic kidney disease 04/29/2023 Renal [...] of Phone Billing Address Personal/Family Self [address] [place] [address] Member Subscriber Plan / Payer (Ef fective 2022-Present) Name:Dorian Blood Relation to Subscriber:Self Name:Dorian Blood Payer ID:Not on file Type:Not on file Address: [address] [address] * Guarantor: Dorian Blood Account Type Relation to Patient Date of Phone Billing Address Personal/Family Self [address] [place], [place] [id number] [facility] Member Subscriber Plan / Payer (Ef fective 2022-Present) Name:Dorian Blood Relation to Subscriber:Self Name:Dorian Blood Payer ID:Not on file Type:Not on file Address: [address] [address] Care Teams Pill Maker Relationship Specialty Start Date End Date Randy Abdullahi MD [address] [place] [address] PCP - General 07/10/20
== END 2024-11-01 10:21 | disposition home or self-care (01) ==
LOC: HO.HMCH 09:49
PROVIDERS: PCP Internal Medicine; Visit Provider Internal Medicine
DX: I12.9 Hypertensive chronic kidney disease with stage 1 through stage 4 chronic kidney disease, or unspecified chronic kidney disease (principal); N18.31 Chronic kidney disease, stage 3a; E66.9 Obesity, unspecified; Z68.33 Body mass index [BMI] 33.0-33.9, adult; E78.00 Pure hypercholesterolemia, unspecified; E55.9 Vitamin D deficiency, unspecified; K21.9 Gastro-esophageal reflux disease without esophagitis; R42 Dizziness and giddiness; H90.3 Sensorineural hearing loss, bilateral; R20.0 Anesthesia of skin; R20.2 Paresthesia of skin; M54.2 Cervicalgia

== ENCOUNTER → 2024-11-01 09:48 | Outpatient (BNVA) | payer OTHER, SELFPAY | PROVIDERS: PCP Internal Medicine; Visit Provider Internal Medicine | DX: E78.00 Pure hypercholesterolemia, unspecified (principal); I12.9 Hypertensive chronic kidney disease with stage 1 through stage 4 chronic kidney disease, or unspecified chronic kidney disease; N18.31 Chronic kidney disease, stage 3a; E55.9 Vitamin D deficiency, unspecified; K21.9 Gastro-esophageal reflux disease without esophagitis; R42 Dizziness and giddiness; H90.3 Sensorineural hearing loss, bilateral; R20.0 Anesthesia of skin; R20.2 Paresthesia of skin; M54.2 Cervicalgia; E66.9 Obesity, unspecified; Z68.33 Body mass index [BMI] 33.0-33.9, adult; Z79.899 Other long term (current) drug therapy | CPT/HCPCS: 96127 ==

== ENCOUNTER 2025-03-18 06:46 | Outpatient (REF) | payer OTHER, SELFPAY ==
--- OUTSIDE RECORDS SUMMARY | 2025-03-18 06:49 | XMS_ITS | Clinical Summary ---
Author Organization [facility] Address [address] [place] [address] Phone Care Team Providers Care Delivery Person Name Role Phone Randy Abdullahi MD Primary Care Provider [phone] Allergies No known active allergies Medications pravastatin [...] Colorectal Cancer Screening: Sigmoidoscopy 2014 Influenza Vaccine (#1) 2025 Insurance * Guarantor: Dorian Blood Account Type Relation to Patient Date of Phone Billing Address Personal/Family Self [address] [place] [address] Member Subscriber Plan / Payer (Ef fective 2022-Present) Name:Dorian Blood Relation to Subscriber:Self Name:Dorian Blood Payer ID:Not on file Type:Not on file Address: [address] [address] * Guarantor: Dorian Blood Account Type Relation to Patient Date of Phone Billing Address Personal/Family Self [address] [place] [address] Member Subscriber Plan / Payer (Ef fective 2022-Present) Name:Dorian Blood Relation to Subscriber:Self Name:Dorian Blood Payer ID:Not on file Type:Not on file Address: [address] [address] Care Teams Delivery Person Relationship Specialty Start Date End Date Randy Abdullahi MD [address] [place], [place] PCP - General 07/10/20
[2025-03-18 07:00] LABS: MANUAL DIFF FLAG NO
[2025-03-18 07:44] LABS: Hematocrit 44.3 % (42.0-52.0); Hemoglobin 14.8 g/dl (14.0-18.0); Imm Gran Abs Auto 0.02 X10*3/uL (0.00-0.03); Imm Gran Pct Auto 0.2 % (0.0-0.4); Lymphocytes Absolute Auto 3.0 X10*3/uL (1.2-4.9); Mean Corpuscular HGB Conc 33.4 g/dl (31.0-36.0); Mean Corpuscular Hemoglobin 28.0 pg (27.0-33.0); Mean Corpuscular Volume 83.7 fL (80.0-98.0); NRBC Abs Auto 0.000 X10*3/uL (0.0-0.012); NRBC Pct Auto 0.0 /100WBC (0.0-0.2); Platelet Count 266 X10*3/uL (160-400); Red Blood Count 5.29 X10*6/uL (4.60-5.80); White Blood Count 9.3 X10*3/uL (4.8-10.8)
[2025-03-18 08:34] LABS: Alanine Aminotransferase 33 U/L (0-40); Albumin Level 4.3 g/dL (3.5-5.0); Alkaline Phosphatase 73 U/L (39-117); Anion Gap 10 (12-20); Aspartate Amino Transferase 26 U/L (5-37); Blood Urea Nitrogen 27 mg/dL (9-16); Calcium 9.3 mg/dL (8.4-10.2); Carbon Dioxide 28 mmol/L (22-29); Chloride 107 mmol/L (96-108); Cholesterol 207 mg/dL (<200); Estimated Glomerular Filt Rate 52; HDL Cholesterol 45 mg/dL (>40); Potassium 4.4 mmol/L (3.3-5.1); Sodium 141 mmol/L (135-145); Total Protein 7.4 g/dL (6.5-8.0); Triglycerides 73 mg/dL (<150)
[2025-03-18 08:34] LABS: Appearance Urine Clear; Glucose Urine UA Negative (Negative); PH 6.5 (5.0-9.0); Specific Gravity - Urine 1.015 (1.005-1.025); UMIC TRIGGER UACC YES
== END 2025-03-18 06:47 | disposition home or self-care (01) ==
LOC: HO.LAB 06:46
PROVIDERS: PCP Internal Medicine; Visit Provider Internal Medicine
DX: R30.0 Dysuria (principal); E78.00 Pure hypercholesterolemia, unspecified; E55.9 Vitamin D deficiency, unspecified; D64.9 Anemia, unspecified
CPT/HCPCS: 36415; 80053; 80061; 81001; 82306; 84443; 85025

== ENCOUNTER 2025-03-22 10:24 | Outpatient (AMB) | payer OTHER, SELFPAY ==
[2025-03-22 10:50] VITALS: BP 124/80; PULSE 75; O2SAT 96; BMI 31.5
--- NOTE | 2025-03-22 10:50 | A.OFFPC_ITS ---
Vital Signs 03/22/25 10:50 Height 5 ft 9 in Weight 213 lb 8 oz BMI 31.5 BP 124/80 Blood Pressure Location Lt brachial Position Sitting Pulse 75 Pulse Source Pulse Oximeter Pulse Oximetry (%) 96 Oxygen Delivery Method Room Air Intake Visit Reasons: hyperlipidemia Acrobatic Rigger Required: No Accompanied by: Self / Same As Patient Allergies No Known Allergies (No Known Allergies*) Allergy (Verified 03/22/25 11:21) Medication List - Last Reconciled 03/22/25 by Schuyler Curiel MD albuterol sulfate 90 mcg/actuation (Ventolin HFA) 1 inh inhalation QID PRN amlodipine 5 mg PO DAILY aspirin (Adult Low Dose Aspirin) 81 mg PO DAILY cholecalciferol (vitamin D3) 50 mcg PO DAILY 90 days lisinopril 40 mg PO DAILY 90 days [magnesium glycinate PO] pravastatin 20 mg PO DAILY sertraline 25 mg PO DAILY sumatriptan succinate 50 mg PO DAILY topiramate 50 mg PO BEDTIME [vitamin b2 PO] Tobacco use date assessed: 03/22/25 Dental Screening Dental Screen Date: 03/22/25 Did you have a dental visit in the last 12 months?: Yes Did you have a dental problem in the last 6 months where you did not have access to dental care?: No Was dental information given to patient?: Patient has dentist HPI hyperlipidemia HPI Details Patient comes in today for his follow up visit States that he feels okay He denies any headaches; still has occasional dizziness although it has not been occurring as often lately Denies any chest pains, no SOB No nausea/vomiting, no abdominal pain No change in bowel habits noted He had his follow up labs done a few days ago - to discuss his results [facility] Medical History Obesity (BMI 30-39.9) Vitamin D deficiency GERD without esophagitis RUQ pain Tinnitus of right ear Overweight (BMI 25.0-29.9) Chronic kidney disease (CKD), stage III (moderate) Pure hypercholesterolemia Benign essential hypertension Surgical History Hx laparoscopic cholecystectomy (~11/2020) Family History Father No problems noted. Mother Breast cancer Maternal Grandmother Breast cancer Social History Household Members: Spouse Housing: House Alcohol intake: current Alcohol intake frequency: holidays/special occasions only Patient Tobacco Use Status: Never used Tobacco e-Cigarette/Vaping Use: Never Used Second Hand Smoke Exposure: Yes service: No Current occupational status: unemployed Cognitive needs: No Hearing needs: No Vision needs: No Questionnaire PHQ-9 Over the last 2 weeks, how often have you been bothered by any of the following problems? Depression Screening Interpretation: Negative Depression Screening Done: Yes Source: Developed by Drs. Tino Larsen, Jada Temple, Arsenio Wahl and colleagues, with an educational isiah from [employer]. Thrive Questionnaire Date Thrive assessed: 11/01/24 What is your living situation today?: I have a steady place to live Within the past 12 months, did the food you bought not last and you didn't have the money to get more?: Often true Within the past 12 months, did you worry whether your food would run out before you got money to buy more?: Often true Do you have trouble paying for medicines?: I choose not to answer this question Do you have trouble getting transportation to medical appointments?: No Do you have trouble paying your heating and electricity bill?: I choose not to answer this question Do you have trouble taking care of your child, family member or friend?: No Do you have trouble with day-to-day activities such as bathing, preparing meals, shopping, managing finances, etc.?: No Are you currently unemployed and looking for a job?: Yes Are you interested in more education?: No Please select the resources that you would like help with: None Currently or been in a relationship where the following occur: I choose not to answer THRIVE Score: 2 AUDIT C Alcohol Use Questionnaire (AUDIT-C) 1. How often do you have a drink containing alcohol?: Monthly or less 2. How many drinks containing alcohol do you have on a typical day when you are drinking?: 3 or 4 3. How often do you have six or more drinks on one occasion?: Less than monthly Total Score: 3 Score Reviewed/Action Taken: Yes RAYMOND-7 AMB Questionnaire RAYMOND-7 Date RAYMOND - 7 assessed: 11/01/24 Feeling nervous, anxious, or on edge: 0 = Not at all Not being able to stop or control worryin = Not at all Worrying too much about different things: 0 = Not at all Trouble relaxin = Not at all Being so restless that it is hard to sit still: 0 = Not at all Becoming easily annoyed or irritable: 0 = Not at all Feeling afraid as if something awful might happen: 0 = Not at all Total RAYMOND-7 score (0-4 normal; 5-9 mild; 10-14 moderate; 15-21 severe): 0 Source: Developed by Drs. Tino Larsen, Jada Temple, Arsenio Wahl and colleagues, with an educational isiah from [employer]. Review of Systems Const Denies chills, Denies fatigue, Denies fever(s) and Denies headache(s) ENT Denies dysphagia, Reports dizziness (occasional), Denies otalgia, Denies headache(s), Reports hearing loss (bilateral), Denies neck pain, Denies odynophagia, Reports tinnitus (on and off, in the right ear) and Denies sore throat Card Denies chest pain, Denies palpitations and Denies dyspnea Resp Denies chest congestion, Denies cough and Denies dyspnea GI Denies abdominal pain, Denies constipation, Denies dysphagia, Denies heartburn, Denies diarrhea, Denies nausea, Denies odynophagia and Denies vomiting Denies difficulty urinating, Denies dysuria, Denies nocturia and Denies urinary frequency Musc Denies back pain, Reports arthralgias ( usual aches and pains - on and off), Denies neck pain, Reports numbness (on and off in the right hand) and Reports tingling (on and off in the right hand) Skin/Breast Denies rash Neuro Reports dizziness (occasional), Denies headache(s), Reports numbness (on and off in the right hand) and Reports tingling (on and off in the right hand) Psych Reports anxiety Endo Denies fatigue and Denies palpitations Physical exam (Primary Care) Vital Signs: Last Vital Signs Pulse 75 03/22/25 10:50 BP 124/80 03/22/25 10:50 Pulse Ox 96 03/22/25 10:50 Oxygen Delivery Method Room Air 03/22/25 10:50 BMI result Body Mass Index 31.5 Tobacco/Smoking Status: Tobacco use Status Tobacco use date assessed 03/22/25 03/22/25 10:57 Patient Tobacco Use Status Never used Tobacco 03/22/25 10:57 e-Cigarette/Vaping Use Never Used 03/22/25 10:57 Depression Screening Interpretation: Negative Thrive Assessment: Date of Thrive Assessment Date Thrive assessed 11/01/24 03/22/25 10:57 Currently or been in a relationship where the following occur: I choose not to answer Const General: no acute distress and alert HENMT Ears: TM's normal bilaterally and EAC's normal Throat: Yes posterior oropharynx normal and Yes tonsils normal (no TP congestion noted) Neck Other: (+) mild tenderness over the back of the neck Neck: Yes supple and No lymphadenopathy Thyroid: Thyroid normal Resp Auscultation: clear to auscultation bilaterally, no rales and no wheezes Cardio Rate: regular rate Rhythm: regular rhythm Heart sounds: no murmurs GI Palpation (GI): Soft to palpation and nontender Auscultation: normal bowel sounds General: Yes no CVA tenderness Back/Spine/Pelvis Back: no CVA tenderness Thoracic/Lumbar Spine: No lumbar spinal tenderness Skin Rashes: no rashes Extrem General: Yes no clubbing, cyanosis or edema Results Reviewed Results Reviewed: Laboratory Tests 03/18/25 03/18/25 06:52 06:55 WBC 9.3 Hgb 14.8 Hct 44.3 Plt Count 266 Sodium 141 Potassium 4.4 Creatinine 1.40 Estimated GFR 52 Fasting Glucose 97 Calcium 9.3 AST 26 ALT 33 Alkaline Phosphatase 73 Triglycerides 73 Cholesterol 207 H LDL Cholesterol, Calc 148 H HDL Cholesterol 45 25-OH Vitamin D Total 48.5 TSH 2.11 Ur Specific [place] 1.015 Urine Protein Negative Urine Glucose (UA) Negative Urine Blood Trace H Urine Nitrite Negative Ur Leukocyte Esterase Negative Coding Level of Care Code Est Pt Level 4 (38768) Diagnoses Pure hypercholesterolemia E78.00 Benign essential hypertension I10 Stage 3a chronic kidney disease N18.31 Chronic kidney disease stage 3 subtype: stage 3a (GFR 45-59) Vitamin D deficiency E55.9 GERD without esophagitis K21.9 Dizziness R42 Sensorineural hearing loss (SNHL) of both ears H90.3 Laterality: bilateral Numbness and tingling in right hand R20.0; R20.2 Neck pain M54.2 Obesity (BMI 30-39.9) E66.9 Assessment & Plan Assessment & Plan (1) Pure hypercholesterolemia: Code(s): E78.00 - Pure hypercholesterolemia, unspecified Category: Medical Plan: Results of his labs done a few days ago reviewed and discussed with patient - patient is advised that his cholesterol levels have again increased from previous, especially his LDL cholesterol Reinforced low cholesterol diet - patient still admits to poor dietary compliance recently Will go ahead and increase her Pravastatin from 20 mg to 40 mg QD for now and if this still does not get him to goal, may then need to switch him over to Atorvastatin or Rosuvastatin for better efficacy Will recheck his labs and fasting lipids in 4 months for follow up (2) Benign essential hypertension: Code(s): I10 - Essential (primary) hypertension Category: Medical Plan: Reinforced low sodium diet - goal is systolic BP of 120 mm or less Continue Lisinopril 40 mg QD, Amlodipine 5 mg QD and HCTZ 25 mg QD (HCTZ was previously discontinued but he was started back on this by Dr. Guido last year for elevated BP) Patient is reminded to continue monitoring his BP closely (3) Chronic kidney disease (CKD), stage III (moderate): Code(s): N18.30 - Chronic kidney disease, stage 3 unspecified Category: Medical Qualifiers: Chronic kidney disease stage 3 subtype: stage 3a (GFR 45-59) Qualified Code(s): N18.31 - Chronic kidney disease, stage 3a Plan: His renal function has remained stable based on his recent labs Will continue to monitor his renal function regularly (4) Vitamin D deficiency: Code(s): E55.9 - Vitamin D deficiency, unspecified Category: Medical Plan: Continue Vitamin D3 2000 units QD (5) GERD without esophagitis: Code(s): K21.9 - Gastro-esophageal reflux disease without esophagitis Category: Medical Plan: Dietary restrictions reinforced Continue Omeprazole 20 mg QD (6) Dizziness: Code(s): R42 - Dizziness and giddiness Category: Medical Plan: MRI and CTs of the brain done over the past couple of years have NOT revealed any pertinent findings to help explain his dizziness, although his imaging studies did show (+) chronic ischemic microangiopathy in the white matter of both cerebral hemispheres that are stable in appearance and a tiny remote deep white matter infarct in the right parietal white matter that is unchanged in appearance. No acute or subacute cerebral ischemic changes are seen States that canalith positioning with physical therapy in the past helped minimally He was referred to and seen by ENT a couple of years ago and they also cannot explain patient's symptoms and considered the possibility of labyrinthitis vs. vestibular neuritis He was tried on Acetazolamide 125 mg BID, which patient states also did not help much He was seen again for follow up by ENT in [place] and sent for a repeat brain MRI for further evaluation, which reportedly came back with no acute findings Has been taking Meclizine 25 mg TID PRN but states that it has also not been helping, and has been reminded again that there may really be no effective Rx for his dizziness States that Dr. Guido more recently has entertained the possibility of a migraine variant for his symptoms and has tried him on Topiramate 25 mg Q HS, which was increased to 50 mg daily at his last visit He was also started on Sertraline 25 mg Q AM to help with his anxiety, which may be aggravating his symptoms as well Lyme disease test done recently also came back negative Follow up with neurology as scheduled (7) Sensorineural hearing loss: Code(s): H90.5 - Unspecified sensorineural hearing loss Category: Medical Qualifiers: Laterality: bilateral Qualified Code(s): H90.3 - Sensorineural hearing loss, bilateral Plan: Audiogram done a few years ago (in 2020) revealed (+) sensorineural hearing loss in both ears Follow up with Speech and Hearing as scheduled (8) Numbness and tingling in right hand: Code(s): R20.0 - Anesthesia of skin; R20.2 - Paresthesia of skin Category: Medical Plan: He was seen by Neurology a few years ago for this and was sent for an MRI of the brain, which showed changes of chronic microangiopathy and findings consistent with his history of CVA, with no new findings noted Head CT done in 2022 also came back negative Patient also reportedly had an EMG and nerve conduction velocity done a couple of years ago that came back normal Follow up with neurology as scheduled (9) Neck pain: Code(s): M54.2 - Cervicalgia Category: Medical Plan: Cervical spine x-rays done back on 04/29/2024 revealed (+) multilevel degenerative changes of the cervical spine Will consider referring him to physical therapy for his neck pain if his symptoms get worse (10) Obesity (BMI 30-39.9): Code(s): E66.9 - Obesity, unspecified Category: Medical Plan: Reinforced diet; exercise and weight loss are impractical for patient at this time due to his recurrent dizziness and multiple comorbidities although he was abke to lose about 10 pounds since his last visit Plan Follow up in 4 months Orders: Orders Lipid Panel 4 Months E78.00 - Pure hypercholesterolemia, unspecified Comprehensive [place]. Panel Fast 4 Months E78.00 - Pure hypercholesterolemia, unspecified TSH reflex Free T4 4 Months E78.00 - Pure hypercholesterolemia, unspecified UA CC w/rflx Micro + Cult 4 Months R30.0 - Dysuria Vitamin D 25-OH Total 4 Months E55.9 - Vitamin D deficiency, unspecified Complete Blood Count Auto Diff 4 Months D64.9 - Anemia, unspecified Vitamin B12 and Folate 4 Months E53.8 - Deficiency of other specified B group vitamins Medications: Changed From pravastatin 20 mg PO DAILY 90 tabs 3RF E78.00 - Pure hypercholesterolemia, unspecified To pravastatin 40 mg PO DAILY 90 tabs 1RF 90 days E78.00 - Pure hypercholesterolemia, unspecified
--- OUTSIDE RECORDS SUMMARY | 2025-03-22 12:44 | XMS_ITS | Clinical Summary ---
Author Organization [facility] Address [address] [place] [address] Phone Care Team Providers Care Finish Painter Name Role Phone Randy Abdullahi MD Primary Care Provider [phone] Allergies No known active allergies Medications pravastatin [...] of Phone Billing Address Personal/Family Self [address] [place] [address] Member Subscriber Plan / Payer (Ef fective 2022-Present) Name:[employer]orian [employer] Relation to Subscriber:Self Name:Dorian Blood Payer ID:Not on file Type:Not on file Address: [address] [address] * Guarantor: Dorian [employer] Account Type Relation to Patient Date of Phone Billing Address Personal/Family Self [address] [place] [address] Member Subscriber Plan / Payer (Ef fective 2022-Present) Name:Dorian Blood Relation to Subscriber:Self Name:Dorian Blood Payer ID:Not on file Type:Not on file Address: [address] [address] Care Teams Finish Painter Relationship Specialty Start Date End Date Randy Abdullahi MD [id number] [place], [place] PCP - General 07/10/20
== END 2025-03-22 11:32 | disposition home or self-care (01) ==
LOC: HO.HMCH 10:25
PROVIDERS: PCP Internal Medicine; Visit Provider Internal Medicine
DX: I12.9 Hypertensive chronic kidney disease with stage 1 through stage 4 chronic kidney disease, or unspecified chronic kidney disease (principal); N18.31 Chronic kidney disease, stage 3a; E66.9 Obesity, unspecified; Z68.31 Body mass index [BMI] 31.0-31.9, adult; E78.00 Pure hypercholesterolemia, unspecified; E55.9 Vitamin D deficiency, unspecified; K21.9 Gastro-esophageal reflux disease without esophagitis; R42 Dizziness and giddiness; H90.3 Sensorineural hearing loss, bilateral; R20.0 Anesthesia of skin; R20.2 Paresthesia of skin; M54.2 Cervicalgia

== ENCOUNTER 2025-06-16 11:21 | Outpatient (AMB) | payer OTHER, SELFPAY ==
--- NOTE | 2025-06-16 11:24 | A.OFFVIS_ITS ---
Vital Signs 06/16/25 11:47 06/16/25 11:48 BP 141/83 H 132/89 Position Sitting Standing Pulse 70 75 Intake Visit Reasons: 6M Migraine Allergies No Known Allergies (No Known Allergies*) Allergy (Verified 06/16/25 11:33) Medication List - Last Reconciled 06/16/25 by Erlinda Ruth CNP albuterol sulfate 90 mcg/actuation (Ventolin HFA) 1 inh inhalation QID PRN amlodipine 5 mg PO DAILY aspirin (Adult Low Dose Aspirin) 81 mg PO DAILY cholecalciferol (vitamin D3) 50 mcg PO DAILY 90 days lisinopril 40 mg PO DAILY 90 days [magnesium glycinate PO] meclizine 25 mg PO BID PRN ondansetron HCl 4 mg PO DAILY pravastatin 40 mg PO DAILY 90 days sumatriptan succinate 50 mg PO DAILY [vitamin b2 PO] HPI Comments Details: No significant headaches. He was still having some dizziness, which may have happened a bit more last month. He could not say how often dizziness was happening, or if there were any specific triggers. He noted some more dizziness with increased dose of pravastatin and went back to his previous dose. He was planning to discuss this with his PCP at his follow up next month. He describes the dizziness as a feeling of lightheadedness, and also sometimes as sensation of spinning or movement. The sensation of movement is reduced if he can close his eyes. In 04/2025, he got feeling of dizziness while driving and headlights started to bother his eyes. He had to nail puller and close his eyes. No headache at the time. He has never passed out and there is no confusion with the episodes. He has meclizine, but does not take medication at all, even as needed when having symptoms. Tinnitus to R ear was horrible. It was there every day, but some days were better than others. [place]. In the past, was having dizzy spells, headaches, nausea, and vomiting. Dizzy spells could be triggered by position changes and may last up to 2 hours. Feels better if he stays still with eyes shut. Headaches to top of head, pressure and sometimes throbbing-type pain with sonophobia. Headaches started after stroke. Stopped HCTZ, did not help and was causing BP to drop. Recurrence of vertigo for a week in 10/2023. Hearing is worse, 75% hearing loss on the right. Tinnitus in right ear. BP fluctuates. Gets dizziness off and on with lightheadedness and vertigo. Gets episodic tinnitus most days. Has h/o stroke on 02/06/2013 where he could not move his left side and [place] [facility] [place] was told he had small stroke. Weakness improved. His BP was high. He had h/o HTN before the stroke and he was not taking his pills. No h/o cocaine use. Also reports intermittent numbness in the right hand sometimes while driving. He follows with ENT. Last MRI before in 12/2021 showed microvascular disease. [facility] Medical History (Updated 06/16/25 @ 13:06 by Erlinda Ruth CNP) Stroke Carpal tunnel syndrome Menieres disease Basilar migraine Obesity (BMI 30-39.9) Vitamin D deficiency GERD without esophagitis RUQ pain Tinnitus of right ear Overweight (BMI 25.0-29.9) Chronic kidney disease (CKD), stage III (moderate) Pure hypercholesterolemia Benign essential hypertension Surgical History Hx laparoscopic cholecystectomy (~11/2020) Family History Father No problems noted. Mother Breast cancer Maternal Grandmother Breast cancer Social History Household Members: Spouse Housing: House Alcohol intake: current Alcohol intake frequency: holidays/special occasions only Patient Tobacco Use Status: Never used Tobacco e-Cigarette/Vaping Use: Never Used Second Hand Smoke Exposure: Yes service: No Current occupational status: unemployed Cognitive needs: No Hearing needs: No Vision needs: No Review of Systems Const Denies chills, Denies daytime sleepiness, Denies difficulty sleeping, Denies fatigue, Denies fever(s), Denies frequent falls, Reports headache(s), Denies increased appetite, Denies poor appetite, Denies snoring, Denies weakness, Denies weight gain and Denies weight loss Eyes Denies loss of vision ENT Denies vertigo, Reports dizziness, Reports headache(s), Denies neck pain and Reports tinnitus Card Denies chest pain at rest, Denies chest pain with activity, Denies syncope, Denies leg edema, Denies palpitations, Denies dyspnea and Denies dyspnea on exertion Resp Denies cough, Denies dyspnea, Denies dyspnea on exertion and Denies snoring GI Denies abdominal pain, Denies constipation, Denies heartburn, Denies diarrhea and Denies nausea Denies urinary frequency, Denies urinary incontinence and Denies urinary urgency Musc Denies abnormal gait, Denies back pain, Denies myalgias, Denies arthralgias, De nies neck pain, Denies numbness and Denies tingling Neuro Denies abnormal gait, Denies vertigo, Reports dizziness, Denies syncope, Denies frequent falls, Reports headache(s), Denies lack of coordination, Denies loss of vision, Denies memory loss, Denies numbness, Denies Other visual disturbances, Denies restless legs, Denies seizure-like activity, Denies tingling, Denies p aresthesias, Denies tremor(s) and Denies weakness Psych Denies anxiety, Denies depression, Denies auditory hallucinations, Denies memory loss and Denies visual hallucinations Endo Denies fatigue and Denies palpitations Physical Exam Vital Signs: Last Vital Signs Pulse 75 06/16/25 11:48 BP 132/89 06/16/25 11:48 Const Other: General Appearance:? normal, in no acute distress. Heart:? S1, S2 normal, no murmurs. Lungs:? clear anteriorly and posteriorly. Musculoskeletal:? normal. Extremities:? no edema. Psych:? alert, oriented, cognitive function intact, cooperative with exam. Neuro Other: Abnormal Neurological Findings:?none.? Mental Status: alert and oriented X 3. Normal attention, orientation, memory, and affect. Cranial Nerves: Pupils are equal, round, and reactive to light. External ocular muscles are intact. Visual galvez are full, no ptosis. Face is symmetrical, no facial weakness or droop. Facial sensations are normal. Tongue protrudes in midline. Palate elevates symmetrically. Shoulder shrugging is normal Motor Examination: Normal muscle tone, bulk and strength. No atrophy or fasciculations. No drift of the extended upper extremities. DTR 2+. Plantars are flexor. Sensory Exam: Normal light touch, temperature, pinprick, vibration, and joint- position sensations. Rhomberg sign is absent. Coordination: No ataxia. No titubation. Gait Exam: Within normal limits. Cerebellar Signs: [id number] is okay. Extrapyramidal System: No tremor, rigidity with normal facial expressions. No bradykinesia. No bradyphrenia. Normal arm swing and posture. No propulsion or retropulsion. Speech: Normal. Results Reviewed Results Reviewed: 01/21/22 NCV/EMG UE Normal motor and sensory nerve conduction velocities in the upper extremities. Normal EMG in the right C5-T1 innervated muscles. 01/21/22 STEPHANI SAE- WNL 01/02/22 MRI Chronic ischemic microangiopathy in the white matter of both cerebral hemispheres stable in appearance and a tiny remote deep white matter infarct in the right parietal white matter unchanged in appearance. No acute or subacute cerebral ischemia. Labs 03/2024 NL Assessment & Plan Assessment & Plan (1) Basilar migraine: Code(s): G43.109 - Migraine with aura, not intractable, without status migrainosus Category: Medical Plan: Continue sumatriptan 50mg 1 tablet as needed for migraine. Continue ondansetron 4mg 1 tablet as needed for nausea/vomiting #10 for 30 days. Continue meclizine 25mg 1 tablet twice a day as needed for dizziness #60 for 30 days. (2) Menieres disease: Comment: ? Mild form of Meniere's disease with episodic tinnitus, decreased hearing, and vertigo. Code(s): H81.09 - Meniere's disease, unspecified ear Category: Medical Qualifiers: Laterality: unspecified laterality Qualified Code(s): H81.09 - Meniere's disease, unspecified ear Plan: Question of mild form of Meniere's disease with episodic tinnitus, decreased hearing, and vertigo. He was tried on hydrochlorothiazide in the past, but medication was apparently stopped due to low blood pressure. Of note, PMHx significant for CKD stage 3 (BUN/creat 27/1.40 in 02/2025) and hypertension currently treated with amlodipine and lisinopril. (3) Vertigo: Code(s): R42 - Dizziness and giddiness Category: Medical Plan: He was encouraged to try meclizine 25mg 1 tablet at bedtime x7 days to see if symptoms improve. If symptoms improve, may continue meclizine 25mg 1 tablet at bedtime and 1 tablet daily as needed for dizziness. Follow up in 4 months or sooner as needed. (4) Tinnitus: Code(s): H93.19 - Tinnitus, unspecified ear Category: Medical Qualifiers: Laterality: unspecified laterality Qualified Code(s): H93.19 - Tinnitus, unspecified ear (5) Cerebral microvascular disease: Code(s): I67.89 - Other cerebrovascular disease Category: Medical Plan: Continue low dose aspirin and statin. Control blood pressure. (6) History of stroke: Code(s): Z86.73 - Personal history of transient ischemic attack (TIA), and cerebral infarction without residual deficits Category: Medical Plan Meds tried: topiramate (no side effects) Coding Level of Care Code Est Pt Level 4 (06334) Diagnoses Basilar migraine G43.109 Meniere's disease, unspecified laterality H81.09 Laterality: unspecified laterality Vertigo R42 Tinnitus, unspecified laterality H93.19 Laterality: unspecified laterality Cerebral microvascular disease I67.89 History of stroke Z86.73
[2025-06-16 11:47] VITALS: BP 141/83; PULSE 70
[2025-06-16 11:48] VITALS: BP 132/89; PULSE 75
--- OUTSIDE RECORDS SUMMARY | 2025-06-16 14:57 | XMS_ITS | Clinical Summary ---
Author Organization [facility] Address [address] [place] [address] Phone Care Team Providers Care Residential Door Installer Name Role Phone Randy Abdullahi MD Primary Care Provider [phone] Allergies No known active allergies Medications pravastatin [...] of Phone Billing Address Personal/Family Self [address] [place] [address] Member Subscriber Plan / Payer (Ef fective 2022-Present) Name:Dorian Blood Relation to Subscriber:Self Name:Dorian Blood Payer ID:Not on file Type:Not on file Address: [address] [address] * Guarantor: Dorian Blood Account Type Relation to Patient Date of Phone Billing Address Personal/Family Self [address] [place] [address] Member Subscriber Plan / Payer (Ef fective 2022-Present) Name:Dorian Blood Relation to Subscriber:Self Name:Dorian Blood Payer ID:Not on file Type:Not on file Address: [address] [address] Care Teams Residential Door Installer Relationship Specialty Start Date End Date Randy Abdullahi MD [address] [place], [place] PCP - General 07/10/20
== END 2025-06-16 11:56 | disposition home or self-care (01) ==
LOC: HO.HSM 11:22
PROVIDERS: PCP Internal Medicine; Referring Provider Internal Medicine; Visit Provider Registered Nurse
DX: G43.109 Migraine with aura, not intractable, without status migrainosus (principal); H81.09 Meniere's disease, unspecified ear; R42 Dizziness and giddiness; H93.19 Tinnitus, unspecified ear; I67.89 Other cerebrovascular disease; Z86.73 Personal history of transient ischemic attack (TIA), and cerebral infarction without residual deficits
CPT/HCPCS: 99214